=== PATIENT | female | born 1950 | race African-American/Black ===

== ENCOUNTER 2019-12-31 15:36 | Inpatient (IN) | payer MEDICARE, OTHER ==
[~2019-12-31] VITALS: Ht 162.6 cm; Wt 82.6 kg
[2019-12-31] VITALS (9 sets, daily range): BP systolic 144–200; BP diastolic 58–89
[2019-12-31] MEDS ORDERED: IBUPROFEN600 MG ORAL (15:41)
[2019-12-31] MEDS ORDERED: AMLODIPINE BESY10 MG ORAL (15:41)
[2019-12-31] MEDS ORDERED: ISOSORBIDE MONO60 M1 PO (15:41)
[2019-12-31] MEDS ORDERED: HYDROCHLOROTHIA25 MG ORAL (15:41)
[2019-12-31] MEDS ORDERED: LEVOTHYROXINE125 MCG ORAL (15:41)
--- NOTE | 2019-12-31 15:41 | Emergency Room Report ---
History of Present Illness General Chief Complaint: Generalized Weakness Source: Patient, Medical Record, EMS Present Illness HPI 69-year-old female, past medical history of hypothyroidism, on thyroid medication history of partial hysterectomy history of breast cancer in remission presents with 1 week of feeling tired, no known aggravating relieving factors severity was moderate, constant, patient denies any chest pain but she does endorse feeling fatigued, patient had outpatient labs drawn showing a hemoglobin of 6.6 patient was sent in from clinic to receive a blood transfusion and admission and determine cause of anemia. Patient denies any black tarry stools, no vaginal bleeding no rectal bleeding Allergies: Coded Allergies: No Known Allergies (Unverified , 12/31/19) Patient History Past Medical History: see triage record Reviewed Nursing Documentation: PMH: Agreed; PSxH: Agreed Nursing Documentation-PMH Past Medical History: No History, Except For Hx Hypertension: Yes - Anemia Review of Systems All Other Systems: negative except mentioned in HPI Physical Exam Sp02 EP Interpretation: reviewed, normal General Appearance: alert, thin Head: normocephalic, atraumatic Eyes: bilateral eye PERRL, bilateral eye EOMI, bilateral eye conjunctivae pale ENT: uvula midline, moist mucus membranes Neck: supple, thyroid normal, supple/symm/no masses Respiratory: lungs clear, no respiratory distress, no retraction, no accessory muscle use Cardiovascular #1: normal peripheral pulses, regular rate, rhythm, no edema, no gallop, no murmur Gastrointestinal: non tender, soft, no guarding, no rebound Musculoskeletal: normal inspection Neurologic: alert, oriented x3 Psychiatric: mood/affect normal Skin: no rash, warm/dry Procedures Critical Care Time Critical Care Time Given the critical condition in which the patient arrived, the patient was immediately assessed by myself and the nurse, and cardiac monitoring initiated due to the potential for rapid decompensation of the patient's clinical condition. During the course of the patient's stay, I spent a considerable amount of time at the bedside performing serial re-evaluations of the patient's hemodynamic and clinical status because of the recognized potential threat to life or limb in this condition. I then had a chance to review not only all of the available current laboratory and radiographic studies obtained today, but I also reviewed old records available to me at the time. Additionally, any ancillary information available including airplane pilot photogrammetry records were reviewed. Sequential vital signs were obtained. Critical Care time of 33 minutes was performed exclusive of billable procedures. Medical Decision Making Diagnostic Impression: Primary Impression: Symptomatic anemia ER Course 69-year-old female presents with anemia of 6.6, unknown cause, differential diagnosis includes iron deficiency, occult bleed, anemia of chronic disease, plan is to transfuse patient, admit patient for work-up, patient will receive a blood transfusion Reevaluation 6:17 PM patient remained stable Patient accepted blood transfusion plan to transfuse blood Patient admitted to Dr. Gaspar Laboratory Tests Test 12/31/19 15:45 White Blood Count 8.3 K/UL (4.8-10.8) Red Blood Count 3.31 M/UL (4.20-5.40) L Hemoglobin 7.3 G/DL (12.0-16.0) L Hematocrit 24.6 % (37.0-47.0) L Mean Corpuscular Volume 74 FL (80-99) L Mean Corpuscular Hemoglobin 22.0 PG (27.0-31.0) L Mean Corpuscular Hemoglobin Concent 29.7 G/DL (32.0-36.0) L Red Cell Distribution Width 14.8 % (11.6-14.8) Platelet Count 334 K/UL (150-450) Mean Platelet Volume 5.9 FL (6.5-10.1) L Neutrophils (%) (Auto) % (45.0-75.0) Lymphocytes (%) (Auto) % (20.0-45.0) Monocytes (%) (Auto) % (1.0-10.0) Eosinophils (%) (Auto) % (0.0-3.0) Basophils (%) (Auto) % (0.0-2.0) Differential Total Cells Counted 100 Neutrophils % (Manual) 59 % (45-75) Lymphocytes % (Manual) 24 % (20-45) Monocytes % (Manual) 3 % (1-10) Eosinophils % (Manual) 11 % (0-3) H Basophils % (Manual) 3 % (0-2) H Band Neutrophils 0 % (0-8) Platelet Estimate Adequate Platelet Morphology Normal Polychromasia 1+ Hypochromasia 2+ Anisocytosis 1+ Microcytosis 2+ Prothrombin Time 11.0 SEC (9.30-11.50) Prothrombin Time INR 1.0 (0.9-1.1) Activated Partial Thromboplast Time 28 SEC (23-33) Sodium Level 145 MMOL/L (136-145) Potassium Level 4.5 MMOL/L (3.5-5.1) Chloride Level 109 MMOL/L (98-107) H Carbon Dioxide Level 19 MMOL/L (21-32) L Anion Gap 17 mmol/L (5-15) H Blood Urea Nitrogen 97 mg/dL (7-18) H Creatinine 4.4 MG/DL (0.55-1.30) H Estimate Glomerular Filtration Rate 9.9 mL/min (>60) Glucose Level 119 MG/DL (74-106) H Calcium Level 9.7 MG/DL (8.5-10.1) Total Bilirubin 0.2 MG/DL (0.2-1.0) Aspartate Amino Transferase (AST) 18 U/L (15-37) Alanine Aminotransferase (ALT) 15 U/L (12-78) Alkaline Phosphatase 109 U/L (46-116) Total Protein 9.2 G/DL (6.4-8.2) H Albumin 3.6 G/DL (3.4-5.0) Globulin 5.6 g/dL Albumin/Globulin Ratio 0.6 (1.0-2.7) L Disposition: ADMITTED INPATIENT Condition: Serious Daniel Peña MD Dec 31, 2019 15:41
[2019-12-31 16:38] LABS: ANION GAP 17 mmol/L (5-15); BLOOD UREA NITROGEN 97 mg/dL (7-18); CALCIUM 9.7 MG/DL (8.5-10.1); CARBON DIOXIDE 19 MMOL/L (21-32); CHLORIDE 109 MMOL/L (98-107); CREATININE 4.4 MG/DL (0.55-1.30); POTASSIUM 4.5 MMOL/L (3.5-5.1); SODIUM 145 MMOL/L (136-145)
[2019-12-31 16:41] LABS: HEMATOCRIT 24.6 % (37.0-47.0); HEMOGLOBIN 7.3 G/DL (12.0-16.0); MEAN CORPUSCULAR VOLUME 74 FL (80-99); PLATELET COUNT 334 K/UL (150-450); RED BLOOD COUNT 3.31 M/UL (4.20-5.40); RED CELL DISTRIBUTION WIDTH 14.8 % (11.6-14.8); WHITE BLOOD COUNT 8.3 K/UL (4.8-10.8)
[2019-12-31 16:42] LABS: ALANINE AMINOTRANSFERASE 15 U/L (12-78); ALBUMIN 3.6 G/DL (3.4-5.0); ALBUMIN/GLOBULIN RATIO 0.6 (1.0-2.7); ALKALINE PHOSPHATASE 109 U/L (46-116); ASPARTATE AMINO TRANSFERASE 18 U/L (15-37); BILIRUBIN,TOTAL 0.2 MG/DL (0.2-1.0)
[2019-12-31] MEDS ORDERED: Zolpidem 5mg tab ORAL PRN (18:45)
[2019-12-31] MEDS ORDERED: Miralax 17gm pkt ORAL PRN (18:45)
[2019-12-31 19:22] LABS: CREATINE KINASE 236 U/L (26-308)
[2019-12-31 21:26] LABS: INR 1.1 (0.9-1.1)
[2019-12-31 21:35] LABS: LACTATE DEHYDROGENASE 168 U/L (81-234)
[2019-12-31 22:03] LABS: % IRON SATURATION 12 % (15-50); IRON 23 ug/dL (50-175); TOTAL IRON BINDING CAPACITY 200 ug/dL (250-450)
[2019-12-31] MEDS ORDERED: Labetalol 5mg/ml 20ml vial IV ONE (22:15)
[2020-01-01] VITALS: BP 151/67
[2020-01-01 02:59] LABS: APPEARANCE,URINE CLEAR; BILIRUBIN, URINE NEGATIVE (NEGATIVE); COLOR,URINE PALE YELLOW; GLUCOSE, URINE (UA) NEGATIVE (NEGATIVE); KETONES,URINE NEGATIVE (NEGATIVE); LEUKOCYTE ESTERASE ,URINE NEGATIVE (NEGATIVE); NITRITE,URINE NEGATIVE (NEGATIVE); PH,URINE 5 (4.5-8.0); PROTEIN,URINE 3+ (NEGATIVE); UROBILINOGEN,URINE NORMAL MG/DL (0.0-1.0)
[2020-01-01 04:00] VITALS: BP 155/74
[2020-01-01 07:23] LABS: INR 1.1 (0.9-1.1)
[2020-01-01 07:38] LABS: BASOPHILS % (AUTO) 0.9 % (0.0-2.0); EOSINOPHILS % (AUTO) 6.9 % (0.0-3.0); HEMATOCRIT 25.4 % (37.0-47.0); LYMPHOCYTES % (AUTO) 25.5 % (20.0-45.0); MEAN CORPUSCULAR VOLUME 74 FL (80-99); MONOCYTES % (AUTO) 9.2 % (1.0-10.0); NEUTROPHILS % (AUTO) 57.5 % (45.0-75.0); PLATELET COUNT 295 K/UL (150-450); RED BLOOD COUNT 3.44 M/UL (4.20-5.40); RED CELL DISTRIBUTION WIDTH 15.6 % (11.6-14.8); WHITE BLOOD COUNT 7.3 K/UL (4.8-10.8)
[2020-01-01 08:00] VITALS: BP 149/66
[2020-01-01 08:20] LABS: ALANINE AMINOTRANSFERASE 15 U/L (12-78); ALBUMIN/GLOBULIN RATIO 0.6 (1.0-2.7); ALKALINE PHOSPHATASE 93 U/L (46-116); ANION GAP 13 mmol/L (5-15); ASPARTATE AMINO TRANSFERASE 17 U/L (15-37); BILIRUBIN,TOTAL 0.2 MG/DL (0.2-1.0); BLOOD UREA NITROGEN 91 mg/dL (7-18); CALCIUM 9.4 MG/DL (8.5-10.1); CARBON DIOXIDE 20 MMOL/L (21-32); CHLORIDE 110 MMOL/L (98-107); CREATININE 4.1 MG/DL (0.55-1.30); POTASSIUM 4.7 MMOL/L (3.5-5.1); SODIUM 143 MMOL/L (136-145)
[2020-01-01 08:45] LABS: PHOSPHORUS 4.6 MG/DL (2.5-4.9)
--- NOTE | 2020-01-01 10:00 | Consultation ---
Consult Note Consult Note I was asked to evaluate the patient at the request of Dr. islas for renal failure. Patient was seen in the room with her son present. Patient states that she knows that in the past she had kidney problems. At times she has been followed by a kidney specialist. Patient states that the reason she is in the hospital is that she is anemic. She also states that she received a blood transfusion and feels better at this time. ER 69-year-old female, past medical history of hypothyroidism, on thyroid medication history of partial hysterectomy history of breast cancer in remission presents with 1 week of feeling tired, no known aggravating relieving factors severity was moderate, constant, patient denies any chest pain but she does endorse feeling fatigued, patient had outpatient labs drawn showing a hemoglobin of 6.6 patient was sent in from clinic to receive a blood transfusion and admission and determine cause of anemia. Patient denies any black tarry stools, no vaginal bleeding no rectal bleeding : No Known Allergies (Unverified , 12/31/19) Past Medical History: No History, Except For Hx Hypertension: Yes - Anemia examined data reviewed discussed with son Assessment/Plan Acute renal failure- ? CKD underlying- Severe Anemia- Low MCV HypoThyroid h/o Breast Ca 2010 - surgery- chemo- radiation Iron panel Keep BP in check Avoid Nephrotoxics Kidney TALYA 2D echo folic acid Iggy Springer MD Jan 01, 2020 10:00
[2020-01-01 10:16] LABS: CHOLESTEROL 173 MG/DL (< 200); HDL CHOLESTEROL 45 MG/DL (40-60); TRIGLYCERIDES 58 MG/DL (30-150)
--- NOTE | 2020-01-01 11:41 | Diagnostic Imaging Report ---
Indication:Elevated Bun and Creatinine. Technique: Grayscale and duplex Doppler imaging of the kidneys performed. Comparison: None Findings: Both kidneys are echogenic consistent with medical renal disease. There is no hydronephrosis.. There is a nonshadowing large echogenic lesion within the right kidney measuring about 3 cm. This is a suspected angiomyolipoma. The right kidney measures 8.5 cm. in length. The left kidney measures 9.1 cm. in length. The IVC is patent. Urinary bladder is distended. IMPRESSION: Medical renal disease. Left kidney somewhat limited in evaluation. 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 CT may be confirmatory.
[2020-01-01 12:00] VITALS: BP 179/77
--- NOTE | 2020-01-01 12:35 | Consultation ---
History of Present Illness General Date patient seen: Jan 01, 2020 Chief Complaint: Generalized Weakness Present Illness HPI 69-year-old female, past medical history of hypothyroidism, CAD, HTN, breast cancer presented in ER with 1 week of feeling tired, no known aggravating factors. patient had outpatient labs drawn showing a hemoglobin of 6.6 patient was sent in from clinic to receive a blood transfusion and admission. Pt was also found to be in renal failure. She is admitted for further management. Allergies: Coded Allergies: No Known Allergies (Unverified , 12/31/19) Medication History Scheduled Amlodipine Besylate* (Amlodipine Besylate*), 10 MG ORAL DAILY, (Reported) Hydrochlorothiazide* (Hydrochlorothiazide*), 25 MG ORAL DAILY, (Reported) Isosorbide Mononitrate (Isosorbide Mononitrate Er), 60 MG PO DAILY, (Reported) Levothyroxine Sodium* (Levothyroxine Sodium*), 200 MCG ORAL DAILY, (Reported) Scheduled PRN Ibuprofen* (Motrin*), 800 MG ORAL Q8H PRN for For Pain, (Reported) Patient History Healthcare decision maker Resuscitation status Full Code Advanced Directive on File No Past Medical/Surgical History Past Medical/Surgical History: (1) Hypothyroidism (2) History of hypertension (3) CAD (coronary artery disease) (4) Acute on chronic renal insufficiency Review of Systems All Other Systems: negative except mentioned in HPI Physical Exam General Appearance: WD/WN, no apparent distress Lines, tubes and drains: peripheral HEENT: normocephalic, atraumatic Neck: non-tender, normal alignment Respiratory/Chest: lungs clear Breasts: no masses Cardiovascular/Chest: normal peripheral pulses, normal rate Abdomen: normal bowel sounds Genitourinary/Rectal: normal genital exam Extremities: normal range of motion Skin Exam: normal pigmentation Last 24 Hour Vital Signs Date Time Temp Pulse Resp B/P (MAP) Pulse Ox O2 Delivery O2 Flow Rate FiO2 01/01/20 12:00 98.2 67 18 179/77 (111) 100 01/01/20 09:59 67 149/66 01/01/20 08:00 98.9 67 20 149/66 (93) 100 01/01/20 04:00 98.5 76 18 155/74 (101) 99 78 01/01/20 00:00 98.5 78 20 151/67 (95) 99 78 2/13/20 23:32 Room Air 12/31/19 23:00 97.8 81 18 144/58 99 Room Air 12/31/19 22:37 97.4 77 18 144/58 99 Room Air 74 12/31/19 22:24 88 200/78 12/31/19 22:24 200/78 12/31/19 22:15 97.4 74 18 200/78 99 Room Air 12/31/19 22:00 97.2 75 18 177/70 99 Room Air 12/31/19 21:45 97.7 83 17 169/72 100 Room Air 12/31/19 21:05 81 186/74 12/31/19 20:41 192/87 12/31/19 20:15 97.8 77 17 197/72 100 Room Air 12/31/19 19:18 97.8 81 17 155/89 100 Room Air 12/31/19 18:54 97.5 77 16 164/75 100 Room Air 12/31/19 17:31 97.5 70 16 171/71 97 Room Air 12/31/19 15:49 84 16 Room Air 12/31/19 15:49 97.3 84 16 145/86 100 Room Air 12/31/19 15:37 97.3 84 16 145/86 (105) 100 Room Air Intake and Output 12/31/19 01/01/20 19:00 07:00 Output Total 0 ml Balance 0 ml Output Urine Total 0 ml Laboratory Tests Test 12/31/19 15:45 12/31/19 20:48 01/01/20 02:00 01/01/20 06:30 White Blood Count 8.3 K/UL (4.8-10.8) 7.3 K/UL (4.8-10.8) Red Blood Count 3.31 M/UL (4.20-5.40) L 3.44 M/UL (4.20-5.40) L Hemoglobin 7.3 G/DL (12.0-16.0) L 8.0 G/DL (12.0-16.0) L Hematocrit 24.6 % (37.0-47.0) L 25.4 % (37.0-47.0) L Mean Corpuscular Volume 74 FL (80-99) L 74 FL (80-99) L Mean Corpuscular Hemoglobin 22.0 PG (27.0-31.0) L 23.1 PG (27.0-31.0) L Mean Corpuscular Hemoglobin Concent 29.7 G/DL (32.0-36.0) L 31.3 G/DL (32.0-36.0) L Red Cell Distribution Width 14.8 % (11.6-14.8) 15.6 % (11.6-14.8) H Platelet Count 334 K/UL (150-450) 295 K/UL (150-450) Mean Platelet Volume 5.9 FL (6.5-10.1) L 5.2 FL (6.5-10.1) L Neutrophils (%) (Auto) % (45.0-75.0) 57.5 % (45.0-75.0) Lymphocytes (%) (Auto) % (20.0-45.0) 25.5 % (20.0-45.0) Monocytes (%) (Auto) % (1.0-10.0) 9.2 % (1.0-10.0) Eosinophils (%) (Auto) % (0.0-3.0) 6.9 % (0.0-3.0) H Basophils (%) (Auto) % (0.0-2.0) 0.9 % (0.0-2.0) Differential Total Cells Counted 100 Neutrophils % (Manual) 59 % (45-75) Lymphocytes % (Manual) 24 % (20-45) Monocytes % (Manual) 3 % (1-10) Eosinophils % (Manual) 11 % (0-3) H Basophils % (Manual) 3 % (0-2) H Band Neutrophils 0 % (0-8) Other Cell Type Pathologist review Platelet Estimate Adequate Platelet Morphology Normal Polychromasia 1+ Hypochromasia 2+ Anisocytosis 1+ Microcytosis 2+ Erythrocyte Sedimentation Rate 130 MM/HR (0-30) H 112 MM/HR (0-30) H Reticulocyte Count 1.9 % (0.5-2.0) Prothrombin Time 11.0 SEC (9.30-11.50) 11.2 SEC (9.30-11.50) 11.4 SEC (9.30-11.50) Prothromb Time International Ratio 1.0 (0.9-1.1) 1.1 (0.9-1.1) 1.1 (0.9-1.1) Activated Partial Thromboplast Time 28 SEC (23-33) 26 SEC (23-33) 28 SEC (23-33) Sodium Level 145 MMOL/L (136-145) 143 MMOL/L (136-145) Potassium Level 4.5 MMOL/L (3.5-5.1) 4.7 MMOL/L (3.5-5.1) Chloride Level 109 MMOL/L (98-107) H 110 MMOL/L (98-107) H Carbon Dioxide Level 19 MMOL/L (21-32) L 20 MMOL/L (21-32) L Anion Gap 17 mmol/L (5-15) H 13 mmol/L (5-15) Blood Urea Nitrogen 97 mg/dL (7-18) H 91 mg/dL (7-18) H Creatinine 4.4 MG/DL (0.55-1.30) H 4.1 MG/DL (0.55-1.30) H Estimat Glomerular Filtration Rate 9.9 mL/min (>60) 13.1 mL/min (>60) Glucose Level 119 MG/DL (74-106) H 89 MG/DL (74-106) Uric Acid 8.2 MG/DL (2.6-7.2) H Calcium Level 9.7 MG/DL (8.5-10.1) 9.4 MG/DL (8.5-10.1) Total Bilirubin 0.2 MG/DL (0.2-1.0) 0.2 MG/DL (0.2-1.0) Aspartate Amino Transf (AST/SGOT) 18 U/L (15-37) 17 U/L (15-37) Alanine Aminotransferase (ALT/SGPT) 15 U/L (12-78) 15 U/L (12-78) Alkaline Phosphatase 109 U/L (46-116) 93 U/L (46-116) Total Creatine Kinase 236 U/L (26-308) Total Protein 9.2 G/DL (6.4-8.2) H 8.0 G/DL (6.4-8.2) Albumin 3.6 G/DL (3.4-5.0) 3.0 G/DL (3.4-5.0) L Globulin 5.6 g/dL 5.0 g/dL Albumin/Globulin Ratio 0.6 (1.0-2.7) L 0.6 (1.0-2.7) L Iron Level 23 ug/dL (50-175) L Total Iron Binding Capacity 200 ug/dL (250-450) L Percent Iron Saturation 12 % (15-50) L Unsaturated Iron Binding 177 ug/dL (112-346) Lactate Dehydrogenase 168 U/L (81-234) Carcinoembryonic Antigen Pending Vitamin B12 Level 463 PG/ML (193-986) Folate 7.4 NG/ML (8.6-58.9) L Urine Color Pale yellow Urine Appearance Clear Urine pH 5 (4.5-8.0) Urine Specific [place] 1.010 (1.005-1.035) Urine Protein 3+ (NEGATIVE) H Urine Glucose (UA) Negative (NEGATIVE) Urine Ketones Negative (NEGATIVE) Urine Blood 2+ (NEGATIVE) H Urine Nitrite Negative (NEGATIVE) Urine Bilirubin Negative (NEGATIVE) Urine Urobilinogen Normal MG/DL (0.0-1.0) Urine Leukocyte Esterase Negative (NEGATIVE) Urine RBC 2-4 /HPF (0 - 2) H Urine WBC 0 /HPF (0 - 2) Urine Squamous Epithelial Cells Few /LPF (NONE/OCC) Urine Bacteria None /HPF (NONE) Urine Eosinophils None seen (NONE SEEN) Urine Random Sodium 82 mmol/L (20-110) Urine Potassium Timed 22 mmol/L (12-62) Hemoglobin A1c 5.8 % (4.3-6.0) Phosphorus Level 4.6 MG/DL (2.5-4.9) Magnesium Level 2.0 MG/DL (1.8-2.4) Ferritin 89 NG/ML (8-388) C-Reactive Protein, Quantitative 5.2 mg/dL (0.00-0.90) H Triglycerides Level 58 MG/DL (30-150) Cholesterol Level 173 MG/DL (< 200) LDL Cholesterol 107 mg/dL (<100) H HDL Cholesterol 45 MG/DL (40-60) Cholesterol/HDL Ratio 3.8 (3.3-4.4) Thyroid Stimulating Hormone (TSH) 16.889 uiU/mL (0.358-3.740) Test 2/14/20 11:29 Stool Occult Blood Pending Height (Feet): 5 Height (Inches): 4.00 Weight (Pounds): 150 Medications Current Medications Medications (Trade) Dose Ordered Sig/Liam Route PRN Reason Start Time Stop Time Status Last Admin Dose Admin Acetaminophen (Tylenol) 650 mg Q4H PRN ORAL fever 12/31/19 18:45 01/30/20 18:44 Amlodipine Besylate (Norvasc) 10 mg DAILY ORAL 01/01/20 09:00 01/31/20 08:59 01/01/20 09:59 Barium Sulfate (Readi-Cat 2) 450 ml NOW PRN ORAL Radiology Procedure 01/01/20 12:30 01/03/20 12:26 UNV Dextrose (Dextrose 50%) 25 ml Q30M PRN IV Hypoglycemia 12/31/19 18:45 01/30/20 18:44 Dextrose (Dextrose 50%) 50 ml Q30M PRN IV Hypoglycemia 12/31/19 18:45 01/30/20 18:44 Docusate Sodium (Colace) 100 mg THREE TIMES A DAY ORAL 01/01/20 13:00 01/31/20 12:59 Folic Acid (Folate) 2 mg DAILY ORAL 01/01/20 10:15 01/31/20 10:14 01/01/20 11:13 Hydralazine HCl (Apresoline) 25 mg Q4H PRN ORAL bp over 160 syst 01/01/20 10:15 01/31/20 10:14 Iron Sucrose 100 mg/Sodium Chloride 55 ml @ 200 mls/hr BEDTIME IV 01/01/20 21:00 01/10/20 21:17 Levothyroxine Sodium (Synthroid) 200 mcg Q24H ORAL 01/01/20 06:30 01/31/20 06:29 01/01/20 05:52 Ondansetron HCl (Zofran) 4 mg Q6H PRN IVP Nausea & Vomiting 12/31/19 18:45 01/30/20 18:44 Pantoprazole (Protonix) 40 mg EVERY 12 HOURS ORAL 01/01/20 21:00 01/31/20 20:59 Polyethylene Glycol (Miralax) 17 gm HSPRN PRN ORAL Constipation 12/31/19 18:45 01/30/20 18:44 Zolpidem Tartrate (Ambien) 5 mg HSPRN PRN ORAL Insomnia 12/31/19 18:45 01/07/20 18:44 Assessment/Plan Problem List: (1) Symptomatic anemia ICD Codes: D64.9 - Anemia, unspecified SNOMED: 177860975 (2) Acute on chronic renal insufficiency ICD Codes: N28.9 - Disorder of kidney and ureter, unspecified; N18.9 - Chronic kidney disease, unspecified SNOMED: 252728166, 058517543 (3) History of hypertension ICD Codes: Z86.79 - Personal history of other diseases of the circulatory system SNOMED: 527876343 (4) Hypothyroidism ICD Codes: E03.9 - Hypothyroidism, unspecified SNOMED: 67771128 (5) CAD (coronary artery disease) ICD Codes: I25.10 - Atherosclerotic heart disease of [place] coronary artery without angina pectoris SNOMED: 89897162 Assessment/Plan: prbc times one anemia w/u check stool for OB check T3 and T4, resume home meds avoid nephrotoxic meds renal evaluation dvt prophylaxis. Bean Gil MD Jan 01, 2020 12:35
[2020-01-01] MEDS: HydrALAZINE 25mg tab ORAL PRN (12:39)
[2020-01-01] MEDS: Docusate 100mg cap ORAL SCH ×2 (12:41→18:00)
--- NOTE | 2020-01-01 14:14 | Diagnostic Imaging Report ---
Indication: Dyspnea Comparison: None A single view chest radiograph was obtained. Findings: Pulmonary vascularity is slightly prominent. The heart is enlarged. Aorta is enlarged. Bones are osteopenic. Infiltrate in the left perihilar region not excludable. Surgical clips in the right axilla noted. IMPRESSION: Mild pulmonary vascular congestion may be present. Correlate clinically Question of a left perihilar infiltrate. Follow-up recommended
[2020-01-01 16:00] VITALS: BP 141/69
--- NOTE | 2020-01-01 18:09 | History & Physical ---
History and Physical History & Physicial Amlodipine Besylate* (Amlodipine Besylate*), 10 MG ORAL DAILY, (Reported) Hydrochlorothiazide* (Hydrochlorothiazide*), 25 MG ORAL DAILY, (Reported) Isosorbide Mononitrate (Isosorbide Mononitrate Er), 60 MG PO DAILY, (Reported) Levothyroxine Sodium* (Levothyroxine Sodium*), 200 MCG ORAL DAILY, (Reported) Avila Gaspar MD Jan 01, 2020 18:09
[2020-01-01 20:00] VITALS: BP 147/74
--- NOTE | 2020-01-01 21:45 | History and Physical Report ---
DATE OF ADMISSION: 12/31/2019 CHIEF COMPLAINT: Severe weakness. HISTORY OF PRESENT ILLNESS: This is a 69-year-old female with past medical history significant for hypothyroidism, chronic kidney disease, hypertension, coronary artery disease, breast cancer, who has presented to emergency room complaining about feeling tired. The patient states her symptoms have become progressively worse over the past one week. She had outside laboratory drawn and noted to have hemoglobin of 6.6 and subsequently was advised to come to the hospital for possible transfusion. The patient upon arrival to the hospital was noted to have worsening of renal function and hemoglobin was noted to be 7.3, and subsequently the patient was admitted to the hospital with symptomatic anemia with worsening of renal function. PAST MEDICAL HISTORY/PAST SURGICAL HISTORY: As above. History of chronic kidney disease, hypothyroidism, coronary artery disease, hypertension, and breast cancer. MEDICATIONS AT HOME: Please refer to medication reconciliation. ALLERGIES: No known drug allergies. SOCIAL HISTORY: Denies any smoking, alcohol, or drugs. FAMILY HISTORY: Noncontributory. REVIEW OF SYSTEMS: Mostly as above. Denies any dysuria, frequency, or hematuria. Denies any loss of consciousness. The patient states that she has been having extensive workup for anemia including EGD and colonoscopy recently. Denies any bright red blood per rectum. Denies any fall or head trauma. Denies any gum bleeding. PHYSICAL EXAMINATION: VITAL SIGNS: On admission, temperature 97.3, pulse of 84, respirations 16, and blood pressure 145/86. GENERAL: The patient is awake, responsive, and in no acute distress. HEAD AND NECK: Pupils are equal and reactive to light. Extraocular movements intact. NECK: Supple. No JVD. LUNGS: Good air entry. No wheeze or rales. HEART: S1, S2. Regular rhythm. No murmur or gallops. ABDOMEN: Soft, nondistended, and nontender. Positive bowel sounds. EXTREMITIES: No cyanosis, clubbing, or edema. NEUROLOGIC: Cranial nerves II through XII grossly intact. RECTAL: Refused and deferred. GENITOURINARY: Refused and deferred. PSYCHIATRIC: Mood and affect is intact. LABORATORY AND DIAGNOSTIC DATA: Laboratory on admission from the emergency room is significant for WBC of 8.3, hemoglobin 7.3, hematocrit 24, platelet is 334,000. ESR is 130. Reticulocyte count is 1.9. Sodium 145, potassium 4.5, chloride 109, bicarb 19, BUN 97, creatinine 4.4, glucose is 119, uric acid is 8.2, AST of 18, ALT of 15, alkaline phosphatase was 109. Lactate dehydrogenase is 168. Vitamin B12 is 463. Folic acid is 7.4. Urinalysis is +3 protein, +2 blood, 2-4 rbc's, negative leukocytes. PT of 11, INR 1.1, and PTT of 28. Stool for still pending. Renal ultrasound, medical renal disease, left kidney somewhat limited to evaluation, 3 cm echogenic lesion on the right kidney, probably angiolipoma. Chest x-ray, mild pulmonary vascular congestion with correlated clinically, left perihilar infiltrate. ASSESSMENT: 1. Severe symptomatic anemia, possible due to anemia of chronic disease; however, cannot rule out GI etiology. 2. Hypothyroidism. 3. Folic acid deficiency. 4. Hypertension. 5. Coronary artery disease. 6. Acute kidney injury on chronic renal insufficiency. 7. History of breast cancer. PLAN: Admit the patient to medical floor. We will follow up with the laboratory. Code status is Full Code. We will consider transfusion if needed. Follow up with Nephrology and Pulmonary consultation. DVT prophylaxis, SCD. Avila Gaspar M.D. DR: Patsy JOB#: [id number] CC:
[2020-01-02] VITALS (7 sets, daily range): BP systolic 140–174; BP diastolic 55–82
[2020-01-02] MEDS: Levothyroxine 125mcg tab ORAL SCH (05:48)
--- NOTE | 2020-01-02 07:47 | Pulmonology Progress Note ---
Assessment/Plan Assessment/Plan ASSESSMENT symptomatic anemia Anemia of iron deficiency Acute kidney injury on chronic kidney disease Hypertension Hypothyroidism with elevated TSH Coronary artery disease PLAN OF CARE MS floor S/P IV fluids S/P 1 unit PRBC stool OB+, CEA pending anemia work-up c/w YOSEF , started on Venofer folate replacement initiated CT abdomen /pelvis Bowel regimen GI prophylaxis Venous duplex bilateral lower extremity, SCDs IF negative BP management is a CCB and hydralazine as needed for BP start spikes Elevated TSH level free T3, levothyroxine dose increased repeat TFT in 1 month Renal ultrasound with medical renal disease Monitor renal parameters lites, correct lites as needed avoid nephrotoxic Nephro on board Supportive care case discussed and evaluated by supervising physician Subjective Allergies: Coded Allergies: No Known Allergies (Unverified , 12/31/19) Subjective s/p 1 u PRBC pulse ox stable , no signs of resp distress Objective Last 24 Hour Vital Signs Date Time Temp Pulse Resp B/P (MAP) Pulse Ox O2 Delivery O2 Flow Rate FiO2 01/02/20 04:00 98.4 69 21 153/81 (105) 99 01/02/20 00:00 98.0 75 20 158/79 (105) 99 01/01/20 21:00 Room Air 01/01/20 20:00 98.2 80 20 147/74 (98) 100 01/01/20 16:00 98.9 70 19 141/69 (93) 99 01/01/20 12:39 179/77 01/01/20 12:00 98.2 67 18 179/77 (111) 100 01/01/20 09:59 67 149/66 01/01/20 09:00 Room Air 01/01/20 08:00 98.9 67 20 149/66 (93) 100 General Appearance: no acute distress HEENT: normocephalic, atraumatic, anicteric Respiratory/Chest: lungs clear, normal breath sounds, no respiratory distress Cardiovascular: normal rate Abdomen: soft, non tender Extremities: no edema, pedal pulses normal Neurologic/Psychiatric: alert, responsive Musculoskeletal: normal muscle bulk Laboratory Tests 01/01/20 11:29: Stool Occult Blood Positive 01/02/20 05:30: White Blood Count [Pending], Red Blood Count [Pending], Hemoglobin [Pending], Hematocrit [Pending], Mean Corpuscular Volume [Pending], Mean Corpuscular Hemoglobin [Pending], Mean Corpuscular Hemoglobin Concent [Pending], Red Cell Distribution Width [Pending], Platelet Count [Pending], Mean Platelet Volume [ Pending], Neutrophils (%) (Auto) [Pending], Lymphocytes (%) (Auto) [Pending], Monocytes (%) (Auto) [Pending], Eosinophils (%) (Auto) [Pending], Basophils (%) (Auto) [Pending], Erythrocyte Sedimentation Rate [Pending], Sodium Level [ Pending], Potassium Level [Pending], Chloride Level [Pending], Carbon Dioxide Level [Pending], Blood Urea Nitrogen [Pending], Creatinine [Pending], Estimat Glomerular Filtration Rate [Pending], Glucose Level [Pending], Calcium Level [ Pending], Phosphorus Level [Pending], Magnesium Level [Pending], Total Bilirubin [Pending], Aspartate Amino Transf (AST/SGOT) [Pending], Alanine Aminotransferase (ALT/SGPT) [Pending], Alkaline Phosphatase [Pending], C- Reactive Protein, Quantitative [Pending], Total Protein [Pending], Albumin [ Pending], Globulin [Pending] Current Medications Medications (Trade) Dose Ordered Sig/Liam Route PRN Reason Start Time Stop Time Status Last Admin Dose Admin Acetaminophen (Tylenol) 650 mg Q4H PRN ORAL fever 12/31/19 18:45 01/30/20 18:44 Amlodipine Besylate (Norvasc) 10 mg DAILY ORAL 01/01/20 09:00 01/31/20 08:59 01/01/20 09:59 Barium Sulfate (Readi-Cat 2) 450 ml NOW PRN ORAL Radiology Procedure 01/01/20 12:30 01/03/20 12:26 Dextrose (Dextrose 50%) 25 ml Q30M PRN IV Hypoglycemia 12/31/19 18:45 01/30/20 18:44 Dextrose (Dextrose 50%) 50 ml Q30M PRN IV Hypoglycemia 12/31/19 18:45 01/30/20 18:44 Docusate Sodium (Colace) 100 mg THREE TIMES A DAY ORAL 01/01/20 13:00 01/31/20 12:59 Folic Acid (Folate) 2 mg DAILY ORAL 01/01/20 10:15 01/31/20 10:14 01/01/20 11:13 Hydralazine HCl (Apresoline) 25 mg Q4H PRN ORAL bp over 160 syst 01/01/20 10:15 01/31/20 10:14 01/01/20 12:39 Iron Sucrose 100 mg/Sodium Chloride 55 ml @ 200 mls/hr BEDTIME IV 01/01/20 21:00 01/10/20 21:17 01/01/20 20:58 Levothyroxine Sodium (Synthroid) 100 mcg Q24H ORAL 01/02/20 06:30 02/01/20 06:29 01/02/20 05:48 Levothyroxine Sodium (Synthroid) 125 mcg DAILY@0630 ORAL 01/02/20 06:30 02/01/20 06:29 01/02/20 05:48 Ondansetron HCl (Zofran) 4 mg Q6H PRN IVP Nausea & Vomiting 12/31/19 18:45 01/30/20 18:44 Pantoprazole (Protonix) 40 mg EVERY 12 HOURS ORAL 01/01/20 21:00 01/31/20 20:59 01/01/20 20:57 Polyethylene Glycol (Miralax) 17 gm HSPRN PRN ORAL Constipation 12/31/19 18:45 01/30/20 18:44 Zolpidem Tartrate (Ambien) 5 mg HSPRN PRN ORAL Insomnia 12/31/19 18:45 01/07/20 18:44 April Díaz NP Jan 02, 2020 07:47
[2020-01-02 08:20] LABS: ALANINE AMINOTRANSFERASE 19 U/L (12-78); ALBUMIN/GLOBULIN RATIO 0.6 (1.0-2.7); ALKALINE PHOSPHATASE 105 U/L (46-116); ANION GAP 16 mmol/L (5-15); ASPARTATE AMINO TRANSFERASE 16 U/L (15-37); BILIRUBIN,TOTAL 0.2 MG/DL (0.2-1.0); BLOOD UREA NITROGEN 86 mg/dL (7-18); CALCIUM 8.9 MG/DL (8.5-10.1); CARBON DIOXIDE 18 MMOL/L (21-32); CHLORIDE 108 MMOL/L (98-107); PHOSPHORUS 4.6 MG/DL (2.5-4.9); POTASSIUM 5.2 MMOL/L (3.5-5.1); SODIUM 142 MMOL/L (136-145)
[2020-01-02] MEDS: Docusate 100mg cap ORAL SCH ×4 (08:48→17:28)
[2020-01-02] MEDS ORDERED: Sodium Polystyrene Sulfonate 15gm Powder ORAL SCH (09:00)
[2020-01-02 09:50] LABS: BASOPHILS % (AUTO) 0.9 % (0.0-2.0); EOSINOPHILS % (AUTO) 6.2 % (0.0-3.0); HEMATOCRIT 29.2 % (37.0-47.0); HEMOGLOBIN 9.2 G/DL (12.0-16.0); LYMPHOCYTES % (AUTO) 22.5 % (20.0-45.0); MEAN CORPUSCULAR VOLUME 74 FL (80-99); MONOCYTES % (AUTO) 8.1 % (1.0-10.0); NEUTROPHILS % (AUTO) 62.3 % (45.0-75.0); PLATELET COUNT 265 K/UL (150-450); RED BLOOD COUNT 3.95 M/UL (4.20-5.40); RED CELL DISTRIBUTION WIDTH 15.8 % (11.6-14.8); WHITE BLOOD COUNT 7.5 K/UL (4.8-10.8)
[2020-01-02] MEDS: HydrALAZINE 25mg tab ORAL PRN (13:01)
--- NOTE | 2020-01-02 14:08 | Nephrology Progress Note ---
Assessment/Plan Problem List: (1) Acute on chronic renal insufficiency (2) History of hypertension (3) Anemia in chronic kidney disease (CKD) (4) Hypertensive kidney disease (5) Breast cancer Assessment Acute renal failure- ? CKD underlying- Severe Anemia- Low MCV HypoThyroid h/o Breast Ca . Plan Iron panel Keep BP in check Avoid Nephrotoxics 2D echo 60% folic acid Kidney TALYA Medical renal disease. Left kidney somewhat limited in evaluation. 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 CT may be confirmatory. Subjective ROS Limited/Unobtainable: No Constitutional: Reports: malaise Objective Objective Last 24 Hour Vital Signs Date Time Temp Pulse Resp B/P (MAP) Pulse Ox O2 Delivery O2 Flow Rate FiO2 01/02/20 13:01 174/82 01/02/20 12:00 98.2 64 18 174/82 (112) 100 01/02/20 11:42 Room Air 01/02/20 08:46 75 140/75 01/02/20 08:00 98.6 75 19 140/75 (96) 100 01/02/20 04:00 98.4 69 21 153/81 (105) 99 01/02/20 00:00 98.0 75 20 158/79 (105) 99 01/01/20 21:00 Room Air 01/01/20 20:00 98.2 80 20 147/74 (98) 100 01/01/20 16:00 98.9 70 19 141/69 (93) 99 Laboratory Tests 01/02/20 05:30: White Blood Count 7.5, Red Blood Count 3.95L, Hemoglobin 9.2L, Hematocrit 29.2L , Mean Corpuscular Volume 74L, Mean Corpuscular Hemoglobin 23.3L, Mean Corpuscular Hemoglobin Concent 31.5L, Red Cell Distribution Width 15.8H, Platelet Count 265, Mean Platelet Volume 5.5L, Neutrophils (%) (Auto) 62.3, Lymphocytes (%) (Auto) 22.5, Monocytes (%) (Auto) 8.1, Eosinophils (%) (Auto) 6.2H, Basophils (%) (Auto) 0.9, Erythrocyte Sedimentation Rate 112H, Sodium Level 142, Potassium Level 5.2H, Chloride Level 108H, Carbon Dioxide Level 18L, Anion Gap 16H, Blood Urea Nitrogen 86H, Creatinine 4.0H, Estimat Glomerular Filtration Rate 13.5, Glucose Level 85, Calcium Level 8.9, Phosphorus Level 4.6 , Magnesium Level 1.8, Total Bilirubin 0.2, Aspartate Amino Transf (AST/SGOT) 16 , Alanine Aminotransferase (ALT/SGPT) 19, Alkaline Phosphatase 105, C-Reactive Protein, Quantitative 4.6H, Total Protein 7.7, Albumin 3.0L, Globulin 4.7, Albumin/Globulin Ratio 0.6L Height (Feet): 5 Height (Inches): 4.00 Weight (Pounds): 150 General Appearance: no apparent distress, lethargic Cardiovascular: normal rate Respiratory/Chest: decreased breath sounds Abdomen: soft Iggy Springer MD Jan 02, 2020 14:08
--- NOTE | 2020-01-02 19:40 | Internal Med Progress Note ---
Subjective Date of Service: Jan 02, 2020 Physician Name Josué Jenkins Attending Physician Avila Gaspar MD Current Medications Medications (Trade) Dose Ordered Sig/Liam Route PRN Reason Start Time Stop Time Status Last Admin Dose Admin Acetaminophen (Tylenol) 650 mg Q4H PRN ORAL fever 12/31/19 18:45 01/30/20 18:44 Barium Sulfate (Readi-Cat 2) 450 ml NOW PRN ORAL Radiology Procedure 01/01/20 12:30 01/03/20 12:26 Dextrose (Dextrose 50%) 25 ml Q30M PRN IV Hypoglycemia 12/31/19 18:45 01/30/20 18:44 Dextrose (Dextrose 50%) 50 ml Q30M PRN IV Hypoglycemia 12/31/19 18:45 01/30/20 18:44 Docusate Sodium (Colace) 100 mg THREE TIMES A DAY ORAL 01/01/20 13:00 01/31/20 12:59 Docusate Sodium (Colace) 100 mg TID ORAL 01/02/20 18:00 02/01/20 17:59 Folic Acid (Folate) 2 mg DAILY ORAL 01/01/20 10:15 01/31/20 10:14 01/02/20 08:45 Hydralazine HCl (Apresoline) 25 mg Q4H PRN ORAL bp over 160 syst 01/01/20 10:15 01/31/20 10:14 01/02/20 13:01 Iron Sucrose 100 mg/Sodium Chloride 55 ml @ 200 mls/hr BEDTIME IV 01/01/20 21:00 01/10/20 21:17 01/01/20 20:58 Levothyroxine Sodium (Synthroid) 100 mcg Q24H ORAL 01/02/20 06:30 02/01/20 06:29 01/02/20 05:48 Levothyroxine Sodium (Synthroid) 125 mcg DAILY@0630 ORAL 01/02/20 06:30 02/01/20 06:29 01/02/20 05:48 Nifedipine (Procardia XL) 60 mg DAILY ORAL 01/03/20 09:00 02/02/20 08:59 Ondansetron HCl (Zofran) 4 mg Q6H PRN IVP Nausea & Vomiting 12/31/19 18:45 01/30/20 18:44 Pantoprazole (Protonix) 40 mg EVERY 12 HOURS ORAL 01/01/20 21:00 01/31/20 20:59 01/02/20 08:46 Polyethylene Glycol (Miralax) 17 gm HSPRN PRN ORAL Constipation 12/31/19 18:45 01/30/20 18:44 Zolpidem Tartrate (Ambien) 5 mg HSPRN PRN ORAL Insomnia 12/31/19 18:45 01/07/20 18:44 Allergies: Coded Allergies: No Known Allergies (Unverified , 12/31/19) ROS Limited/Unobtainable: No Constitutional: Reports: no symptoms HEENT: Reports: no symptoms Cardiovascular: Reports: no symptoms Respiratory: Reports: no symptoms Gastrointestinal/Abdominal: Reports: no symptoms Genitourinary: Reports: no symptoms Neurologic/Psychiatric: Reports: no symptoms Subjective 69 YO F admitted with fatigue, now severe anemia. Cover for Int Jose-Dr Gaspar Objective Last Vital Signs Date Time Temp Pulse Resp B/P (MAP) Pulse Ox O2 Delivery O2 Flow Rate FiO2 01/02/20 16:30 97.5 65 17 153/70 (97) 99 01/02/20 11:42 Room Air Laboratory Tests Test 01/02/20 05:30 White Blood Count 7.5 K/UL (4.8-10.8) Red Blood Count 3.95 M/UL (4.20-5.40) L Hemoglobin 9.2 G/DL (12.0-16.0) L Hematocrit 29.2 % (37.0-47.0) L Mean Corpuscular Volume 74 FL (80-99) L Mean Corpuscular Hemoglobin 23.3 PG (27.0-31.0) L Mean Corpuscular Hemoglobin Concent 31.5 G/DL (32.0-36.0) L Red Cell Distribution Width 15.8 % (11.6-14.8) H Platelet Count 265 K/UL (150-450) Mean Platelet Volume 5.5 FL (6.5-10.1) L Neutrophils (%) (Auto) 62.3 % (45.0-75.0) Lymphocytes (%) (Auto) 22.5 % (20.0-45.0) Monocytes (%) (Auto) 8.1 % (1.0-10.0) Eosinophils (%) (Auto) 6.2 % (0.0-3.0) H Basophils (%) (Auto) 0.9 % (0.0-2.0) Erythrocyte Sedimentation Rate 112 MM/HR (0-30) H Sodium Level 142 MMOL/L (136-145) Potassium Level 5.2 MMOL/L (3.5-5.1) H Chloride Level 108 MMOL/L (98-107) H Carbon Dioxide Level 18 MMOL/L (21-32) L Anion Gap 16 mmol/L (5-15) H Blood Urea Nitrogen 86 mg/dL (7-18) H Creatinine 4.0 MG/DL (0.55-1.30) H Estimat Glomerular Filtration Rate 13.5 mL/min (>60) Glucose Level 85 MG/DL (74-106) Calcium Level 8.9 MG/DL (8.5-10.1) Phosphorus Level 4.6 MG/DL (2.5-4.9) Magnesium Level 1.8 MG/DL (1.8-2.4) Total Bilirubin 0.2 MG/DL (0.2-1.0) Aspartate Amino Transf (AST/SGOT) 16 U/L (15-37) Alanine Aminotransferase (ALT/SGPT) 19 U/L (12-78) Alkaline Phosphatase 105 U/L (46-116) C-Reactive Protein, Quantitative 4.6 mg/dL (0.00-0.90) H Total Protein 7.7 G/DL (6.4-8.2) Albumin 3.0 G/DL (3.4-5.0) L Globulin 4.7 g/dL Albumin/Globulin Ratio 0.6 (1.0-2.7) L Objective PHYSICAL EXAMINATION: GENERAL: The patient is awake, responsive, and in no acute distress. HEAD AND NECK: Pupils are equal and reactive to light. Extraocular movements intact. NECK: Supple. No JVD. LUNGS: Good air entry. No wheeze or rales. HEART: S1, S2. Regular rhythm. No murmur or gallops. ABDOMEN: Soft, nondistended, and nontender. Positive bowel sounds. EXTREMITIES: No cyanosis, clubbing, or edema. NEUROLOGIC: Cranial nerves II through XII grossly intact. RECTAL: Refused and deferred. GENITOURINARY: Refused and deferred. PSYCHIATRIC: Mood and affect is intact. Assessment/Plan Assessment/Plan ASSESSMENT: 1. Severe symptomatic anemia, possible due to anemia of chronic disease; however, cannot rule out GI etiology. 2. Hypothyroidism. 3. Folic acid deficiency. 4. Hypertension. 5. Coronary artery disease. 6. Acute kidney injury on chronic renal insufficiency. 7. History of breast cancer. PLAN: 1. Admit the patient to medical floor. We will follow up with the 2. Code status is Full Code. 3. S/P transfusion 1 unit PRBC on 12/31/19 4. Nephrology =Dr Springer 5. Pulmonary consultation=Dr Gil. 6. DVT prophylaxis, SCD. Josué Jenkins MD Jan 02, 2020 19:40
[2020-01-03] VITALS: BP 135/76
[2020-01-03 04:00] VITALS: BP 130/61
[2020-01-03] MEDS: Levothyroxine 125mcg tab ORAL SCH (05:51)
[2020-01-03 06:22] LABS: HEMATOCRIT 24.2 % (37.0-47.0); HEMOGLOBIN 7.7 G/DL (12.0-16.0); MEAN CORPUSCULAR VOLUME 73 FL (80-99); PLATELET COUNT 290 K/UL (150-450); RED BLOOD COUNT 3.31 M/UL (4.20-5.40); RED CELL DISTRIBUTION WIDTH 14.9 % (11.6-14.8)
[2020-01-03 07:01] LABS: ALANINE AMINOTRANSFERASE 13 U/L (12-78); ALBUMIN 2.8 G/DL (3.4-5.0); ALBUMIN/GLOBULIN RATIO 0.6 (1.0-2.7); ALKALINE PHOSPHATASE 94 U/L (46-116); ANION GAP 13 mmol/L (5-15); ASPARTATE AMINO TRANSFERASE 14 U/L (15-37); BILIRUBIN,TOTAL 0.2 MG/DL (0.2-1.0); BLOOD UREA NITROGEN 91 mg/dL (7-18); CALCIUM 9.2 MG/DL (8.5-10.1); CARBON DIOXIDE 21 MMOL/L (21-32); CHLORIDE 109 MMOL/L (98-107); CREATININE 4.1 MG/DL (0.55-1.30); PHOSPHORUS 4.9 MG/DL (2.5-4.9); POTASSIUM 4.1 MMOL/L (3.5-5.1); SODIUM 143 MMOL/L (136-145)
[2020-01-03 08:00] VITALS: BP 132/82
[2020-01-03] MEDS: Docusate 100mg cap ORAL SCH ×3 (08:49→13:00)
--- NOTE | 2020-01-03 08:55 | Pulmonology Progress Note ---
Assessment/Plan Assessment/Plan ASSESSMENT symptomatic anemia Anemia of iron deficiency ? GI bleeding Acute kidney injury on chronic kidney disease Hypertension Hypothyroidism with elevated TSH Coronary artery disease PLAN OF CARE MS floor S/P IV fluids S/P 1 unit PRBC stool OB+, CEA pending anemia work-up c/w YOSEF , started on Venofer folate replacement initiated CT abdomen /pelvis GI eval Bowel regimen GI prophylaxis Venous duplex bilateral lower extremity, SCDs IF negative BP management is a CCB and hydralazine as needed for BP start spikes Elevated TSH level free T3, levothyroxine dose increased repeat TFT in 1 month Renal ultrasound with medical renal disease Monitor renal parameters lites, correct lites as needed avoid nephrotoxic Nephro on board Supportive care case discussed and evaluated by supervising physician Subjective Allergies: Coded Allergies: No Known Allergies (Unverified , 12/31/19) Subjective s/p 1 u PRBC Hgb down again to 7.7 stool OB + pulse ox stable , no signs of resp distress Objective Last 24 Hour Vital Signs Date Time Temp Pulse Resp B/P (MAP) Pulse Ox O2 Delivery O2 Flow Rate FiO2 01/03/20 08:52 69 132/82 01/03/20 08:00 98.5 69 18 132/82 (99) 96 01/03/20 04:00 96.7 81 18 130/61 (84) 99 01/03/20 00:00 99.0 77 20 135/76 (95) 98 01/02/20 21:00 Room Air 01/02/20 20:00 97.7 73 18 142/55 (84) 99 01/02/20 16:30 97.5 65 17 153/70 (97) 99 01/02/20 15:31 68 153/69 01/02/20 15:25 68 153/69 (97) 01/02/20 13:01 174/82 01/02/20 12:00 98.2 64 18 174/82 (112) 100 01/02/20 11:42 Room Air Intake and Output 01/02/20 01/03/20 19:00 07:00 Intake Total 55 ml Balance 55 ml Intake IV Total 55 ml Objective General Appearance: no acute distress HEENT: normocephalic, atraumatic, anicteric Respiratory/Chest: lungs clear, normal breath sounds, no respiratory distress Cardiovascular: normal rate Abdomen: soft, non tender Extremities: no edema, pedal pulses normal Neurologic/Psychiatric: alert, responsive Musculoskeletal: normal muscle bulk Laboratory Tests 01/03/20 05:30: White Blood Count 7.0, Red Blood Count 3.31L, Hemoglobin 7.7L, Hematocrit 24.2L , Mean Corpuscular Volume 73L, Mean Corpuscular Hemoglobin 23.4L, Mean Corpuscular Hemoglobin Concent 32.0, Red Cell Distribution Width 14.9H, Platelet Count 290, Mean Platelet Volume 5.0L, Neutrophils (%) (Auto) , Lymphocytes (%) (Auto) , Monocytes (%) (Auto) , Eosinophils (%) (Auto) , Basophils (%) (Auto) , Neutrophils % (Manual) [Pending], Lymphocytes % (Manual) [Pending], Platelet Estimate [Pending], Platelet Morphology [Pending], Sodium Level 143, Potassium Level 4.1, Chloride Level 109H, Carbon Dioxide Level 21, Anion Gap 13, Blood Urea Nitrogen 91H, Creatinine 4.1H, Estimat Glomerular Filtration Rate 13.1, Glucose Level 95, Uric Acid 8.6H, Calcium Level 9.2, Phosphorus Level 4.9, Magnesium Level 1.9, Total Bilirubin 0.2, Aspartate Amino Transf (AST/SGOT) 14L, Alanine Aminotransferase (ALT/SGPT) 13, Alkaline Phosphatase 94, C-Reactive Protein, Quantitative 4.9H, Pro-B-Type Natriuretic Peptide 704H, Total Protein 7.7, Albumin 2.8L, Globulin 4.9, Albumin/Globulin Ratio 0.6L Current Medications Medications (Trade) Dose Ordered Sig/Liam Route PRN Reason Start Time Stop Time Status Last Admin Dose Admin Acetaminophen (Tylenol) 650 mg Q4H PRN ORAL fever 12/31/19 18:45 01/30/20 18:44 Barium Sulfate (Readi-Cat 2) 450 ml NOW PRN ORAL Radiology Procedure 01/01/20 12:30 01/03/20 12:26 Dextrose (Dextrose 50%) 25 ml Q30M PRN IV Hypoglycemia 12/31/19 18:45 01/30/20 18:44 Dextrose (Dextrose 50%) 50 ml Q30M PRN IV Hypoglycemia 12/31/19 18:45 01/30/20 18:44 Docusate Sodium (Colace) 100 mg THREE TIMES A DAY ORAL 01/01/20 13:00 3/15/20 12:59 Docusate Sodium (Colace) 100 mg TID ORAL 01/02/20 18:00 02/01/20 17:59 Folic Acid (Folate) 2 mg DAILY ORAL 01/01/20 10:15 01/31/20 10:14 01/03/20 08:49 Hydralazine HCl (Apresoline) 25 mg Q4H PRN ORAL bp over 160 syst 01/01/20 10:15 01/31/20 10:14 01/02/20 13:01 Iron Sucrose 100 mg/Sodium Chloride 55 ml @ 200 mls/hr BEDTIME IV 01/01/20 21:00 01/10/20 21:17 01/02/20 20:43 Levothyroxine Sodium (Synthroid) 100 mcg Q24H ORAL 01/02/20 06:30 02/01/20 06:29 01/03/20 05:51 Levothyroxine Sodium (Synthroid) 125 mcg DAILY@0630 ORAL 01/02/20 06:30 02/01/20 06:29 01/03/20 05:51 Nifedipine (Procardia XL) 60 mg DAILY ORAL 01/03/20 09:00 02/02/20 08:59 01/03/20 08:52 Ondansetron HCl (Zofran) 4 mg Q6H PRN IVP Nausea & Vomiting 12/31/19 18:45 01/30/20 18:44 Pantoprazole (Protonix) 40 mg EVERY 12 HOURS ORAL 01/01/20 21:00 01/31/20 20:59 01/03/20 08:49 Polyethylene Glycol (Miralax) 17 gm HSPRN PRN ORAL Constipation 12/31/19 18:45 01/30/20 18:44 Zolpidem Tartrate (Ambien) 5 mg HSPRN PRN ORAL Insomnia 12/31/19 18:45 01/07/20 18:44 April Díaz [employer] Jan 03, 2020 08:55
[2020-01-03] MEDS ORDERED: Albuterol/Ipratropium 3ml neb HHN PRN ×2 (10:45→18:15)
--- NOTE | 2020-01-03 10:47 | Nephrology Progress Note ---
Assessment/Plan Problem List: (1) Acute on chronic renal insufficiency (2) History of hypertension (3) Anemia in chronic kidney disease (CKD) (4) Hypertensive kidney disease (5) Breast cancer Assessment Acute renal failure- ? CKD underlying- Severe Anemia- Low MCV HypoThyroid h/o Breast Ca . Plan Iron panel- Low Iron IV Iron Allopurinol EPO SQ Keep BP in check Avoid Nephrotoxics 2D echo 60% folic acid Kidney TALYA Medical renal disease. Left kidney somewhat limited in evaluation. 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 CT may be confirmatory. Subjective ROS Limited/Unobtainable: No Constitutional: Reports: malaise Objective Objective Last 24 Hour Vital Signs Date Time Temp Pulse Resp B/P (MAP) Pulse Ox O2 Delivery O2 Flow Rate FiO2 01/03/20 08:52 69 132/82 01/03/20 08:00 98.5 69 18 132/82 (99) 96 01/03/20 04:00 96.7 81 18 130/61 (84) 99 01/03/20 00:00 99.0 77 20 135/76 (95) 98 01/02/20 21:00 Room Air 01/02/20 20:00 97.7 73 18 142/55 (84) 99 01/02/20 16:30 97.5 65 17 153/70 (97) 99 01/02/20 15:31 68 153/69 01/02/20 15:25 68 153/69 (97) 01/02/20 13:01 174/82 01/02/20 12:00 98.2 64 18 174/82 (112) 100 01/02/20 11:42 Room Air Intake and Output 01/02/20 01/03/20 19:00 07:00 Intake Total 55 ml Balance 55 ml IV Total 55 ml Laboratory Tests 01/03/20 05:30: White Blood Count 7.0, Red Blood Count 3.31L, Hemoglobin 7.7L, Hematocrit 24.2L , Mean Corpuscular Volume 73L, Mean Corpuscular Hemoglobin 23.4L, Mean Corpuscular Hemoglobin Concent 32.0, Red Cell Distribution Width 14.9H, Platelet Count 290, Mean Platelet Volume 5.0L, Neutrophils (%) (Auto) , Lymphocytes (%) (Auto) , Monocytes (%) (Auto) , Eosinophils (%) (Auto) , Basophils (%) (Auto) , Differential Total Cells Counted 100, Neutrophils % ( Manual) 66, Lymphocytes % (Manual) 22, Monocytes % (Manual) 7, Eosinophils % ( Manual) 5H, Basophils % (Manual) 0, Band Neutrophils 0, Platelet Estimate Adequate, Platelet Morphology Normal, Hypochromasia 3+, Anisocytosis 1+, Microcytosis 2+, Sodium Level 143, Potassium Level 4.1, Chloride Level 109H, Carbon Dioxide Level 21, Anion Gap 13, Blood Urea Nitrogen 91H, Creatinine 4.1H , Estimat Glomerular Filtration Rate 13.1, Glucose Level 95, Uric Acid 8.6H, Calcium Level 9.2, Phosphorus Level 4.9, Magnesium Level 1.9, Total Bilirubin 0.2, Aspartate Amino Transf (AST/SGOT) 14L, Alanine Aminotransferase (ALT/SGPT) 13, Alkaline Phosphatase 94, C-Reactive Protein, Quantitative 4.9H, Pro-B-Type Natriuretic Peptide 704H, Total Protein 7.7, Albumin 2.8L, Globulin 4.9, Albumin /Globulin Ratio 0.6L Height (Feet): 5 Height (Inches): 4.00 Weight (Pounds): 150 General Appearance: no apparent distress Objective no change Iggy Springer MD Jan 03, 2020 10:47
[2020-01-03 12:00] VITALS: BP 151/76
[2020-01-03] MEDS ORDERED: NS 275ml ONE (13:43)
[2020-01-03] MEDS ORDERED: Tubing IV Secondary IV ONE (13:43)
[2020-01-03 15:15] VITALS: BP 145/64
--- NOTE | 2020-01-03 16:22 | Internal Med Progress Note ---
Subjective Date of Service: Jan 03, 2020 Physician Name Josué Jenkins Attending Physician Avila Gaspar MD Current Medications Medications (Trade) Dose Ordered Sig/Liam Route PRN Reason Start Time Stop Time Status Last Admin Dose Admin Acetaminophen (Tylenol) 650 mg Q4H PRN ORAL fever 12/31/19 18:45 01/30/20 18:44 Albuterol/ Ipratropium (Albuterol/ Ipratropium) 3 ml Q4H PRN HHN Shortness of Breath 01/03/20 10:45 01/08/20 10:44 Allopurinol (allopurinoL) 300 mg DAILY ORAL 01/04/20 09:00 02/03/20 08:59 Dextrose (Dextrose 50%) 25 ml Q30M PRN IV Hypoglycemia 12/31/19 18:45 01/30/20 18:44 Dextrose (Dextrose 50%) 50 ml Q30M PRN IV Hypoglycemia 12/31/19 18:45 01/30/20 18:44 Docusate Sodium (Colace) 100 mg THREE TIMES A DAY ORAL 01/01/20 13:00 01/31/20 12:59 Epoetin Jose Ramon (Epoetin Jose Ramon-EPBX(NON ESRD)) 10,000 unit SAT-SAT-SAT SUBQ 01/04/20 21:00 02/03/20 20:59 Folic Acid (Folate) 2 mg DAILY ORAL 01/01/20 10:15 01/31/20 10:14 01/03/20 08:49 Hydralazine HCl (Apresoline) 25 mg Q4H PRN ORAL bp over 160 syst 01/01/20 10:15 01/31/20 10:14 01/02/20 13:01 Iron Sucrose 100 mg/Sodium Chloride 55 ml @ 200 mls/hr BEDTIME IV 01/01/20 21:00 01/10/20 21:17 01/02/20 20:43 Levothyroxine Sodium (Synthroid) 100 mcg Q24H ORAL 01/02/20 06:30 02/01/20 06:29 01/03/20 05:51 Levothyroxine Sodium (Synthroid) 125 mcg DAILY@0630 ORAL 01/02/20 06:30 02/01/20 06:29 01/03/20 05:51 Nifedipine (Procardia XL) 60 mg DAILY ORAL 01/03/20 09:00 02/02/20 08:59 01/03/20 08:52 Ondansetron HCl (Zofran) 4 mg Q6H PRN IVP Nausea & Vomiting 12/31/19 18:45 01/30/20 18:44 Pantoprazole (Protonix) 40 mg EVERY 12 HOURS ORAL 01/01/20 21:00 01/31/20 20:59 01/03/20 08:49 Polyethylene Glycol (Miralax) 17 gm HSPRN PRN ORAL Constipation 12/31/19 18:45 01/30/20 18:44 Zolpidem Tartrate (Ambien) 5 mg HSPRN PRN ORAL Insomnia 12/31/19 18:45 01/07/20 18:44 Allergies: Coded Allergies: No Known Allergies (Unverified , 12/31/19) ROS Limited/Unobtainable: No Constitutional: Reports: weakness HEENT: Reports: no symptoms Cardiovascular: Reports: no symptoms Respiratory: Reports: no symptoms Gastrointestinal/Abdominal: Reports: no symptoms Genitourinary: Reports: no symptoms Neurologic/Psychiatric: Reports: no symptoms Subjective 69 YO F admitted with fatigue, now severe anemia. Cover for Int Med-Dr Gaspar Objective Last Vital Signs Date Time Temp Pulse Resp B/P (MAP) Pulse Ox O2 Delivery O2 Flow Rate FiO2 01/03/20 15:15 99.3 80 18 145/64 (91) 95 01/03/20 09:00 Room Air Laboratory Tests Test 01/03/20 05:30 01/03/20 10:55 White Blood Count 7.0 K/UL (4.8-10.8) Red Blood Count 3.31 M/UL (4.20-5.40) L Hemoglobin 7.7 G/DL (12.0-16.0) L Hematocrit 24.2 % (37.0-47.0) L Mean Corpuscular Volume 73 FL (80-99) L Mean Corpuscular Hemoglobin 23.4 PG (27.0-31.0) L Mean Corpuscular Hemoglobin Concent 32.0 G/DL (32.0-36.0) Red Cell Distribution Width 14.9 % (11.6-14.8) H Platelet Count 290 K/UL (150-450) Mean Platelet Volume 5.0 FL (6.5-10.1) L Neutrophils (%) (Auto) % (45.0-75.0) Lymphocytes (%) (Auto) % (20.0-45.0) Monocytes (%) (Auto) % (1.0-10.0) Eosinophils (%) (Auto) % (0.0-3.0) Basophils (%) (Auto) % (0.0-2.0) Differential Total Cells Counted 100 Neutrophils % (Manual) 66 % (45-75) Lymphocytes % (Manual) 22 % (20-45) Monocytes % (Manual) 7 % (1-10) Eosinophils % (Manual) 5 % (0-3) H Basophils % (Manual) 0 % (0-2) Band Neutrophils 0 % (0-8) Platelet Estimate Adequate Platelet Morphology Normal Hypochromasia 3+ Anisocytosis 1+ Microcytosis 2+ Sodium Level 143 MMOL/L (136-145) Potassium Level 4.1 MMOL/L (3.5-5.1) Chloride Level 109 MMOL/L (98-107) H Carbon Dioxide Level 21 MMOL/L (21-32) Anion Gap 13 mmol/L (5-15) Blood Urea Nitrogen 91 mg/dL (7-18) H Creatinine 4.1 MG/DL (0.55-1.30) H Estimat Glomerular Filtration Rate 13.1 mL/min (>60) Glucose Level 95 MG/DL (74-106) Uric Acid 8.6 MG/DL (2.6-7.2) H Calcium Level 9.2 MG/DL (8.5-10.1) Phosphorus Level 4.9 MG/DL (2.5-4.9) Magnesium Level 1.9 MG/DL (1.8-2.4) Total Bilirubin 0.2 MG/DL (0.2-1.0) Aspartate Amino Transf (AST/SGOT) 14 U/L (15-37) L Alanine Aminotransferase (ALT/SGPT) 13 U/L (12-78) Alkaline Phosphatase 94 U/L (46-116) C-Reactive Protein, Quantitative 4.9 mg/dL (0.00-0.90) H Pro-B-Type Natriuretic Peptide 704 pg/mL (0-125) H Total Protein 7.7 G/DL (6.4-8.2) Albumin 2.8 G/DL (3.4-5.0) L Globulin 4.9 g/dL Albumin/Globulin Ratio 0.6 (1.0-2.7) L Troponin I 0.010 ng/mL (0.000-0.056) Intake and Output 01/02/20 01/03/20 19:00 07:00 Intake Total 55 ml Balance 55 ml IV Total 55 ml Objective PHYSICAL EXAMINATION: GENERAL: The patient is awake, responsive, and in no acute distress. HEAD AND NECK: Pupils are equal and reactive to light. Extraocular movements intact. NECK: Supple. No JVD. LUNGS: Good air entry. No wheeze or rales. HEART: S1, S2. Regular rhythm. No murmur or gallops. ABDOMEN: Soft, nondistended, and nontender. Positive bowel sounds. EXTREMITIES: No cyanosis, clubbing, or edema. NEUROLOGIC: Cranial nerves II through XII grossly intact. RECTAL: Refused and deferred. GENITOURINARY: Refused and deferred. PSYCHIATRIC: Mood and affect is intact. Assessment/Plan Assessment/Plan ASSESSMENT: 1. Severe symptomatic anemia, possible due to anemia of chronic disease; however, cannot rule out GI etiology. 2. Hypothyroidism. 3. Folic acid deficiency. 4. Hypertension. 5. Coronary artery disease. 6. Acute kidney injury on chronic renal insufficiency. 7. History of breast cancer. PLAN: 1. Admit the patient to medical floor. We will follow up with the 2. Code status is Full Code. 3. S/P transfusion 1 unit PRBC on 12/31/19 4. Nephrology =Dr Springer 5. Pulmonary consultation=Dr Gil. 6. DVT prophylaxis, SCD. 7. S/P transfusion 1 unit PRBC 12/31/19; transfuse 1 unit PRBC today 01/03/20 8. Anemia workup-GI=Dr Garcia. Stool for occult blood Josué Jenkins MD Jan 03, 2020 16:21
[2020-01-03] MEDS ORDERED: Miralax 17gm pkt ORAL PRN (18:15)
[2020-01-03] MEDS ORDERED: HydrALAZINE 25mg tab ORAL PRN (18:15)
[2020-01-03] MEDS ORDERED: Zolpidem 5mg tab ORAL PRN (18:45)
[2020-01-03 20:00] VITALS: BP 158/77
[2020-01-04] VITALS (7 sets, daily range): BP systolic 149–172; BP diastolic 70–86
[2020-01-04] MEDS: Levothyroxine 125mcg tab ORAL SCH (06:03)
[2020-01-04 07:53] LABS: EOSINOPHILS % (AUTO) 4.4 % (0.0-3.0); HEMATOCRIT 27.6 % (37.0-47.0); HEMOGLOBIN 9.1 G/DL (12.0-16.0); LYMPHOCYTES % (AUTO) 23.1 % (20.0-45.0); MEAN CORPUSCULAR VOLUME 75 FL (80-99); MONOCYTES % (AUTO) 8.5 % (1.0-10.0); NEUTROPHILS % (AUTO) 63.1 % (45.0-75.0); PLATELET COUNT 279 K/UL (150-450); RED BLOOD COUNT 3.67 M/UL (4.20-5.40); WHITE BLOOD COUNT 8.2 K/UL (4.8-10.8)
[2020-01-04 08:21] LABS: ALANINE AMINOTRANSFERASE 14 U/L (12-78); ALBUMIN 2.8 G/DL (3.4-5.0); ALBUMIN/GLOBULIN RATIO 0.5 (1.0-2.7); ALKALINE PHOSPHATASE 94 U/L (46-116); ANION GAP 13 mmol/L (5-15); ASPARTATE AMINO TRANSFERASE 17 U/L (15-37); BILIRUBIN,TOTAL 0.4 MG/DL (0.2-1.0); BLOOD UREA NITROGEN 88 mg/dL (7-18); CALCIUM 9.4 MG/DL (8.5-10.1); CARBON DIOXIDE 22 MMOL/L (21-32); CHLORIDE 109 MMOL/L (98-107); CREATININE 4.1 MG/DL (0.55-1.30); POTASSIUM 4.1 MMOL/L (3.5-5.1); SODIUM 143 MMOL/L (136-145)
[2020-01-04] MEDS: Docusate 100mg cap ORAL SCH ×3 (08:37→18:00)
[2020-01-04 08:44] LABS: PHOSPHORUS 4.5 MG/DL (2.5-4.9)
--- NOTE | 2020-01-04 08:47 | Diagnostic Imaging Report ---
Indication: Chest pain Technique: One view of the chest Comparison: 01/01/2020 Findings: Patient's chin obscures the upper mediastinum. The heart is enlarged. The aorta is tortuous ectatic and calcified. The lungs and pleural spaces are clear. There are surgical clips in the right axilla. There is no significant change Impression: Somewhat limited exam. No acute process
--- NOTE | 2020-01-04 10:02 | Pulmonology Progress Note ---
Assessment/Plan Assessment/Plan ASSESSMENT symptomatic anemia Anemia of iron deficiency ? GI bleeding /stool OB positive Acute kidney injury on chronic kidney disease Hypertension Hypothyroidism with elevated TSH Coronary artery disease CP, likely of MS oriigin PLAN OF CARE tele s/p IV fluids s/p 2 unit PRBC stool OB+, another stool OB pending CEA pending anemia work-up c/w YOSEF , started on Venofer folate replacement initiated CT abdomen /pelvis this am GI eval pending for this am bowel regimen GI prophylaxis venous duplex bilateral lower extremity, SCDs if negative BP management i with CCB and hydralazine prn for BP start spikes elevated TSH level free T3, levothyroxine dose increased repeat TFT in 1 month renal ultrasound with medical renal disease monitor renal parameters lites, correct lites as needed avoid nephrotoxic nephro on board supportive care c/o CP 01/03 afternoon troponin negative, ECG with SR CP resolved, no changes on tele, CP likely of MS origin ECHO with pEF will get cardio eval likely will need GI procedure and cardio clearance case discussed and evaluated by supervising physician Subjective Allergies: Coded Allergies: No Known Allergies (Unverified , 12/31/19) Subjective s/p 1 u PRBC Hgb down again to 7.7 stool OB + another blood transfusion 01/03, HH up pulse ox stable , no signs of resp distress 01/03 afternoon c/o CP, troponin negatuve ECG SR, pt reported having this pain prior intermittently Objective Last 24 Hour Vital Signs Date Time Temp Pulse Resp B/P (MAP) Pulse Ox O2 Delivery O2 Flow Rate FiO2 01/04/20 09:00 Room Air 01/04/20 08:37 71 172/79 01/04/20 08:00 85 01/04/20 08:00 97.3 71 18 172/79 (110) 98 01/04/20 04:00 98.9 76 18 156/74 (101) 96 01/04/20 04:00 71 01/04/20 00:00 79 01/04/20 00:00 97.9 80 18 156/86 (109) 98 01/03/20 21:00 Room Air 01/03/20 20:00 78 01/03/20 20:00 99.6 78 17 158/77 (104) 100 01/03/20 16:23 76 01/03/20 15:15 99.3 80 18 145/64 (91) 95 01/03/20 12:00 98.2 69 21 151/76 (101) 99 Intake and Output 01/03/20 01/04/20 19:00 07:00 Intake Total 120 ml 250 ml Balance 120 ml 250 ml Intake Oral 120 ml Blood Product 250 ml # Voids 2 # Bowel Movements 1 Objective General Appearance: no acute distress HEENT: normocephalic, atraumatic, anicteric Respiratory/Chest: lungs clear, normal breath sounds, no respiratory distress Cardiovascular: normal rate Abdomen: soft, non tender Extremities: no edema, pedal pulses normal Neurologic/Psychiatric: alert, responsive Musculoskeletal: normal muscle bulk Laboratory Tests 01/03/20 10:55: Troponin I 0.010 01/03/20 22:18: Stool Occult Blood [Pending] 01/04/20 06:49: White Blood Count 8.2, Red Blood Count 3.67L, Hemoglobin 9.1L, Hematocrit 27.6L , Mean Corpuscular Volume 75L, Mean Corpuscular Hemoglobin 24.7L, Mean Corpuscular Hemoglobin Concent 32.8, Red Cell Distribution Width 17.0H, Platelet Count 279, Mean Platelet Volume 5.5L, Neutrophils (%) (Auto) 63.1, Lymphocytes (%) (Auto) 23.1, Monocytes (%) (Auto) 8.5, Eosinophils (%) (Auto) 4.4H, Basophils (%) (Auto) 1.0, Sodium Level 143, Potassium Level 4.1, Chloride Level 109H, Carbon Dioxide Level 22, Anion Gap 13, Blood Urea Nitrogen 88H, Creatinine 4.1H, Estimat Glomerular Filtration Rate 13.1, Glucose Level 89, Uric Acid 8.4H, Calcium Level 9.4, Phosphorus Level 4.5, Magnesium Level 1.9, Total Bilirubin 0.4, Aspartate Amino Transf (AST/SGOT) 17, Alanine Aminotransferase (ALT/SGPT) 14, Alkaline Phosphatase 94, Total Protein 8.0, Albumin 2.8L, Globulin 5.2, Albumin/Globulin Ratio 0.5L Current Medications Medications (Trade) Dose Ordered Sig/Liam Route PRN Reason Start Time Stop Time Status Last Admin Dose Admin Acetaminophen (Tylenol) 650 mg Q4H PRN ORAL fever 01/03/20 18:15 01/30/20 18:14 Albuterol/ Ipratropium (Albuterol/ Ipratropium) 3 ml Q4H PRN HHN Shortness of Breath 01/03/20 18:15 01/08/20 18:14 Allopurinol (allopurinoL) 300 mg DAILY ORAL 01/04/20 09:00 02/03/20 08:59 01/04/20 08:37 Dextrose (Dextrose 50%) 25 ml Q30M PRN IV Hypoglycemia 01/03/20 18:15 01/30/20 18:44 Dextrose (Dextrose 50%) 50 ml Q30M PRN IV Hypoglycemia 01/03/20 18:15 01/30/20 18:44 Docusate Sodium (Colace) 100 mg THREE TIMES A DAY ORAL 01/04/20 09:00 01/31/20 12:59 01/04/20 08:37 Epoetin Jose Ramon (Epoetin Jose Ramon-EPBX(NON ESRD)) 10,000 unit SAT-SAT-SAT SUBQ 01/04/20 21:00 02/03/20 20:59 Folic Acid (Folate) 2 mg DAILY ORAL 01/04/20 09:00 01/31/20 10:14 01/04/20 08:37 Hydralazine HCl (Apresoline) 25 mg Q4H PRN ORAL bp over 160 syst 01/03/20 18:15 01/31/20 10:14 Iron Sucrose 100 mg/Sodium Chloride 55 ml @ 200 mls/hr BEDTIME IV 01/03/20 21:00 01/10/20 21:17 01/03/20 21:12 Levothyroxine Sodium (Synthroid) 100 mcg Q24H ORAL 01/04/20 06:30 02/01/20 06:29 01/04/20 06:04 Levothyroxine Sodium (Synthroid) 125 mcg DAILY@0630 ORAL 01/04/20 06:30 02/01/20 06:29 01/04/20 06:03 Nifedipine (Procardia XL) 60 mg DAILY ORAL 01/04/20 09:00 02/02/20 08:59 01/04/20 08:37 Ondansetron HCl (Zofran) 4 mg Q6H PRN IVP Nausea & Vomiting 01/03/20 18:15 01/30/20 18:14 Pantoprazole (Protonix) 40 mg EVERY 12 HOURS ORAL 01/03/20 21:00 01/31/20 20:59 01/04/20 08:37 Polyethylene Glycol (Miralax) 17 gm HSPRN PRN ORAL Constipation 01/03/20 18:15 01/30/20 18:14 Zolpidem Tartrate (Ambien) 5 mg HSPRN PRN ORAL Insomnia 01/03/20 18:45 01/07/20 18:44 April Díaz [employer] Jan 04, 2020 10:02
--- NOTE | 2020-01-04 11:53 | Diagnostic Imaging Report ---
Indication: Abdominal pain Technique: Spiral acquisitions obtained through the abdomen and pelvis. Patient given oral contrast. No IV contrast utilized, per referring physician request.. Multiplanar reconstructions were generated. Total dose length product for 91 mGycm. CTDIvol(s) 10 mGy. Dose reduction achieved using automated exposure control Comparison: No comparison CT scans. Reference made to renal sonogram 01/01/2019 Findings: Ingested contrast has traversed the entirety of the small bowel, reaches the cecum and proximal ascending colon. Gas bubbles are seen circumferentially around the periphery of the colonic lumen, could indicate colonic pneumatosis but more likely represent pseudopneumatosis secondary to gas trapped between the thecal colon and in the colon wall. There is no evidence of portal mesenteric venous gas. The appendix is not definitely identified, but no findings to suggest acute appendicitis are evident. No evidence of colonic diverticulosis or diverticulitis. There is a small sliding-type hiatal hernia. The remainder of the stomach is unremarkable. The duodenum is unremarkable. No free or loculated intraperitoneal gas or fluid is evident. Lack of IV contrast limits assessment of the solid organs. The liver is grossly unremarkable. The gallbladder is distended, filled with stones. No biliary ductal dilatation. The pancreas is unremarkable. The spleen is unremarkable, although there is a small splenic hilar arterial aneurysm which measures 9 mm in diameter. The adrenals are unremarkable. 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 Left kidney is unremarkable; a few calcifications in the renal sinus are probably arterial. No definite renal or ureteral calculi, hydronephrosis, or hydroureter. No retroperitoneal or mesenteric mass or adenopathy. The uterus is absent. The bladder is unremarkable. No pelvic mass or adenopathy. Included lung bases demonstrate some posterior dependent atelectatic changes. The heart is mildly enlarged. The bones are unremarkable except for degenerative changes of the lumbosacral junction. Impression: Circumferential gas within the cecum, appearance of which is somewhat suggestive of pneumatosis. Suspect, however, that this is more likely so-called pseudopneumatosis due to the presence of gas between the fecal column and the colon wall. There is no evidence of portal venous or mesenteric venous gas. Correlate with clinical findings. This finding was discussed by phone with Dr. 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
--- NOTE | 2020-01-04 12:06 | Nephrology Progress Note ---
Assessment/Plan Problem List: (1) Acute on chronic renal insufficiency (2) History of hypertension (3) Anemia in chronic kidney disease (CKD) (4) Hypertensive kidney disease (5) Breast cancer Assessment Acute renal failure- ? CKD underlying- Severe Anemia- Low MCV HypoThyroid h/o Breast Ca . Plan Cr stable Iron panel- Low Iron IV Iron Allopurinol EPO SQ Keep BP in check Avoid Nephrotoxics 2D echo 60% folic acid Kidney [facility]AL[facility] Medical renal disease. Left kidney somewhat limited in evaluation. 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 CT may be confirmatory. Subjective ROS Limited/Unobtainable: No Constitutional: Reports: malaise, weakness Objective Objective Last 24 Hour Vital Signs Date Time Temp Pulse Resp B/P (MAP) Pulse Ox O2 Delivery O2 Flow Rate FiO2 01/04/20 09:00 Room Air 01/04/20 08:37 71 172/79 01/04/20 08:00 85 01/04/20 08:00 97.3 71 18 172/79 (110) 98 01/04/20 04:00 98.9 76 18 156/74 (101) 96 01/04/20 04:00 71 01/04/20 00:00 79 01/04/20 00:00 97.9 80 18 156/86 (109) 98 01/03/20 21:00 Room Air 01/03/20 20:00 78 01/03/20 20:00 99.6 78 17 158/77 (104) 100 01/03/20 16:23 76 01/03/20 15:15 99.3 80 18 145/64 (91) 95 01/03/20 12:00 98.2 69 21 151/76 (101) 99 Intake and Output 01/03/20 01/04/20 19:00 07:00 Intake Total 120 ml 250 ml Balance 120 ml 250 ml Intake Oral 120 ml Blood Product 250 ml # Voids 2 # Bowel Movements 1 Laboratory Tests 01/03/20 22:18: Stool Occult Blood [Pending] 01/04/20 06:49: White Blood Count 8.2, Red Blood Count 3.67L, Hemoglobin 9.1L, Hematocrit 27.6L , Mean Corpuscular Volume 75L, Mean Corpuscular Hemoglobin 24.7L, Mean Corpuscular Hemoglobin Concent 32.8, Red Cell Distribution Width 17.0H, Platelet Count 279, Mean Platelet Volume 5.5L, Neutrophils (%) (Auto) 63.1, Lymphocytes (%) (Auto) 23.1, Monocytes (%) (Auto) 8.5, Eosinophils (%) (Auto) 4.4H, Basophils (%) (Auto) 1.0, Sodium Level 143, Potassium Level 4.1, Chloride Level 109H, Carbon Dioxide Level 22, Anion Gap 13, Blood Urea Nitrogen 88H, Creatinine 4.1H, Estimat Glomerular Filtration Rate 13.1, Glucose Level 89, Uric Acid 8.4H, Calcium Level 9.4, Phosphorus Level 4.5, Magnesium Level 1.9, Total Bilirubin 0.4, Aspartate Amino Transf (AST/SGOT) 17, Alanine Aminotransferase (ALT/SGPT) 14, Alkaline Phosphatase 94, Total Protein 8.0, Albumin 2.8L, Globulin 5.2, Albumin/Globulin Ratio 0.5L, Carcinoembryonic Antigen [Pending] Height (Feet): 5 Height (Inches): 4.00 Weight (Pounds): 150 General Appearance: no apparent distress, lethargic Cardiovascular: normal rate Respiratory/Chest: decreased breath sounds Abdomen: soft Objective no change Iggy Springer MD Jan 04, 2020 12:06
--- NOTE | 2020-01-04 17:37 | Internal Med Progress Note ---
Subjective Date of Service: Jan 04, 2020 Physician Name Josué Jenkins Attending Physician Avila Gaspar MD Current Medications Medications (Trade) Dose Ordered Sig/Liam Route PRN Reason Start Time Stop Time Status Last Admin Dose Admin Acetaminophen (Tylenol) 650 mg Q4H PRN ORAL fever 01/03/20 18:15 01/30/20 18:14 Albuterol/ Ipratropium (Albuterol/ Ipratropium) 3 ml Q4H PRN HHN Shortness of Breath 01/03/20 18:15 01/08/20 18:14 Allopurinol (allopurinoL) 300 mg DAILY ORAL 01/04/20 09:00 02/03/20 08:59 01/04/20 08:37 Dextrose (Dextrose 50%) 25 ml Q30M PRN IV Hypoglycemia 01/03/20 18:15 01/30/20 18:44 Dextrose (Dextrose 50%) 50 ml Q30M PRN IV Hypoglycemia 01/03/20 18:15 01/30/20 18:44 Docusate Sodium (Colace) 100 mg THREE TIMES A DAY ORAL 01/04/20 09:00 01/31/20 12:59 01/04/20 08:37 Epoetin Jose Ramon (Epoetin Jose Ramon-EPBX(NON ESRD)) 10,000 unit SAT-SAT-SAT SUBQ 01/04/20 21:00 02/03/20 20:59 Folic Acid (Folate) 2 mg DAILY ORAL 01/04/20 09:00 01/31/20 10:14 01/04/20 08:37 Hydralazine HCl (Apresoline) 25 mg Q4H PRN ORAL bp over 160 syst 01/03/20 18:15 01/31/20 10:14 Iron Sucrose 100 mg/Sodium Chloride 55 ml @ 200 mls/hr BEDTIME IV 01/03/20 21:00 01/10/20 21:17 01/03/20 21:12 Levothyroxine Sodium (Synthroid) 100 mcg Q24H ORAL 01/04/20 06:30 02/01/20 06:29 01/04/20 06:04 Levothyroxine Sodium (Synthroid) 125 mcg DAILY@0630 ORAL 01/04/20 06:30 02/01/20 06:29 01/04/20 06:03 Nifedipine (Procardia XL) 60 mg BID ORAL 01/04/20 18:00 02/02/20 08:59 Ondansetron HCl (Zofran) 4 mg Q6H PRN IVP Nausea & Vomiting 01/03/20 18:15 01/30/20 18:14 Pantoprazole (Protonix) 40 mg EVERY 12 HOURS ORAL 01/03/20 21:00 01/31/20 20:59 01/04/20 08:37 Polyethylene Glycol (Miralax) 17 gm HSPRN PRN ORAL Constipation 01/03/20 18:15 01/30/20 18:14 Zolpidem Tartrate (Ambien) 5 mg HSPRN PRN ORAL Insomnia 01/03/20 18:45 01/07/20 18:44 Allergies: Coded Allergies: No Known Allergies (Unverified , 12/31/19) ROS Limited/Unobtainable: No Constitutional: Reports: no symptoms HEENT: Reports: no symptoms Cardiovascular: Reports: no symptoms Respiratory: Reports: no symptoms Gastrointestinal/Abdominal: Reports: no symptoms Genitourinary: Reports: no symptoms Neurologic/Psychiatric: Reports: no symptoms Subjective 69 YO F admitted with fatigue, now severe anemia. Cover for Int Med-Dr Gaspar Objective Last Vital Signs Date Time Temp Pulse Resp B/P (MAP) Pulse Ox O2 Delivery O2 Flow Rate FiO2 01/04/20 12:00 98.2 71 18 149/72 (97) 97 01/04/20 09:00 Room Air Laboratory Tests Test 01/03/20 22:18 01/04/20 06:49 Stool Occult Blood Positive (NEGATIVE) White Blood Count 8.2 K/UL (4.8-10.8) Red Blood Count 3.67 M/UL (4.20-5.40) L Hemoglobin 9.1 G/DL (12.0-16.0) L Hematocrit 27.6 % (37.0-47.0) L Mean Corpuscular Volume 75 FL (80-99) L Mean Corpuscular Hemoglobin 24.7 PG (27.0-31.0) L Mean Corpuscular Hemoglobin Concent 32.8 G/DL (32.0-36.0) Red Cell Distribution Width 17.0 % (11.6-14.8) H Platelet Count 279 K/UL (150-450) Mean Platelet Volume 5.5 FL (6.5-10.1) L Neutrophils (%) (Auto) 63.1 % (45.0-75.0) Lymphocytes (%) (Auto) 23.1 % (20.0-45.0) Monocytes (%) (Auto) 8.5 % (1.0-10.0) Eosinophils (%) (Auto) 4.4 % (0.0-3.0) H Basophils (%) (Auto) 1.0 % (0.0-2.0) Sodium Level 143 MMOL/L (136-145) Potassium Level 4.1 MMOL/L (3.5-5.1) Chloride Level 109 MMOL/L (98-107) H Carbon Dioxide Level 22 MMOL/L (21-32) Anion Gap 13 mmol/L (5-15) Blood Urea Nitrogen 88 mg/dL (7-18) H Creatinine 4.1 MG/DL (0.55-1.30) H Estimat Glomerular Filtration Rate 13.1 mL/min (>60) Glucose Level 89 MG/DL (74-106) Uric Acid 8.4 MG/DL (2.6-7.2) H Calcium Level 9.4 MG/DL (8.5-10.1) Phosphorus Level 4.5 MG/DL (2.5-4.9) Magnesium Level 1.9 MG/DL (1.8-2.4) Total Bilirubin 0.4 MG/DL (0.2-1.0) Aspartate Amino Transf (AST/SGOT) 17 U/L (15-37) Alanine Aminotransferase (ALT/SGPT) 14 U/L (12-78) Alkaline Phosphatase 94 U/L (46-116) Total Protein 8.0 G/DL (6.4-8.2) Albumin 2.8 G/DL (3.4-5.0) L Globulin 5.2 g/dL Albumin/Globulin Ratio 0.5 (1.0-2.7) L Carcinoembryonic Antigen Pending Intake and Output 01/03/20 01/04/20 19:00 07:00 Intake Total 120 ml 250 ml Balance 120 ml 250 ml Intake Oral 120 ml Blood Product 250 ml # Voids 2 # Bowel Movements 1 Objective PHYSICAL EXAMINATION: GENERAL: The patient is awake, responsive, and in no acute distress. HEAD AND NECK: Pupils are equal and reactive to light. Extraocular movements intact. NECK: Supple. No JVD. LUNGS: Good air entry. No wheeze or rales. HEART: S1, S2. Regular rhythm. No murmur or gallops. ABDOMEN: Soft, nondistended, and nontender. Positive bowel sounds. EXTREMITIES: No cyanosis, clubbing, or edema. NEUROLOGIC: Cranial nerves II through XII grossly intact. RECTAL: Refused and deferred. GENITOURINARY: Refused and deferred. PSYCHIATRIC: Mood and affect is intact. Assessment/Plan Assessment/Plan ASSESSMENT: 1. Severe symptomatic anemia, possible due to anemia of chronic disease; however, cannot rule out GI etiology. 2. Hypothyroidism. 3. Folic acid deficiency. 4. Hypertension. 5. Coronary artery disease. 6. Acute kidney injury on chronic renal insufficiency. 7. History of breast cancer. 8. occult blood positive PLAN: 1. Admit the patient to medical floor. We will follow up with the 2. Code status is Full Code. 3. S/P transfusion 1 unit PRBC on 12/31/19 4. Nephrology =Dr Springer 5. Pulmonary consultation=Dr Gil. 6. DVT prophylaxis, SCD. 7. S/P transfusion 2 unit PRBC 12/31/19 and 01/03/20 8. Anemia workup-GI=Dr Garcia. Stool for occult blood=positive Josué Jenkins MD Jan 04, 2020 17:37
--- NOTE | 2020-01-04 19:15 | Consultation ---
DATE OF CONSULTATION: 01/04/2020 CONSULTING PHYSICIAN: Todd Garcia MD CHIEF COMPLAINT: Anemia. HISTORY OF PRESENT ILLNESS: This 69-year-old -[place] female admitted to the hospital mainly for complaining of weakness, was found to be profoundly anemic, hemoglobin about 7 ranges and stool OB came back positive. So, GI consult requested for evaluation. PAST MEDICAL HISTORY: 1. History of hypothyroidism. 2. Chronic kidney disease. 3. Hypertension. 4. Coronary artery disease. 5. History of breast cancer. ALLERGIES: No known allergies. MEDICATIONS: Please see medication reconciliation list. SOCIAL HISTORY: The patient denies any tobacco, alcohol, or drug abuse. FAMILY HISTORY: Noncontributory. REVIEW OF SYSTEMS: A 10-point review of systems was performed and pertinent positives as in HPI. PHYSICAL EXAMINATION: GENERAL: This is a well-developed female in no acute distress. VITAL SIGNS: Temperature 97.3, pulse is 71, respirations 18, blood pressure is 172/79. HEENT: Normocephalic, atraumatic. Pale conjunctivae. NECK: Supple. No evidence of obvious lymphadenopathy. CARDIOVASCULAR: Regular rate and rhythm. Plus S1-S2. LUNGS: Decreased breath sounds bilaterally based on the supine exam. ABDOMEN: Soft, nontender. No rebound. No guarding. No peritoneal sign. EXTREMITIES: No cyanosis, no clubbing, no edema. LABORATORY DATA: White count is 8.2, hemoglobin 9.1, hematocrit 27, platelet count is 279. BUN is 88, creatinine is 4.1. ASSESSMENT AND PLAN: This is a 69-year-old female with iron deficiency anemia, stool OB positive, drop in H and H, requiring blood transfusion, last colonoscopy 16 years ago. The patient needs an endoscopy and colonoscopy for evaluation of anemia, stool OB positive and GI bleeding. The procedure was explained to her in presence of her family and she agreed to it. Plan to prep her tomorrow for endoscopy and colonoscopy on Saturday. I want to thank Dr. Avila Gaspar for this kind referral. Todd Garcia M.D. DR: JESUS JOB#: [id number] CC: Avila Gaspar M.D.; Fax#: [phone]
[2020-01-04] MEDS ORDERED: Epoetin Alfa-EPBX (NON ESRD)10,000 unit/ml vial SUBQ SCH ×2 (21:00)
[2020-01-05] VITALS: BP 151/73
[2020-01-05 04:00] VITALS: BP 127/56
[2020-01-05] MEDS: Levothyroxine 125mcg tab ORAL SCH (06:16)
[2020-01-05 07:35] LABS: BASOPHILS % (AUTO) 0.9 % (0.0-2.0); EOSINOPHILS % (AUTO) 4.1 % (0.0-3.0); HEMOGLOBIN 9.8 G/DL (12.0-16.0); LYMPHOCYTES % (AUTO) 20.5 % (20.0-45.0); MEAN CORPUSCULAR VOLUME 76 FL (80-99); MONOCYTES % (AUTO) 8.1 % (1.0-10.0); NEUTROPHILS % (AUTO) 66.4 % (45.0-75.0); PLATELET COUNT 316 K/UL (150-450); RED BLOOD COUNT 4.09 M/UL (4.20-5.40); RED CELL DISTRIBUTION WIDTH 16.2 % (11.6-14.8); WHITE BLOOD COUNT 9.4 K/UL (4.8-10.8)
[2020-01-05 08:00] VITALS: BP 149/69
[2020-01-05 08:07] LABS: ANION GAP 16 mmol/L (5-15); BLOOD UREA NITROGEN 92 mg/dL (7-18); CALCIUM 9.5 MG/DL (8.5-10.1); CARBON DIOXIDE 19 MMOL/L (21-32); CHLORIDE 107 MMOL/L (98-107); CREATININE 4.4 MG/DL (0.55-1.30); POTASSIUM 4.4 MMOL/L (3.5-5.1); SODIUM 142 MMOL/L (136-145)
[2020-01-05] MEDS: Docusate 100mg cap ORAL SCH ×4 (09:00→17:22)
--- NOTE | 2020-01-05 10:22 | General Progress Note ---
Assessment/Plan Assessment/Plan: 1. History of hypothyroidism. 2. Chronic kidney disease. 3. Hypertension. 4. Coronary artery disease. 5. History of breast cancer. 6. anemia plan EGD and colonoscopy for tomorrow Subjective ROS Limited/Unobtainable: Yes Allergies: Coded Allergies: No Known Allergies (Unverified , 12/31/19) Objective Last 24 Hour Vital Signs Date Time Temp Pulse Resp B/P (MAP) Pulse Ox O2 Delivery O2 Flow Rate FiO2 01/05/20 09:31 63 149/69 01/05/20 08:00 98.2 63 19 149/69 (95) 97 01/05/20 04:00 98.1 76 20 127/56 (79) 95 01/05/20 00:00 99.1 75 20 151/73 (99) 95 01/04/20 21:00 Room Air 01/04/20 20:00 98.6 80 19 149/77 (101) 97 01/04/20 18:42 72 151/75 01/04/20 18:38 98.1 72 18 151/75 (100) 94 01/04/20 16:00 98.2 70 18 159/70 (99) 96 01/04/20 16:00 70 01/04/20 12:00 98.2 71 18 149/72 (97) 97 01/04/20 12:00 69 Intake and Output 01/04/20 01/05/20 19:00 07:00 # Bowel Movements 1 Laboratory Tests 01/05/20 07:02: White Blood Count 9.4, Red Blood Count 4.09L, Hemoglobin 9.8L, Hematocrit 31.0L , Mean Corpuscular Volume 76L, Mean Corpuscular Hemoglobin 24.0L, Mean Corpuscular Hemoglobin Concent 31.6L, Red Cell Distribution Width 16.2H, Platelet Count 316, Mean Platelet Volume 5.1L, Neutrophils (%) (Auto) 66.4, Lymphocytes (%) (Auto) 20.5, Monocytes (%) (Auto) 8.1, Eosinophils (%) (Auto) 4.1H, Basophils (%) (Auto) 0.9, Sodium Level 142, Potassium Level 4.4, Chloride Level 107, Carbon Dioxide Level 19L, Anion Gap 16H, Blood Urea Nitrogen 92H, Creatinine 4.4H, Estimat Glomerular Filtration Rate 12.0, Glucose Level 93, Calcium Level 9.5 Height (Feet): 5 Height (Inches): 4.00 Weight (Pounds): 150 General Appearance: alert EENT: normal ENT inspection Neck: supple Cardiovascular: normal rate Respiratory/Chest: decreased breath sounds Abdomen: normal bowel sounds, non tender, soft Extremities: non-tender Todd Garcia MD Jan 05, 2020 10:22
[2020-01-05 12:00] VITALS: BP 133/89
--- NOTE | 2020-01-05 12:14 | Nephrology Progress Note ---
Assessment/Plan Problem List: (1) Acute on chronic renal insufficiency (2) History of hypertension (3) Anemia in chronic kidney disease (CKD) (4) Hypertensive kidney disease (5) Breast cancer Assessment Acute renal failure- ? CKD underlying- Severe Anemia- Low MCV HypoThyroid h/o Breast Ca . Plan Cr slowly rising Iron panel- Low Iron IV Iron Allopurinol EPO SQ Keep BP in check Avoid Nephrotoxics 2D echo 60% folic acid Kidney TALYA Medical renal disease. Left kidney somewhat limited in evaluation. 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 CT may be confirmatory. Subjective ROS Limited/Unobtainable: No Constitutional: Reports: malaise, weakness Objective Objective Last 24 Hour Vital Signs Date Time Temp Pulse Resp B/P (MAP) Pulse Ox O2 Delivery O2 Flow Rate FiO2 01/05/20 09:31 63 149/69 01/05/20 08:00 98.2 63 19 149/69 (95) 97 01/05/20 04:00 98.1 76 20 127/56 (79) 95 01/05/20 00:00 99.1 75 20 151/73 (99) 95 01/04/20 21:00 Room Air 01/04/20 20:00 98.6 80 19 149/77 (101) 97 01/04/20 18:42 72 151/75 01/04/20 18:38 98.1 72 18 151/75 (100) 94 01/04/20 16:00 98.2 70 18 159/70 (99) 96 01/04/20 16:00 70 Intake and Output 01/04/20 01/05/20 19:00 07:00 # Bowel Movements 1 Laboratory Tests 01/05/20 07:02: White Blood Count 9.4, Red Blood Count 4.09L, Hemoglobin 9.8L, Hematocrit 31.0L , Mean Corpuscular Volume 76L, Mean Corpuscular Hemoglobin 24.0L, Mean Corpuscular Hemoglobin Concent 31.6L, Red Cell Distribution Width 16.2H, Platelet Count 316, Mean Platelet Volume 5.1L, Neutrophils (%) (Auto) 66.4, Lymphocytes (%) (Auto) 20.5, Monocytes (%) (Auto) 8.1, Eosinophils (%) (Auto) 4.1H, Basophils (%) (Auto) 0.9, Sodium Level 142, Potassium Level 4.4, Chloride Level 107, Carbon Dioxide Level 19L, Anion Gap 16H, Blood Urea Nitrogen 92H, Creatinine 4.4H, Estimat Glomerular Filtration Rate 12.0, Glucose Level 93, Calcium Level 9.5 Height (Feet): 5 Height (Inches): 4.00 Weight (Pounds): 150 General Appearance: no apparent distress Cardiovascular: normal rate Respiratory/Chest: decreased breath sounds Abdomen: soft Objective no change Iggy Springer MD Jan 05, 2020 12:14
[2020-01-05] MEDS ORDERED: Cyclobenzaprine 10mg Tab ORAL PRN ×2 (12:30→12:57)
[2020-01-05 12:35] LABS: ALANINE AMINOTRANSFERASE 19 U/L (12-78); ALBUMIN 3.1 G/DL (3.4-5.0); ALKALINE PHOSPHATASE 109 U/L (46-116); ASPARTATE AMINO TRANSFERASE 22 U/L (15-37); BILIRUBIN,DIRECT < 0.1 MG/DL (0.0-0.3); BILIRUBIN,TOTAL 0.3 MG/DL (0.2-1.0); PHOSPHORUS 4.4 MG/DL (2.5-4.9)
--- NOTE | 2020-01-05 12:36 | Pulmonology Progress Note ---
Assessment/Plan Problems: (1) Musculoskeletal chest pain (2) Symptomatic anemia (3) Acute on chronic renal insufficiency (4) History of hypertension (5) Hypothyroidism (6) CAD (coronary artery disease) (7) Hypertensive kidney disease Assessment/Plan symptomatic treatment with Lidocaine patch and Flexeri for colonoscopy in am to rule out GI bleeding as source of anemia f/u renal recommendation echo reviewed, EF is 60-65% monitor BP titrate cardiac meds if needed. Subjective ROS Limited/Unobtainable: No Interval Events: Right upper chest pain Constitutional: Reports: no symptoms HEENT: Repors: no symptoms Respiratory: Reports: no symptoms Allergies: Coded Allergies: No Known Allergies (Unverified , 12/31/19) Objective Last 24 Hour Vital Signs Date Time Temp Pulse Resp B/P (MAP) Pulse Ox O2 Delivery O2 Flow Rate FiO2 01/05/20 09:31 63 149/69 01/05/20 08:00 98.2 63 19 149/69 (95) 97 01/05/20 04:00 98.1 76 20 127/56 (79) 95 01/05/20 00:00 99.1 75 20 151/73 (99) 95 01/04/20 21:00 Room Air 01/04/20 20:00 98.6 80 19 149/77 (101) 97 01/04/20 18:42 72 151/75 01/04/20 18:38 98.1 72 18 151/75 (100) 94 01/04/20 16:00 98.2 70 18 159/70 (99) 96 01/04/20 16:00 70 Intake and Output 01/04/20 01/05/20 19:00 07:00 # Bowel Movements 1 General Appearance: WD/WN HEENT: normocephalic, atraumatic Respiratory/Chest: chest wall non-tender, lungs clear Cardiovascular: normal peripheral pulses, normal rate Abdomen: normal bowel sounds, soft, non tender Neurologic/Psychiatric: 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 Laboratory Tests 01/05/20 07:02: White Blood Count 9.4, Red Blood Count 4.09L, Hemoglobin 9.8L, Hematocrit 31.0L , Mean Corpuscular Volume 76L, Mean Corpuscular Hemoglobin 24.0L, Mean Corpuscular Hemoglobin Concent 31.6L, Red Cell Distribution Width 16.2H, Platelet Count 316, Mean Platelet Volume 5.1L, Neutrophils (%) (Auto) 66.4, Lymphocytes (%) (Auto) 20.5, Monocytes (%) (Auto) 8.1, Eosinophils (%) (Auto) 4.1H, Basophils (%) (Auto) 0.9, Sodium Level 142, Potassium Level 4.4, Chloride Level 107, Carbon Dioxide Level 19L, Anion Gap 16H, Blood Urea Nitrogen 92H, Creatinine 4.4H, Estimat Glomerular Filtration Rate 12.0, Glucose Level 93, Calcium Level 9.5 01/05/20 07:07: Uric Acid [Pending], Phosphorus Level [Pending], Magnesium Level [Pending], Total Bilirubin [Pending], Direct Bilirubin [Pending], Aspartate Amino Transf ( AST/SGOT) [Pending], Alanine Aminotransferase (ALT/SGPT) [Pending], Alkaline Phosphatase [Pending], Total Protein [Pending], Albumin [Pending] Current Medications Medications (Trade) Dose Ordered Sig/Liam Route PRN Reason Start Time Stop Time Status Last Admin Dose Admin Acetaminophen (Tylenol) 650 mg Q4H PRN ORAL fever 01/03/20 18:15 01/30/20 18:14 Albuterol/ Ipratropium (Albuterol/ Ipratropium) 3 ml Q4H PRN HHN Shortness of Breath 01/03/20 18:15 01/08/20 18:14 Allopurinol (allopurinoL) 300 mg DAILY ORAL 01/04/20 09:00 02/03/20 08:59 01/05/20 09:30 Dextrose (Dextrose 50%) 25 ml Q30M PRN IV Hypoglycemia 01/03/20 18:15 01/30/20 18:44 Dextrose (Dextrose 50%) 50 ml Q30M PRN IV Hypoglycemia 01/03/20 18:15 01/30/20 18:44 Dextrose/ Electrolytes 1,000 ml @ 75 mls/hr [id number] IV 01/05/20 16:00 02/04/20 15:59 Docusate Sodium (Colace) 100 mg THREE TIMES A DAY ORAL 01/04/20 09:00 01/31/20 12:59 01/04/20 08:37 Epoetin Jose Ramon (Epoetin Jose Ramon-EPBX(NON ESRD)) 10,000 unit MON-SAT-SAT SUBQ 01/04/20 21:00 02/03/20 20:59 01/04/20 20:54 Folic Acid (Folate) 2 mg DAILY ORAL 01/04/20 09:00 01/31/20 10:14 01/05/20 09:31 Hydralazine HCl (Apresoline) 25 mg Q4H PRN ORAL bp over 160 syst 01/03/20 18:15 01/31/20 10:14 Iron Sucrose 100 mg/Sodium Chloride 55 ml @ 200 mls/hr BEDTIME IV 01/03/20 21:00 01/10/20 21:17 01/04/20 20:54 Levothyroxine Sodium (Synthroid) 100 mcg Q24H ORAL 01/04/20 06:30 02/01/20 06:29 01/05/20 06:16 Levothyroxine Sodium (Synthroid) 125 mcg DAILY@0630 ORAL 01/04/20 06:30 02/01/20 06:29 01/05/20 06:16 Nifedipine (Procardia XL) 60 mg BID ORAL 01/04/20 18:00 02/02/20 08:59 01/05/20 09:31 Ondansetron HCl (Zofran) 4 mg Q6H PRN IVP Nausea & Vomiting 01/03/20 18:15 01/30/20 18:14 Pantoprazole (Protonix) 40 mg EVERY 12 HOURS ORAL 01/03/20 21:00 01/31/20 20:59 01/05/20 09:31 Polyethylene Glycol (Miralax) 17 gm HSPRN PRN ORAL Constipation 01/03/20 18:15 01/30/20 18:14 Polyethylene Glycol/ Electrolytes (Nulytely) 4,000 ml ONCE ORAL 01/05/20 14:00 01/05/20 23:59 Zolpidem Tartrate (Ambien) 5 mg HSPRN PRN ORAL Insomnia 01/03/20 18:45 01/07/20 18:44 Bean Gil MD Jan 05, 2020 12:36
[2020-01-05] MEDS ORDERED: Albuterol/Ipratropium 3ml neb HHN PRN (12:57)
[2020-01-05] MEDS ORDERED: Miralax 17gm pkt ORAL PRN (13:00)
[2020-01-05] MEDS ORDERED: Nulytely 4L ORAL SCH ×2 (14:00→15:00)
--- NOTE | 2020-01-05 14:24 | Cardiology Progress Note ---
Assessment/Plan Assessment/Plan [id number] Objective Last 24 Hour Vital Signs Date Time Temp Pulse Resp B/P (MAP) Pulse Ox O2 Delivery O2 Flow Rate FiO2 01/05/20 12:00 97.7 71 18 133/89 (104) 98 01/05/20 09:31 63 149/69 01/05/20 09:00 Room Air 01/05/20 08:00 98.2 63 19 149/69 (95) 97 01/05/20 04:00 98.1 76 20 127/56 (79) 95 01/05/20 00:00 99.1 75 20 151/73 (99) 95 01/04/20 21:00 Room Air 01/04/20 20:00 98.6 80 19 149/77 (101) 97 01/04/20 18:42 72 151/75 01/04/20 18:38 98.1 72 18 151/75 (100) 94 01/04/20 16:00 98.2 70 18 159/70 (99) 96 01/04/20 16:00 70 Intake and Output 01/04/20 01/05/20 19:00 07:00 # Bowel Movements 1 Laboratory Tests Test 01/05/20 07:02 01/05/20 07:07 White Blood Count 9.4 K/UL (4.8-10.8) Red Blood Count 4.09 M/UL (4.20-5.40) L Hemoglobin 9.8 G/DL (12.0-16.0) L Hematocrit 31.0 % (37.0-47.0) L Mean Corpuscular Volume 76 FL (80-99) L Mean Corpuscular Hemoglobin 24.0 PG (27.0-31.0) L Mean Corpuscular Hemoglobin Concent 31.6 G/DL (32.0-36.0) L Red Cell Distribution Width 16.2 % (11.6-14.8) H Platelet Count 316 K/UL (150-450) Mean Platelet Volume 5.1 FL (6.5-10.1) L Neutrophils (%) (Auto) 66.4 % (45.0-75.0) Lymphocytes (%) (Auto) 20.5 % (20.0-45.0) Monocytes (%) (Auto) 8.1 % (1.0-10.0) Eosinophils (%) (Auto) 4.1 % (0.0-3.0) H Basophils (%) (Auto) 0.9 % (0.0-2.0) Sodium Level 142 MMOL/L (136-145) Potassium Level 4.4 MMOL/L (3.5-5.1) Chloride Level 107 MMOL/L (98-107) Carbon Dioxide Level 19 MMOL/L (21-32) L Anion Gap 16 mmol/L (5-15) H Blood Urea Nitrogen 92 mg/dL (7-18) H Creatinine 4.4 MG/DL (0.55-1.30) H Estimat Glomerular Filtration Rate 12.0 mL/min (>60) Glucose Level 93 MG/DL (74-106) Calcium Level 9.5 MG/DL (8.5-10.1) Uric Acid 8.0 MG/DL (2.6-7.2) H Phosphorus Level 4.4 MG/DL (2.5-4.9) Magnesium Level 1.9 MG/DL (1.8-2.4) Total Bilirubin 0.3 MG/DL (0.2-1.0) Direct Bilirubin < 0.1 MG/DL (0.0-0.3) Aspartate Amino Transf (AST/SGOT) 22 U/L (15-37) Alanine Aminotransferase (ALT/SGPT) 19 U/L (12-78) Alkaline Phosphatase 109 U/L (46-116) Total Protein 8.8 G/DL (6.4-8.2) H Albumin 3.1 G/DL (3.4-5.0) Greyson Gates MD Jan 05, 2020 14:24
--- NOTE | 2020-01-05 15:20 | Diagnostic Imaging Report ---
Indication: Right arm pain and edema Technique: Grayscale and duplex images of the right upper extremity veins Comparison: none Findings: There is nearly occlusive thrombus within the left cephalic vein above the elbow. This results in noncompressibility. The remaining veins demonstrate no intraluminal thrombus, normal phasic Doppler waveforms, and no evidence of valvular insufficiency. Normal compressibility. There is edema of the subcutaneous fat. Impression: Positive for right cephalic venous thrombosis above the elbow
[2020-01-05] MEDS ORDERED: D5 1/2NS w/KCl 20mEq 1,000 ML IV SCH (16:00)
[2020-01-05 16:11] VITALS: BP 156/71
[2020-01-05] MEDS: D5 1/2NS w/KCl 20mEq 1,000 ML IV SCH (16:37)
[2020-01-05] MEDS ORDERED: Zolpidem 5mg tab ORAL PRN (18:45)
--- NOTE | 2020-01-05 19:31 | Internal Med Progress Note ---
Subjective Date of Service: Jan 05, 2020 Physician Name Josué Jenkins Attending Physician Avila Gasapr MD Current Medications Medications (Trade) Dose Ordered Sig/Liam Route PRN Reason Start Time Stop Time Status Last Admin Dose Admin Acetaminophen (Tylenol) 650 mg Q4H PRN ORAL fever 01/05/20 12:56 02/04/20 12:55 Albuterol/ Ipratropium (Albuterol/ Ipratropium) 3 ml Q4H PRN HHN Shortness of Breath 01/05/20 12:57 01/10/20 12:56 Allopurinol (allopurinoL) 300 mg DAILY ORAL 01/06/20 09:00 02/03/20 08:59 Cyclobenzaprine HCl (Flexeril) 10 mg TIDPRN PRN ORAL Muscle Spasm 01/05/20 12:57 02/04/20 12:56 01/05/20 13:17 Dextrose (Dextrose 50%) 25 ml Q30M PRN IV Hypoglycemia 01/05/20 13:15 01/30/20 18:44 Dextrose (Dextrose 50%) 50 ml Q30M PRN IV Hypoglycemia 01/05/20 13:15 01/30/20 18:44 Dextrose/ Electrolytes 1,000 ml @ 75 mls/hr [id number] IV 01/05/20 16:00 02/04/20 15:59 01/05/20 16:37 Docusate Sodium (Colace) 100 mg THREE TIMES A DAY ORAL 01/05/20 13:00 01/31/20 12:59 Epoetin Jose Ramon (Epoetin Jose Ramon-EPBX(NON ESRD)) 10,000 unit SAT-SAT-SAT SUBQ 01/06/20 21:00 02/03/20 20:59 Folic Acid (Folate) 2 mg DAILY ORAL 01/06/20 09:00 01/31/20 10:14 Hydralazine HCl (Apresoline) 25 mg Q4H PRN ORAL bp over 160 syst 01/05/20 12:58 02/04/20 12:57 Iron Sucrose 100 mg/Sodium Chloride 55 ml @ 200 mls/hr BEDTIME IV 01/05/20 21:00 01/10/20 21:17 Levothyroxine Sodium (Synthroid) 100 mcg Q24H ORAL 01/06/20 06:30 02/01/20 06:29 Levothyroxine Sodium (Synthroid) 125 mcg DAILY@0630 ORAL 01/06/20 06:30 02/01/20 06:29 Lidocaine (Xylocaine 5% cream) 1 applic DAILY TOPIC 01/05/20 15:00 02/04/20 14:59 01/05/20 15:22 Nifedipine (Procardia XL) 60 mg BID ORAL 01/05/20 18:00 02/02/20 08:59 01/05/20 17:44 Ondansetron HCl (Zofran) 4 mg Q6H PRN IVP Nausea & Vomiting 01/05/20 12:58 02/04/20 12:57 Pantoprazole (Protonix) 40 mg EVERY 12 HOURS ORAL 01/05/20 21:00 01/31/20 20:59 Polyethylene Glycol (Miralax) 17 gm HSPRN PRN ORAL Constipation 01/05/20 13:00 02/04/20 12:59 Zolpidem Tartrate (Ambien) 5 mg HSPRN PRN ORAL Insomnia 01/05/20 18:45 01/07/20 18:44 Allergies: Coded Allergies: No Known Allergies (Unverified , 12/31/19) ROS Limited/Unobtainable: No Constitutional: Reports: no symptoms HEENT: Reports: no symptoms Cardiovascular: Reports: no symptoms Respiratory: Reports: no symptoms Gastrointestinal/Abdominal: Reports: no symptoms Genitourinary: Reports: no symptoms Neurologic/Psychiatric: Reports: no symptoms Subjective 69 YO F admitted with fatigue, now severe anemia. Cover for Int Jose-Dr Gaspar. Await Colonoscopy and endoscopy 01/06/20 Objective Last Vital Signs Date Time Temp Pulse Resp B/P (MAP) Pulse Ox O2 Delivery O2 Flow Rate FiO2 01/05/20 17:44 66 156/71 01/05/20 16:11 99.1 19 97 01/05/20 09:00 Room Air Laboratory Tests Test 01/05/20 07:02 01/05/20 07:07 White Blood Count 9.4 K/UL (4.8-10.8) Red Blood Count 4.09 M/UL (4.20-5.40) L Hemoglobin 9.8 G/DL (12.0-16.0) L Hematocrit 31.0 % (37.0-47.0) L Mean Corpuscular Volume 76 FL (80-99) L Mean Corpuscular Hemoglobin 24.0 PG (27.0-31.0) L Mean Corpuscular Hemoglobin Concent 31.6 G/DL (32.0-36.0) L Red Cell Distribution Width 16.2 % (11.6-14.8) H Platelet Count 316 K/UL (150-450) Mean Platelet Volume 5.1 FL (6.5-10.1) L Neutrophils (%) (Auto) 66.4 % (45.0-75.0) Lymphocytes (%) (Auto) 20.5 % (20.0-45.0) Monocytes (%) (Auto) 8.1 % (1.0-10.0) Eosinophils (%) (Auto) 4.1 % (0.0-3.0) H Basophils (%) (Auto) 0.9 % (0.0-2.0) Sodium Level 142 MMOL/L (136-145) Potassium Level 4.4 MMOL/L (3.5-5.1) Chloride Level 107 MMOL/L (98-107) Carbon Dioxide Level 19 MMOL/L (21-32) L Anion Gap 16 mmol/L (5-15) H Blood Urea Nitrogen 92 mg/dL (7-18) H Creatinine 4.4 MG/DL (0.55-1.30) H Estimat Glomerular Filtration Rate 12.0 mL/min (>60) Glucose Level 93 MG/DL (74-106) Calcium Level 9.5 MG/DL (8.5-10.1) Uric Acid 8.0 MG/DL (2.6-7.2) H Phosphorus Level 4.4 MG/DL (2.5-4.9) Magnesium Level 1.9 MG/DL (1.8-2.4) Total Bilirubin 0.3 MG/DL (0.2-1.0) Direct Bilirubin < 0.1 MG/DL (0.0-0.3) Aspartate Amino Transf (AST/SGOT) 22 U/L (15-37) Alanine Aminotransferase (ALT/SGPT) 19 U/L (12-78) Alkaline Phosphatase 109 U/L (46-116) Total Protein 8.8 G/DL (6.4-8.2) H Albumin 3.1 G/DL (3.4-5.0) L Intake and Output 01/04/20 01/05/20 19:00 07:00 # Bowel Movements 1 Objective PHYSICAL EXAMINATION: GENERAL: The patient is awake, responsive, and in no acute distress. HEAD AND NECK: Pupils are equal and reactive to light. Extraocular movements intact. NECK: Supple. No JVD. LUNGS: Good air entry. No wheeze or rales. HEART: S1, S2. Regular rhythm. No murmur or gallops. ABDOMEN: Soft, nondistended, and nontender. Positive bowel sounds. EXTREMITIES: No cyanosis, clubbing, or edema. NEUROLOGIC: Cranial nerves II through XII grossly intact. RECTAL: Refused and deferred. GENITOURINARY: Refused and deferred. PSYCHIATRIC: Mood and affect is intact. Assessment/Plan Assessment/Plan ASSESSMENT: 1. Severe symptomatic anemia, possible due to anemia of chronic disease; however, cannot rule out GI etiology. 2. Hypothyroidism. 3. Folic acid deficiency. 4. Hypertension. 5. Coronary artery disease. 6. Acute kidney injury on chronic renal insufficiency. 7. History of breast cancer. 8. occult blood positive PLAN: 1. Admit the patient to medical floor. We will follow up with the 2. Code status is Full Code. 3. S/P transfusion 1 unit PRBC on 12/31/19 4. Nephrology =Dr Springer 5. Pulmonary consultation=Dr Gil. 6. DVT prophylaxis, SCD. 7. S/P transfusion 2 unit PRBC 12/31/19 and 01/03/20 8. Anemia workup-GI=Dr Garcia. Stool for occult blood=positive; await colonoscopy and endoscopy 01/06/20 Josué Jenkins MD Jan 05, 2020 19:31
[2020-01-05 20:00] VITALS: BP 147/57
--- NOTE | 2020-01-05 21:30 | Consultation ---
DATE OF CONSULTATION: 01/05/2020 CARDIOLOGY CONSULTATION CONSULTING PHYSICIAN: Greyson Zafar M.D. REFERRING PHYSICIAN: Avila Gaspar M.D. and Bean Gil M.D. REASON FOR REFERRAL: Exertional fatigue. HISTORY OF PRESENT ILLNESS: This is an elderly female who presented to the hospital because of symptomatic fatigue. Walking minimal distances, she would have very much feeling tired. Does not really have any chest pain and does not have any shortness of breath. There is no PND. Likes to use 2 pillows for comfort. No palpitation and no dizziness on standing. The patient has no prior cardiac issues according to herself except she does have a history of hypertension. PAST MEDICAL HISTORY: Positive for history of hypertension. No history of heart attack. She does have history of breast cancer, status post lumpectomy and radiation therapy. No stroke. No hepatitis or tuberculosis. No asthma or emphysema. No ulcers. She does have the kidney stones. No liver disease. She has had thyroidectomy. No anemia. She has had a history of arthritis. No HIV, AIDS, or blood clots. ALLERGIES: She is not allergic to any medications. SOCIAL HISTORY: She used to smoke and drink. She quit those approximately 30 days ago. No drug use. REVIEW OF SYSTEMS: GASTROINTESTINAL: Negative. GENITOURINARY: Negative. PULMONARY: Negative. CONSTITUTIONAL: Fatigue as noted. PHYSICAL EXAMINATION: GENERAL: Shows to be elderly female, in no respiratory distress. NECK: Supple. No jugular venous distention is noted. LUNGS: There are few crackles noted at the bases bilaterally. CARDIAC: Regular rate and rhythm. No heaves, thrills, or gallops noted. ABDOMEN: Soft, nontender. Positive bowel sounds. EXTREMITIES: There is no clubbing, cyanosis, nor is there any edema. NEUROLOGICAL: She is awake, alert, and responsive. LABORATORY VALUES: The patient's hemoglobin at the time of admission on 12/31/2019 was 7.3. She has had levels now up to about 9.8, white count 9.4, hemoglobin 9.8, and platelet count 316. Sedimentation rate of 112. Sodium 142, potassium 4.4, chloride 107, bicarb of 19, BUN of 92, creatinine of 4.4, and glucose of 93. A1c of 8 to 8.4. Calcium is 9.5, magnesium 1.9. AST and ALT within normal limits. Total protein of 8 with albumin of 3.1 and CEA of 5.8. INR 1.1 and PTT of 28. Urinalysis is 2 to 4 rbc's, 0 wbc's. Stool for occult blood has been positive on 2 separate occasions. B12 level of 463. Folic acid is 7.4. TSH of 16.89, free T4 0.91, free T3 of 1.4. X-rays of her chest shows somewhat limited examination. Heart is enlarged. Aorta is tortuous, ectatic, calcified. Pleural spaces appear to be clear. 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 The patient's telemetry . EKG shows sinus with left axis deviation and no other significant abnormalities. ASSESSMENT AND PLAN: 1. Anemia. 2. OB positive stools. 3. Fatigue secondary to severe anemia. 4. Hypothyroidism. 5. History of breast cancer, status post radiation therapy and lumpectomy. 6. Renal failure. This patient was seen in cardiac consultation. The patient appears at the present time to be hemodynamically stable. From a cardiac point of view, I do not see any major issues. She does have some renal insufficiency that is likely related to different factors, but she may have had an echocardiogram already and I will try to review those echocardiographic findings. No major indication cardiac-stanley for any medications at this time, but further recommendations will be provided. The patient herself denies any history of heart attack. The chart indicates some history of coronary artery disease; however, there is nothing to substantiate based on present records. Greyson Zafar M.D. DR: KRISTIN JOB#: [id number] CC:
[2020-01-06] VITALS (10 sets, daily range): BP systolic 107–162; BP diastolic 51–82
[2020-01-06] MEDS: Levothyroxine 125mcg tab ORAL SCH (05:33)
[2020-01-06] MEDS: HydrALAZINE 25mg tab ORAL PRN ×2 (05:33→12:34)
[2020-01-06] MEDS: D5 1/2NS w/KCl 20mEq 1,000 ML IV SCH ×3 (05:33→19:01)
[2020-01-06 07:11] LABS: BASOPHILS % (AUTO) 0.8 % (0.0-2.0); EOSINOPHILS % (AUTO) 3.9 % (0.0-3.0); HEMOGLOBIN 9.6 G/DL (12.0-16.0); LYMPHOCYTES % (AUTO) 22.3 % (20.0-45.0); MEAN CORPUSCULAR VOLUME 76 FL (80-99); PLATELET COUNT 299 K/UL (150-450); RED BLOOD COUNT 3.95 M/UL (4.20-5.40); RED CELL DISTRIBUTION WIDTH 16.6 % (11.6-14.8); WHITE BLOOD COUNT 9.2 K/UL (4.8-10.8)
[2020-01-06 07:20] LABS: ALANINE AMINOTRANSFERASE 22 U/L (12-78); ALBUMIN/GLOBULIN RATIO 0.5 (1.0-2.7); ALKALINE PHOSPHATASE 104 U/L (46-116); ANION GAP 14 mmol/L (5-15); ASPARTATE AMINO TRANSFERASE 26 U/L (15-37); BILIRUBIN,TOTAL 0.3 MG/DL (0.2-1.0); BLOOD UREA NITROGEN 84 mg/dL (7-18); CALCIUM 9.5 MG/DL (8.5-10.1); CARBON DIOXIDE 20 MMOL/L (21-32); CHLORIDE 109 MMOL/L (98-107); CREATININE 4.1 MG/DL (0.55-1.30); POTASSIUM 4.5 MMOL/L (3.5-5.1); SODIUM 143 MMOL/L (136-145)
[2020-01-06 07:56] LABS: PHOSPHORUS 4.1 MG/DL (2.5-4.9)
[2020-01-06] MEDS: Docusate 100mg cap ORAL SCH ×3 (09:00→18:00)
--- NOTE | 2020-01-06 10:37 | Pre-Procedure Note/Attestation ---
Pre-Procedure Note/Attestation Complete Prior to Procedure Planned Procedure: not applicable Procedure Narrative: esophagogastroduodenoscopy and colonoscopy Indications for Procedure Pre-Operative Diagnosis: anemia Attestation I attest that I discussed the nature of the procedure; its benefits; risks and complications; and alternatives (and the risks and benefits of such alternatives ), prior to the procedure, with the patient (or the patient's legal patient portal representative). I attest that, if there was a reasonable possibility of needing a blood transfusion, the patient (or the patient's legal patient portal representative) was given the [facility] standardized written summary, pursuant to the Yonny Syd Blood Safety Act ([place] Health and Safety Code # 1645, as amended). I attest that I re-evaluated the patient just prior to the surgery and that there has been no change in the patient's H&P, except as documented below: Todd Garcia MD Jan 06, 2020 10:37
--- NOTE | 2020-01-06 10:48 | CDS Physician Query ---
Clarification is required for compliance, coding accuracy, and to reflect severity of illness for this patient Dear Dr. Elizabeth, Date:01.06.20 CDS: [facility] Medical renal disease. Left kidney somewhat limited in evaluation. 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 CT may be confirmatory. Anemia in chronic kidney disease documented on progress note GFR 02.13-9.9 02.14-13.1 02.15-13.5 02.18-12.0 Please Clarify if you mean: Stages Description GFR [ ] CKD Stage 1 Caused by DM, HTN, etc. with kidney abnormality 90 mL/min or more [ ] CKD Stage 2 Mild decrease in Kidney function 60 to 89 mL/min [ ] CKD Stage 3 Moderate decrease in kidney function 30- 59 [ +] CKD Stage 4 Severe decrease in kidney function 15- 29 [ ] CKD Stage 5 Kidney failure; requiring dialysis or transplantation < 15 [ ] ESRD Patient requiring dialysis for > 3 months or kidney transplant irrespective of level of GFR; Applicable for 1 year after kidney transplant [ ] Other: [ ] Comment/Explanation: Present on Admission: [ +] Yes [ ] No [ ] Clinically Undetermined Physician signature Date Please also document in your Progress Notes and/or Discharge Summary and indicate if the condition was present on admission. MTDD
[2020-01-06] MEDS ORDERED: NS 500ML IVPB ONE (10:55)
[2020-01-06] MEDS ORDERED: Propofol 200mg/20ml IV ONE (11:00)
--- NOTE | 2020-01-06 11:17 | Anethesia Preoperative Eval ---
Anesthesia Pre-op PMH/ROS General Date of Evaluation: Jan 06, 2020 Time of Evaluation: 10:46 Anesthesiologist: Pratima ASA Score: ASA 3 Mallampati Score Class I : Soft palate, uvula, fauces, pillars visible Class II: Soft palate, uvula, fauces visible Class III: Soft palate, base of uvula visible Class IV: Only hard plate visible Mallampati Classification: Class II Surgeon: Radha Diagnosis: Anemia Surgical Procedure: EGD Colonoscopy Anesthesia History: none Family History: no anesthesia problems Allergies: Coded Allergies: No Known Allergies (Unverified , 12/31/19) Medications: see eMAR Patient NPO?: Yes Past Medical History Cardiovascular: Reports: HTN; Denies: CAD, [place], valve dz, arrhythmia, other Pulmonary: Denies: asthma, COPD, [place]AG[place], other Gastrointestinal/Genitourinary: Reports: GERD, CRI; Denies: ESRD, other Neurologic/Psychiatric: Reports: depression/anxiety; Denies: dementia, CVA, TIA, other Endocrine: Reports: hypothyroidism; Denies: DM, steroids, other HEENT: Denies: cataract (L), cataract (R), glaucoma, [place] (L), [place] (R), other Hematology/Immune: Reports: anemia; Denies: DVT, bleeding disorder, other Musculoskeletal/Integumentary: Reports: OA; Denies: RA, DJD, DDD, edema, other Other: other - significant weight loss PMH Narrative: as above PSxH Narrative: see H&P Anesthesia Pre-op Phys. Exam Physician Exam Last Vital Signs Date Time Temp Pulse Resp B/P (MAP) Pulse Ox O2 Delivery O2 Flow Rate FiO2 01/06/20 09:00 Room Air 01/06/20 09:00 67 158/71 01/06/20 08:00 98.0 18 93 Constitutional: NAD Neurologic: CN 2-12 intact Cardiovascular: RRR, no M/R/G Respiratory: CTA Gastrointestinal: S/NT/ND Airway Exam Mallampati Score: Class II MO: limited Neck: stiff ROM: limited Teeth: missing Dentures: no upper, no lower Anesthesia Pre-op A/P Labs Hematology Test 01/06/20 05:20 White Blood Count 9.2 K/UL (4.8-10.8) Red Blood Count 3.95 M/UL (4.20-5.40) L Hemoglobin 9.6 G/DL (12.0-16.0) L Hematocrit 30.0 % (37.0-47.0) L Mean Corpuscular Volume 76 FL (80-99) L Mean Corpuscular Hemoglobin 24.2 PG (27.0-31.0) L Mean Corpuscular Hemoglobin Concent 31.8 G/DL (32.0-36.0) L Red Cell Distribution Width 16.6 % (11.6-14.8) H Platelet Count 299 K/UL (150-450) Mean Platelet Volume 5.2 FL (6.5-10.1) L Neutrophils (%) (Auto) 65.0 % (45.0-75.0) Lymphocytes (%) (Auto) 22.3 % (20.0-45.0) Monocytes (%) (Auto) 8.0 % (1.0-10.0) Eosinophils (%) (Auto) 3.9 % (0.0-3.0) H Basophils (%) (Auto) 0.8 % (0.0-2.0) Chemistry Test 01/06/20 05:20 Sodium Level 143 MMOL/L (136-145) Potassium Level 4.5 MMOL/L (3.5-5.1) Chloride Level 109 MMOL/L (98-107) H Carbon Dioxide Level 20 MMOL/L (21-32) L Anion Gap 14 mmol/L (5-15) Blood Urea Nitrogen 84 mg/dL (7-18) H Creatinine 4.1 MG/DL (0.55-1.30) H Estimat Glomerular Filtration Rate 13.1 mL/min (>60) Glucose Level 88 MG/DL (74-106) Uric Acid 7.3 MG/DL (2.6-7.2) H Calcium Level 9.5 MG/DL (8.5-10.1) Phosphorus Level 4.1 MG/DL (2.5-4.9) Total Bilirubin 0.3 MG/DL (0.2-1.0) Aspartate Amino Transf (AST/SGOT) 26 U/L (15-37) Alanine Aminotransferase (ALT/SGPT) 22 U/L (12-78) Alkaline Phosphatase 104 U/L (46-116) C-Reactive Protein, Quantitative 11.4 mg/dL (0.00-0.90) H Pro-B-Type Natriuretic Peptide 608 pg/mL (0-125) H Total Protein 8.5 G/DL (6.4-8.2) H Albumin 3.0 G/DL (3.4-5.0) L Globulin 5.5 g/dL Albumin/Globulin Ratio 0.5 (1.0-2.7) L Risk Assessment & Plan Assessment: ASA 3 Plan: MAC Status Change Before Surgery: Srinath Harper MD Jan 06, 2020 11:17
--- NOTE | 2020-01-06 11:21 | Endoscopy Procedure Note ---
Endoscopy Procedure Note General Indication for Procedure: anemia Procedures Performed: EGD, colonoscopy Operative Findings/Diagnosis: gastritis, 3 polyps Specimen: yes Pt Tolerated Procedure Well: Yes Estimated Blood Loss: none Anesthesia Anesthesiologist: harsh Anesthesia: MAC Inserted Devices Implant(s) used?: No GI Core Measures 50 yrs or older w/o bx or poly: Not Applicable 10yrs. F/U recommended: Not Applicable Todd Garcia MD Jan 06, 2020 11:21
--- NOTE | 2020-01-06 11:30 | Immediate Post-Op Evaluation ---
Immediate Post-Op Evalulation Immediate Post-Op Evalulation Procedure: EGD Colonoscopy Date of Evaluation: Jan 06, 2020 Time of Evaluation: 11:29 IV Fluids: 300 Blood Products: none Estimated Blood Loss: none Urinary Output: none Blood Pressure Systolic: 129 Blood Pressure Diastolic: 76 Pulse Rate: 68 Respiratory Rate: 20 O2 Sat by Pulse Oximetry: 99 Temperature (Fahrenheit): 97.6 Pain Score (1-10): 1 Nausea: No Vomiting: No Complications none Patient Status: awake, patent, none Srinath Andujar MD Jan 06, 2020 11:30
--- NOTE | 2020-01-06 12:20 | Pulmonology Progress Note ---
Assessment/Plan Problems: (1) Symptomatic anemia (2) Musculoskeletal chest pain (3) Acute on chronic renal insufficiency (4) History of hypertension (5) Hypothyroidism (6) CAD (coronary artery disease) (7) Hypertensive kidney disease Assessment/Plan symptomatic treatment with Lidocaine patch and Flexeri for colonoscopy and GED today f/u renal recommendation echo reviewed, EF is 60-65% monitor BP titrate cardiac meds if needed. Subjective ROS Limited/Unobtainable: No Constitutional: Reports: no symptoms HEENT: Repors: no symptoms Respiratory: Reports: no symptoms Allergies: Coded Allergies: No Known Allergies (Unverified , 12/31/19) Objective Last 24 Hour Vital Signs Date Time Temp Pulse Resp B/P (MAP) Pulse Ox O2 Delivery O2 Flow Rate FiO2 01/06/20 11:55 97.2 63 15 132/57 99 Room Air 01/06/20 11:45 60 18 140/56 99 Room Air 01/06/20 11:35 66 20 128/51 100 Nasal Cannula 3 01/06/20 11:30 68 17 142/51 100 Nasal Cannula 3 01/06/20 11:30 68 20 99 01/06/20 11:28 98.2 65 17 140/71 100 Nasal Cannula 3 01/06/20 09:00 Room Air 01/06/20 09:00 67 158/71 01/06/20 08:00 98.0 67 18 158/71 (100) 93 01/06/20 05:33 162/79 01/06/20 04:00 98.0 63 18 162/79 (106) 94 01/06/20 00:00 98.1 81 20 157/82 (107) 94 01/05/20 21:00 Room Air 01/05/20 20:00 98.0 72 17 147/57 (87) 93 01/05/20 17:44 66 156/71 01/05/20 16:11 99.1 66 19 156/71 (99) 97 Intake and Output 01/05/20 01/06/20 19:00 07:00 Intake Total 480 ml Balance 480 ml Intake Oral 480 ml General Appearance: WD/WN HEENT: normocephalic Respiratory/Chest: chest wall non-tender, lungs clear, no respiratory distress Cardiovascular: normal peripheral pulses, normal rate Abdomen: soft, non tender, no mass Extremities: no cyanosis Skin: no lesions Laboratory Tests 2/19/20 05:20: White Blood Count 9.2, Red Blood Count 3.95L, Hemoglobin 9.6L, Hematocrit 30.0L , Mean Corpuscular Volume 76L, Mean Corpuscular Hemoglobin 24.2L, Mean Corpuscular Hemoglobin Concent 31.8L, Red Cell Distribution Width 16.6H, Platelet Count 299, Mean Platelet Volume 5.2L, Neutrophils (%) (Auto) 65.0, Lymphocytes (%) (Auto) 22.3, Monocytes (%) (Auto) 8.0, Eosinophils (%) (Auto) 3.9H, Basophils (%) (Auto) 0.8, Sodium Level 143, Potassium Level 4.5, Chloride Level 109H, Carbon Dioxide Level 20L, Anion Gap 14, Blood Urea Nitrogen 84H, Creatinine 4.1H, Estimat Glomerular Filtration Rate 13.1, Glucose Level 88, Uric Acid 7.3H, Calcium Level 9.5, Phosphorus Level 4.1, Total Bilirubin 0.3, Aspartate Amino Transf (AST/SGOT) 26, Alanine Aminotransferase (ALT/SGPT) 22, Alkaline Phosphatase 104, C-Reactive Protein, Quantitative 11.4H, Pro-B-Type Natriuretic Peptide 608H, Total Protein 8.5H, Albumin 3.0L, Globulin 5.5, Albumin/Globulin Ratio 0.5L Current Medications Medications (Trade) Dose Ordered Sig/Liam Route PRN Reason Start Time Stop Time Status Last Admin Dose Admin Acetaminophen (Tylenol) 650 mg Q4H PRN ORAL fever 01/05/20 12:56 02/04/20 12:55 Albuterol/ Ipratropium (Albuterol/ Ipratropium) 3 ml Q4H PRN HHN Shortness of Breath 01/05/20 12:57 01/10/20 12:56 Allopurinol (allopurinoL) 300 mg DAILY ORAL 01/06/20 09:00 02/03/20 08:59 01/06/20 09:00 Cyclobenzaprine HCl (Flexeril) 10 mg TIDPRN PRN ORAL Muscle Spasm 01/05/20 12:57 02/04/20 12:56 01/05/20 13:17 Dextrose (Dextrose 50%) 25 ml Q30M PRN IV Hypoglycemia 01/05/20 13:15 01/30/20 18:44 Dextrose (Dextrose 50%) 50 ml Q30M PRN IV Hypoglycemia 01/05/20 13:15 01/30/20 18:44 Dextrose/ Electrolytes 1,000 ml @ 75 mls/hr [id number] IV 01/05/20 16:00 02/04/20 15:59 01/06/20 05:33 Docusate Sodium (Colace) 100 mg THREE TIMES A DAY ORAL 01/05/20 13:00 01/31/20 12:59 Epoetin Jose Ramon (Epoetin Jose Ramon-EPBX(NON ESRD)) 10,000 unit SAT-SAT-SAT SUBQ 01/06/20 21:00 02/03/20 20:59 Folic Acid (Folate) 2 mg DAILY ORAL 01/06/20 09:00 01/31/20 10:14 Hydralazine HCl (Apresoline) 25 mg Q4H PRN ORAL bp over 160 syst 01/05/20 12:58 02/04/20 12:57 01/06/20 05:33 Iron Sucrose 100 mg/Sodium Chloride 55 ml @ 200 mls/hr BEDTIME IV 01/05/20 21:00 01/10/20 21:17 01/05/20 21:50 Levothyroxine Sodium (Synthroid) 100 mcg Q24H ORAL 01/06/20 06:30 02/01/20 06:29 01/06/20 05:33 Levothyroxine Sodium (Synthroid) 125 mcg DAILY@0630 ORAL 01/06/20 06:30 02/01/20 06:29 01/06/20 05:33 Lidocaine (Xylocaine 5% cream) 1 applic DAILY TOPIC 01/05/20 15:00 02/04/20 14:59 01/06/20 10:33 Nifedipine (Procardia XL) 60 mg BID ORAL 01/05/20 18:00 02/02/20 08:59 01/06/20 09:00 Ondansetron HCl (Zofran) 4 mg Q6H PRN IVP Nausea & Vomiting 01/05/20 12:58 02/04/20 12:57 Pantoprazole (Protonix) 40 mg EVERY 12 HOURS ORAL 01/05/20 21:00 01/31/20 20:59 01/05/20 21:49 Polyethylene Glycol (Miralax) 17 gm HSPRN PRN ORAL Constipation 01/05/20 13:00 02/04/20 12:59 Zolpidem Tartrate (Ambien) 5 mg HSPRN PRN ORAL Insomnia 01/05/20 18:45 01/07/20 18:44 Bean Gil MD Jan 06, 2020 12:20
--- NOTE | 2020-01-06 12:34 | 48 Hour Post Anesthesia Eval ---
Post Anesthesia Evaluation Procedure: EGD Colonoscopy Date of Evaluation: Jan 06, 2020 Time of Evaluation: 12:33 Blood Pressure Systolic: 116 0: 72 Pulse Rate: 68 Respiratory Rate: 20 Temperature (Fahrenheit): 97.6 O2 Sat by Pulse Oximetry: 98 Airway: patent Nausea: No Vomiting: No Pain Intensity: 1 Hydration Status: adequate Cardiopulmonary Status: stable Mental Status/LOC: patient returned to baseline Follow-up Care/Observations: n/a Post-Anesthesia Complications: none Follow-up care needed: N/A Srinath Andujar MD Jan 06, 2020 12:34
[2020-01-06] MEDS ORDERED: fentaNYL 100 mcg/2 mL IV ONE (13:52)
--- NOTE | 2020-01-06 14:23 | Nephrology Progress Note ---
Assessment/Plan Problem List: (1) Acute on chronic renal insufficiency (2) History of hypertension (3) Anemia in chronic kidney disease (CKD) (4) Hypertensive kidney disease (5) Breast cancer Assessment Acute renal failure- ? CKD underlying- Severe Anemia- Low MCV HypoThyroid h/o Breast Ca . Plan Cr 4.1 not changed Iron panel- Low Iron IV Iron Allopurinol EPO SQ Keep BP in check Avoid Nephrotoxics 2D echo 60% folic acid Kidney [facility] Medical renal disease. Left kidney somewhat limited in evaluation. 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 CT may be confirmatory. Subjective ROS Limited/Unobtainable: No Constitutional: Reports: malaise Objective Objective Last 24 Hour Vital Signs Date Time Temp Pulse Resp B/P (MAP) Pulse Ox O2 Delivery O2 Flow Rate FiO2 01/06/20 12:34 172/73 01/06/20 12:34 68 20 98 01/06/20 11:55 97.2 63 15 132/57 99 Room Air 01/06/20 11:45 60 18 140/56 99 Room Air 01/06/20 11:35 66 20 128/51 100 Nasal Cannula 3 01/06/20 11:30 68 17 142/51 100 Nasal Cannula 3 01/06/20 11:30 68 20 99 01/06/20 11:28 98.2 65 17 140/71 100 Nasal Cannula 3 01/06/20 09:00 Room Air 01/06/20 09:00 67 158/71 01/06/20 08:00 98.0 67 18 158/71 (100) 93 01/06/20 05:33 162/79 01/06/20 04:00 98.0 63 18 162/79 (106) 94 01/06/20 00:00 98.1 81 20 157/82 (107) 94 01/05/20 21:00 Room Air 01/05/20 20:00 98.0 72 17 147/57 (87) 93 01/05/20 17:44 66 156/71 01/05/20 16:11 99.1 66 19 156/71 (99) 97 Intake and Output 01/05/20 01/06/20 19:00 07:00 Intake Total 480 ml Balance 480 ml Intake Oral 480 ml Current Medications Medications (Trade) Dose Ordered Sig/Liam Route PRN Reason Start Time Stop Time Status Last Admin Dose Admin Acetaminophen (Tylenol) 650 mg Q4H PRN ORAL fever 01/05/20 12:56 02/04/20 12:55 Albuterol/ Ipratropium (Albuterol/ Ipratropium) 3 ml Q4H PRN HHN Shortness of Breath 01/05/20 12:57 01/10/20 12:56 Allopurinol (allopurinoL) 300 mg DAILY ORAL 01/06/20 09:00 02/03/20 08:59 01/06/20 09:00 Cyclobenzaprine HCl (Flexeril) 10 mg TIDPRN PRN ORAL Muscle Spasm 01/05/20 12:57 02/04/20 12:56 01/05/20 13:17 Dextrose (Dextrose 50%) 25 ml Q30M PRN IV Hypoglycemia 01/05/20 13:15 01/30/20 18:44 Dextrose (Dextrose 50%) 50 ml Q30M PRN IV Hypoglycemia 01/05/20 13:15 01/30/20 18:44 Dextrose/ Electrolytes 1,000 ml @ 75 mls/hr [id number] IV 01/05/20 16:00 02/04/20 15:59 01/06/20 05:33 Docusate Sodium (Colace) 100 mg THREE TIMES A DAY ORAL 01/05/20 13:00 01/31/20 12:59 Epoetin Jose Ramon (Epoetin Jose Ramon-EPBX(NON ESRD)) 10,000 unit SAT-SAT-SAT SUBQ 01/06/20 21:00 02/03/20 20:59 Folic Acid (Folate) 2 mg DAILY ORAL 01/06/20 09:00 01/31/20 10:14 Hydralazine HCl (Apresoline) 25 mg Q4H PRN ORAL bp over 160 syst 01/05/20 12:58 02/04/20 12:57 01/06/20 12:34 Iron Sucrose 100 mg/Sodium Chloride 55 ml @ 200 mls/hr BEDTIME IV 01/05/20 21:00 01/10/20 21:17 01/05/20 21:50 Levothyroxine Sodium (Synthroid) 100 mcg Q24H ORAL 01/06/20 06:30 02/01/20 06:29 01/06/20 05:33 Levothyroxine Sodium (Synthroid) 125 mcg DAILY@0630 ORAL 01/06/20 06:30 02/01/20 06:29 01/06/20 05:33 Lidocaine (Xylocaine 5% cream) 1 applic DAILY TOPIC 01/05/20 15:00 02/04/20 14:59 01/06/20 10:33 Nifedipine (Procardia XL) 60 mg BID ORAL 01/05/20 18:00 02/02/20 08:59 01/06/20 09:00 Ondansetron HCl (Zofran) 4 mg Q6H PRN IVP Nausea & Vomiting 01/05/20 12:58 02/04/20 12:57 Pantoprazole (Protonix) 40 mg EVERY 12 HOURS ORAL 01/05/20 21:00 01/31/20 20:59 01/05/20 21:49 Polyethylene Glycol (Miralax) 17 gm HSPRN PRN ORAL Constipation 01/05/20 13:00 02/04/20 12:59 Zolpidem Tartrate (Ambien) 5 mg HSPRN PRN ORAL Insomnia 01/05/20 18:45 01/07/20 18:44 Laboratory Tests 01/06/20 05:20: White Blood Count 9.2, Red Blood Count 3.95L, Hemoglobin 9.6L, Hematocrit 30.0L , Mean Corpuscular Volume 76L, Mean Corpuscular Hemoglobin 24.2L, Mean Corpuscular Hemoglobin Concent 31.8L, Red Cell Distribution Width 16.6H, Platelet Count 299, Mean Platelet Volume 5.2L, Neutrophils (%) (Auto) 65.0, Lymphocytes (%) (Auto) 22.3, Monocytes (%) (Auto) 8.0, Eosinophils (%) (Auto) 3.9H, Basophils (%) (Auto) 0.8, Sodium Level 143, Potassium Level 4.5, Chloride Level 109H, Carbon Dioxide Level 20L, Anion Gap 14, Blood Urea Nitrogen 84H, Creatinine 4.1H, Estimat Glomerular Filtration Rate 13.1, Glucose Level 88, Uric Acid 7.3H, Calcium Level 9.5, Phosphorus Level 4.1, Total Bilirubin 0.3, Aspartate Amino Transf (AST/SGOT) 26, Alanine Aminotransferase (ALT/SGPT) 22, Alkaline Phosphatase 104, C-Reactive Protein, Quantitative 11.4H, Pro-B-Type Natriuretic Peptide 608H, Total Protein 8.5H, Albumin 3.0L, Globulin 5.5, Albumin/Globulin Ratio 0.5L Height (Feet): 5 Height (Inches): 4.00 Weight (Pounds): 182 General Appearance: no apparent distress Cardiovascular: normal rate Respiratory/Chest: decreased breath sounds Abdomen: soft Objective no change Iggy Springer MD Jan 06, 2020 14:23
--- NOTE | 2020-01-06 17:30 | Procedure Note ---
DATE OF PROCEDURE: 01/06/2020 SURGEON: Todd Garcia M.D. REFERRING PHYSICIAN: Avila Gaspar M.D. PROCEDURE: Upper endoscopy with biopsy and colonoscopy with biopsy. ANESTHESIA: Per Dr. Andujar. INSTRUMENT: Olympus adult flexible upper endoscope and colonoscope. INDICATIONS: 1. Stool OB positive. 2. Anemia. REASON FOR PROCEDURE: The procedure, risks, benefits, and possible consequences, including hemorrhage, aspiration, perforation and infection, and alternative treatments, were explained to the patient/legal guardian by Dr. Todd Garcia and the patient/legal guardian understood and accepted these risks. PROCEDURE IN DETAIL: After informed consent was obtained and the patient was adequately sedated, Olympus upper endoscope was advanced from mouth into the second portion of the duodenum and retroflexion was performed in the stomach. The patient has some atrophic gastritis. Random biopsy from antrum was obtained to rule out H. pylori infection. At this time, the upper endoscope was retrieved and the patient was turned over for colonoscopy. First, rectal exam was performed, which was positive for internal hemorrhoids. Then, the scope was advanced from rectum to the cecum documented by appendix orifice, ileocecal valve, and right upper quadrant palpation. Quality though was good except for the cecum. Examination of cecum was limited given the prep. The patient had total of three diminutive polyps in the rectosigmoid area, all three removed with the cold biopsy forceps technique. No obvious any evidence of the lower gastrointestinal bleeding. No diverticulosis. No mass was seen. Retroflexion of rectum showed evidence of internal hemorrhoids. SUMMARY OF FINDINGS: 1. Atrophic gastritis, status post biopsy. 2. Three colonic polyps removed. See above for details. 3. Internal hemorrhoids. RECOMMENDATIONS: Follow up pathology given three polyps. We recommend repeat colonoscopy in three years. I want to thank Dr. Avila Gaspar for this kind referral. Todd Garcia M.D. DR: NIGHAT JOB#: [id number] CC:
--- NOTE | 2020-01-06 19:21 | Internal Med Progress Note ---
Subjective Date of Service: Jan 06, 2020 Physician Name Josué Jenkins Attending Physician Avila Gaspar MD Current Medications Medications (Trade) Dose Ordered Sig/Liam Route PRN Reason Start Time Stop Time Status Last Admin Dose Admin Acetaminophen (Tylenol) 650 mg Q4H PRN ORAL fever 01/05/20 12:56 02/04/20 12:55 Albuterol/ Ipratropium (Albuterol/ Ipratropium) 3 ml Q4H PRN HHN Shortness of Breath 01/05/20 12:57 01/10/20 12:56 Allopurinol (allopurinoL) 300 mg DAILY ORAL 01/06/20 09:00 02/03/20 08:59 01/06/20 09:00 Cyclobenzaprine HCl (Flexeril) 10 mg TIDPRN PRN ORAL Muscle Spasm 01/05/20 12:57 02/04/20 12:56 01/05/20 13:17 Dextrose (Dextrose 50%) 25 ml Q30M PRN IV Hypoglycemia 01/05/20 13:15 01/30/20 18:44 Dextrose (Dextrose 50%) 50 ml Q30M PRN IV Hypoglycemia 01/05/20 13:15 01/30/20 18:44 Dextrose/ Electrolytes 1,000 ml @ 75 mls/hr [id number] IV 01/05/20 16:00 02/04/20 15:59 01/06/20 19:01 Docusate Sodium (Colace) 100 mg THREE TIMES A DAY ORAL 01/05/20 13:00 01/31/20 12:59 Epoetin Jose Ramon (Epoetin Jose Ramon-EPBX(NON ESRD)) 10,000 unit SAT-SAT-SAT SUBQ 01/06/20 21:00 02/03/20 20:59 Folic Acid (Folate) 2 mg DAILY ORAL 01/06/20 09:00 01/31/20 10:14 Hydralazine HCl (Apresoline) 25 mg Q4H PRN ORAL bp over 160 syst 01/05/20 12:58 02/04/20 12:57 01/06/20 12:34 Iron Sucrose 100 mg/Sodium Chloride 55 ml @ 200 mls/hr BEDTIME IV 01/05/20 21:00 01/10/20 21:17 01/05/20 21:50 Levothyroxine Sodium (Synthroid) 100 mcg Q24H ORAL 01/06/20 06:30 02/01/20 06:29 01/06/20 05:33 Levothyroxine Sodium (Synthroid) 125 mcg DAILY@0630 ORAL 01/06/20 06:30 02/01/20 06:29 01/06/20 05:33 Lidocaine (Xylocaine 5% cream) 1 applic DAILY TOPIC 01/05/20 15:00 02/04/20 14:59 01/06/20 10:33 Nifedipine (Procardia XL) 60 mg BID ORAL 01/05/20 18:00 02/02/20 08:59 01/06/20 09:00 Ondansetron HCl (Zofran) 4 mg Q6H PRN IVP Nausea & Vomiting 01/05/20 12:58 02/04/20 12:57 Pantoprazole (Protonix) 40 mg EVERY 12 HOURS ORAL 01/05/20 21:00 01/31/20 20:59 01/05/20 21:49 Polyethylene Glycol (Miralax) 17 gm HSPRN PRN ORAL Constipation 01/05/20 13:00 02/04/20 12:59 Zolpidem Tartrate (Ambien) 5 mg HSPRN PRN ORAL Insomnia 01/05/20 18:45 01/07/20 18:44 Allergies: Coded Allergies: No Known Allergies (Unverified , 12/31/19) ROS Limited/Unobtainable: No Constitutional: Reports: no symptoms HEENT: Reports: no symptoms Cardiovascular: Reports: no symptoms Respiratory: Reports: no symptoms Gastrointestinal/Abdominal: Reports: no symptoms Genitourinary: Reports: no symptoms Neurologic/Psychiatric: Reports: no symptoms Subjective 69 YO F admitted with fatigue, now severe anemia. Cover for Int Jose-Dr Gaspar. S /P Colonoscopy and endoscopy 01/06/20 Objective Last Vital Signs Date Time Temp Pulse Resp B/P (MAP) Pulse Ox O2 Delivery O2 Flow Rate FiO2 01/06/20 16:00 98.6 60 19 107/77 (87) 97 01/06/20 11:55 Room Air 01/06/20 11:35 3 Laboratory Tests Test 01/06/20 05:20 White Blood Count 9.2 K/UL (4.8-10.8) Red Blood Count 3.95 M/UL (4.20-5.40) L Hemoglobin 9.6 G/DL (12.0-16.0) L Hematocrit 30.0 % (37.0-47.0) L Mean Corpuscular Volume 76 FL (80-99) L Mean Corpuscular Hemoglobin 24.2 PG (27.0-31.0) L Mean Corpuscular Hemoglobin Concent 31.8 G/DL (32.0-36.0) L Red Cell Distribution Width 16.6 % (11.6-14.8) H Platelet Count 299 K/UL (150-450) Mean Platelet Volume 5.2 FL (6.5-10.1) L Neutrophils (%) (Auto) 65.0 % (45.0-75.0) Lymphocytes (%) (Auto) 22.3 % (20.0-45.0) Monocytes (%) (Auto) 8.0 % (1.0-10.0) Eosinophils (%) (Auto) 3.9 % (0.0-3.0) H Basophils (%) (Auto) 0.8 % (0.0-2.0) Sodium Level 143 MMOL/L (136-145) Potassium Level 4.5 MMOL/L (3.5-5.1) Chloride Level 109 MMOL/L (98-107) H Carbon Dioxide Level 20 MMOL/L (21-32) L Anion Gap 14 mmol/L (5-15) Blood Urea Nitrogen 84 mg/dL (7-18) H Creatinine 4.1 MG/DL (0.55-1.30) H Estimat Glomerular Filtration Rate 13.1 mL/min (>60) Glucose Level 88 MG/DL (74-106) Uric Acid 7.3 MG/DL (2.6-7.2) H Calcium Level 9.5 MG/DL (8.5-10.1) Phosphorus Level 4.1 MG/DL (2.5-4.9) Total Bilirubin 0.3 MG/DL (0.2-1.0) Aspartate Amino Transf (AST/SGOT) 26 U/L (15-37) Alanine Aminotransferase (ALT/SGPT) 22 U/L (12-78) Alkaline Phosphatase 104 U/L (46-116) C-Reactive Protein, Quantitative 11.4 mg/dL (0.00-0.90) H Pro-B-Type Natriuretic Peptide 608 pg/mL (0-125) H Total Protein 8.5 G/DL (6.4-8.2) H Albumin 3.0 G/DL (3.4-5.0) L Globulin 5.5 g/dL Albumin/Globulin Ratio 0.5 (1.0-2.7) L Intake and Output 01/05/20 01/06/20 19:00 07:00 Intake Total 480 ml Balance 480 ml Intake Oral 480 ml Objective PHYSICAL EXAMINATION: GENERAL: The patient is awake, responsive, and in no acute distress. HEAD AND NECK: Pupils are equal and reactive to light. Extraocular movements intact. NECK: Supple. No JVD. LUNGS: Good air entry. No wheeze or rales. HEART: S1, S2. Regular rhythm. No murmur or gallops. ABDOMEN: Soft, nondistended, and nontender. Positive bowel sounds. EXTREMITIES: No cyanosis, clubbing, or edema. NEUROLOGIC: Cranial nerves II through XII grossly intact. RECTAL: Refused and deferred. GENITOURINARY: Refused and deferred. PSYCHIATRIC: Mood and affect is intact. Assessment/Plan Assessment/Plan ASSESSMENT: 1. Severe symptomatic anemia, possible due to anemia of chronic disease; however, cannot rule out GI etiology. 2. Hypothyroidism. 3. Folic acid deficiency. 4. Hypertension. 5. Coronary artery disease. 6. Acute kidney injury on chronic renal insufficiency. 7. History of breast cancer. 8. occult blood positive 9. Gastritis PLAN: 1. Admit the patient to medical floor. We will follow up with the 2. Code status is Full Code. 3. S/P transfusion 1 unit PRBC on 12/31/19 4. Nephrology =Dr Springer 5. Pulmonary consultation=Dr Gil. 6. DVT prophylaxis, SCD. 7. S/P transfusion 2 unit PRBC 12/31/19 and 01/03/20 8. Anemia workup-GI=Dr Garcia. Stool for occult blood=positive; S/P colonoscopy and endoscopy 01/06/20 9. Protonix BID and carafate Josué Jenkins MD Jan 06, 2020 19:21
[2020-01-06] MEDS ORDERED: Epoetin Alfa-EPBX (NON ESRD)10,000 unit/ml vial SUBQ SCH (21:00)
[2020-01-06] MEDS: Sucralfate 1gm tab ORAL SCH (21:32)
[2020-01-07] VITALS: BP 123/76
[2020-01-07 04:00] VITALS: BP 152/78
[2020-01-07 06:44] LABS: BASOPHILS % (AUTO) 0.7 % (0.0-2.0); EOSINOPHILS % (AUTO) 3.9 % (0.0-3.0); HEMATOCRIT 27.6 % (37.0-47.0); HEMOGLOBIN 8.7 G/DL (12.0-16.0); LYMPHOCYTES % (AUTO) 19.4 % (20.0-45.0); MEAN CORPUSCULAR VOLUME 76 FL (80-99); MONOCYTES % (AUTO) 7.1 % (1.0-10.0); NEUTROPHILS % (AUTO) 68.9 % (45.0-75.0); PLATELET COUNT 303 K/UL (150-450); RED BLOOD COUNT 3.61 M/UL (4.20-5.40); WHITE BLOOD COUNT 9.2 K/UL (4.8-10.8)
[2020-01-07] MEDS: Levothyroxine 125mcg tab ORAL SCH (06:58)
[2020-01-07 07:00] LABS: ANION GAP 13 mmol/L (5-15); BLOOD UREA NITROGEN 76 mg/dL (7-18); CALCIUM 9.1 MG/DL (8.5-10.1); CARBON DIOXIDE 19 MMOL/L (21-32); CHLORIDE 109 MMOL/L (98-107); POTASSIUM 4.8 MMOL/L (3.5-5.1); SODIUM 141 MMOL/L (136-145)
[2020-01-07 08:00] VITALS: BP 154/69
[2020-01-07] MEDS: D5 1/2NS w/KCl 20mEq 1,000 ML IV SCH (08:00)
[2020-01-07] MEDS: Docusate 100mg cap ORAL SCH ×3 (09:00→18:00)
--- NOTE | 2020-01-07 09:00 | Nephrology Progress Note ---
Assessment/Plan Problem List: (1) Acute on chronic renal insufficiency (2) History of hypertension (3) Anemia in chronic kidney disease (CKD) (4) Hypertensive kidney disease (5) Breast cancer Assessment Acute renal failure- ? CKD underlying- Severe Anemia- Low MCV HypoThyroid h/o Breast Ca . Plan Cr 4.1 not changed Iron panel- Low Iron IV Iron Allopurinol EPO SQ Keep BP in check Avoid Nephrotoxics 2D echo 60% folic acid Kidney [facility] Medical renal disease. Left kidney somewhat limited in evaluation. 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 CT may be confirmatory. Subjective ROS Limited/Unobtainable: No Constitutional: Reports: malaise Objective Objective Last 24 Hour Vital Signs Date Time Temp Pulse Resp B/P (MAP) Pulse Ox O2 Delivery O2 Flow Rate FiO2 01/07/20 04:00 98.9 84 20 152/78 (102) 95 01/07/20 00:00 97.5 74 19 123/76 (92) 97 01/06/20 21:00 Room Air 01/06/20 20:00 97.6 75 19 125/78 (94) 98 01/06/20 18:00 60 107/77 01/06/20 16:00 98.6 60 19 107/77 (87) 97 01/06/20 12:34 172/73 01/06/20 12:34 68 20 98 01/06/20 11:55 97.2 63 15 132/57 99 Room Air 01/06/20 11:45 60 18 140/56 99 Room Air 01/06/20 11:35 66 20 128/51 100 Nasal Cannula 3 01/06/20 11:30 68 17 142/51 100 Nasal Cannula 3 01/06/20 11:30 68 20 99 01/06/20 11:28 98.2 65 17 140/71 100 Nasal Cannula 3 Intake and Output 01/06/20 01/07/20 19:00 07:00 Intake Total 520 ml 1140 ml Balance 520 ml 1140 ml Intake Oral 240 ml 240 ml IV Total 280 ml 900 ml # Voids 1 3 # Bowel Movements 1 Current Medications Medications (Trade) Dose Ordered Sig/Liam Route PRN Reason Start Time Stop Time Status Last Admin Dose Admin Acetaminophen (Tylenol) 650 mg Q4H PRN ORAL fever 01/05/20 12:56 02/04/20 12:55 Albuterol/ Ipratropium (Albuterol/ Ipratropium) 3 ml Q4H PRN HHN Shortness of Breath 01/05/20 12:57 01/10/20 12:56 Allopurinol (allopurinoL) 300 mg DAILY ORAL 01/06/20 09:00 02/03/20 08:59 01/07/20 11:11 Cyclobenzaprine HCl (Flexeril) 10 mg TIDPRN PRN ORAL Muscle Spasm 01/05/20 12:57 02/04/20 12:56 01/05/20 13:17 Dextrose (Dextrose 50%) 25 ml Q30M PRN IV Hypoglycemia 01/05/20 13:15 01/30/20 18:44 Dextrose (Dextrose 50%) 50 ml Q30M PRN IV Hypoglycemia 01/05/20 13:15 01/30/20 18:44 Dextrose/ Electrolytes 1,000 ml @ 75 mls/hr [id number] IV 01/05/20 16:00 02/04/20 15:59 01/06/20 19:01 Docusate Sodium (Colace) 100 mg THREE TIMES A DAY ORAL 01/05/20 13:00 01/31/20 12:59 Epoetin Jose Ramon (Epoetin Jose Ramon-EPBX(NON ESRD)) 10,000 unit SAT-SAT-SAT SUBQ 01/06/20 21:00 02/03/20 20:59 01/06/20 21:32 Folic Acid (Folate) 2 mg DAILY ORAL 01/06/20 09:00 01/31/20 10:14 01/07/20 11:12 Hydralazine HCl (Apresoline) 25 mg Q4H PRN ORAL bp over 160 syst 01/05/20 12:58 02/04/20 12:57 01/06/20 12:34 Iron Sucrose 100 mg/Sodium Chloride 55 ml @ 200 mls/hr BEDTIME IV 01/05/20 21:00 01/10/20 21:17 01/06/20 21:32 Levothyroxine Sodium (Synthroid) 100 mcg Q24H ORAL 01/06/20 06:30 02/01/20 06:29 01/07/20 06:58 Levothyroxine Sodium (Synthroid) 125 mcg DAILY@0630 ORAL 01/06/20 06:30 02/01/20 06:29 01/07/20 06:58 Lidocaine (Xylocaine 5% cream) 1 applic DAILY TOPIC 01/05/20 15:00 02/04/20 14:59 01/07/20 11:15 Nifedipine (Procardia XL) 60 mg BID ORAL 01/05/20 18:00 02/02/20 08:59 01/07/20 11:14 Ondansetron HCl (Zofran) 4 mg Q6H PRN IVP Nausea & Vomiting 01/05/20 12:58 02/04/20 12:57 Pantoprazole (Protonix) 40 mg EVERY 12 HOURS ORAL 01/05/20 21:00 01/31/20 20:59 01/07/20 11:15 Polyethylene Glycol (Miralax) 17 gm HSPRN PRN ORAL Constipation 01/05/20 13:00 02/04/20 12:59 Sucralfate (Carafate) 1 gm FOUR TIMES A DAY ORAL 01/06/20 21:00 02/05/20 20:59 01/07/20 11:11 Zolpidem Tartrate (Ambien) 5 mg HSPRN PRN ORAL Insomnia 01/05/20 18:45 01/07/20 18:44 Laboratory Tests 01/07/20 05:05: White Blood Count 9.2, Red Blood Count 3.61L, Hemoglobin 8.7L, Hematocrit 27.6L , Mean Corpuscular Volume 76L, Mean Corpuscular Hemoglobin 24.1L, Mean Corpuscular Hemoglobin Concent 31.5L, Red Cell Distribution Width 17.0H, Platelet Count 303, Mean Platelet Volume 5.2L, Neutrophils (%) (Auto) 68.9, Lymphocytes (%) (Auto) 19.4L, Monocytes (%) (Auto) 7.1, Eosinophils (%) (Auto) 3.9H, Basophils (%) (Auto) 0.7, Sodium Level 141, Potassium Level 4.8, Chloride Level 109H, Carbon Dioxide Level 19L, Anion Gap 13, Blood Urea Nitrogen 76H, Creatinine 4.0H, Estimat Glomerular Filtration Rate 13.5, Glucose Level 117H, Calcium Level 9.1 Height (Feet): 5 Height (Inches): 4.00 Weight (Pounds): 182 General Appearance: no apparent distress, lethargic Cardiovascular: normal rate Respiratory/Chest: lungs clear Abdomen: soft Objective no change Iggy Springer MD Jan 07, 2020 09:00
--- NOTE | 2020-01-07 09:30 | Consultation ---
DATE OF CONSULTATION: 01/05/2020 ENDOCRINOLOGY CONSULTATION CONSULTING PHYSICIAN: Stephen Gardner M.D. REFERRING PHYSICIAN: Bean Gil M.D. REASON FOR CONSULTATION: Hypothyroidism. HISTORY OF PRESENT ILLNESS: The patient is a 69-year-old female with history of hypothyroidism, chronic kidney disease, hypertension, coronary artery disease, as well as breast cancer, presented to the hospital with severe anemia. Seen and evaluated by livestock judging coach, Dr. Garcia, and a TSH was obtained, which was 16 and she is on levothyroxine 200 mcg as an outpatient. Endocrinology was called for evaluation of hypothyroidism. PAST MEDICAL HISTORY: 1. Hypothyroidism. 2. Chronic kidney disease. 3. Hypertension. 4. Coronary artery disease. 5. Breast cancer. ALLERGY TO MEDICATIONS: None. MEDICATIONS: Reviewed and reconciled. SOCIAL HISTORY: No smoking, alcohol, or drug use. FAMILY HISTORY: Noncontributory. REVIEW OF SYSTEMS: A 12-point review of systems was performed and pertinent positives and negatives are mentioned in the history of present illness. PHYSICAL EXAMINATION: GENERAL: The patient is alert and confused. VITAL SIGNS: Blood pressure is 160/80, pulse 70, temperature 98.2, respiratory rate 18. HEENT: Pupils are equal and reactive to light. Sclerae anicteric. NECK: No JVD. HEART: Regular. LUNGS: Clear. ABDOMEN: Positive bowel sounds. EXTREMITIES: No clubbing, cyanosis. Positive for edema. LABORATORY DATA: Sodium 142, potassium 4.1, chloride 109, bicarb 22, BUN 88, creatinine 4.1, hemoglobin A1c of 5.8. Uric acid 8.4. TSH of 16.8. DIAGNOSES: 1. Renal failure. 2. Symptomatic anemia. 3. Hypothyroidism, elevated TSH. DISCUSSION: The dosage of levothyroxine is already adjusted by admitting team from 200 to 225 mcg, I think is an appropriate adjustment. I concur with that. Thyroid function test will be repeated in about 3 to 4 weeks. thyroid hormone should be taken on empty stomach. Therefore, I will sign off on this consult. There are no other endocrine issues. Thank you, Dr. Gil, for the courtesy of this consultation. Stephen Nazemi, M.D. DR: PAULA JOB#: [id number] CC: DEYANIRA
--- NOTE | 2020-01-07 10:40 | GI Progress Note ---
Assessment/Plan Problems: (1) Anemia in chronic kidney disease (CKD) ICD Codes: N18.9 - Chronic kidney disease, unspecified; D63.1 - Anemia in chronic kidney disease SNOMED: 458524211 (2) Symptomatic anemia ICD Codes: D64.9 - Anemia, unspecified SNOMED: 173808439 Status: stable Status Narrative Discussed with Dr. Garcia. Assessment/Plan SUMMARY OF FINDINGS: 1. Atrophic gastritis, status post biopsy. 2. Three colonic polyps removed. See above for details. 3. Internal hemorrhoids. RECOMMENDATIONS: advance diet prn transfusions ppi Follow up pathology given three polyps. We recommend repeat colonoscopy in three years. dc planning per primary The patient was seen and examined at bedside and all new and available data was reviewed in the patients chart. I agree with the above findings, impression and plan. (Patient seen earlier today. Signature stamp does not reflect patient encounter time.). - Todd Garcia MD Subjective Gastrointestinal/Abdominal: Reports: no symptoms Objective Last 24 Hour Vital Signs Date Time Temp Pulse Resp B/P (MAP) Pulse Ox O2 Delivery O2 Flow Rate FiO2 01/07/20 04:00 98.9 84 20 152/78 (102) 95 01/07/20 00:00 97.5 74 19 123/76 (92) 97 01/06/20 21:00 Room Air 01/06/20 20:00 97.6 75 19 125/78 (94) 98 01/06/20 18:00 60 107/77 01/06/20 16:00 98.6 60 19 107/77 (87) 97 01/06/20 12:34 172/73 01/06/20 12:34 68 20 98 01/06/20 11:55 97.2 63 15 132/57 99 Room Air 01/06/20 11:45 60 18 140/56 99 Room Air 01/06/20 11:35 66 20 128/51 100 Nasal Cannula 3 01/06/20 11:30 68 17 142/51 100 Nasal Cannula 3 01/06/20 11:30 68 20 99 01/06/20 11:28 98.2 65 17 140/71 100 Nasal Cannula 3 Intake and Output 01/06/20 01/07/20 19:00 07:00 Intake Total 520 ml 1140 ml Balance 520 ml 1140 ml Intake Oral 240 ml 240 ml IV Total 280 ml 900 ml # Voids 1 3 # Bowel Movements 1 Laboratory Tests Test 01/07/20 05:05 White Blood Count 9.2 K/UL (4.8-10.8) Red Blood Count 3.61 M/UL (4.20-5.40) L Hemoglobin 8.7 G/DL (12.0-16.0) L Hematocrit 27.6 % (37.0-47.0) L Mean Corpuscular Volume 76 FL (80-99) L Mean Corpuscular Hemoglobin 24.1 PG (27.0-31.0) L Mean Corpuscular Hemoglobin Concent 31.5 G/DL (32.0-36.0) L Red Cell Distribution Width 17.0 % (11.6-14.8) H Platelet Count 303 K/UL (150-450) Mean Platelet Volume 5.2 FL (6.5-10.1) L Neutrophils (%) (Auto) 68.9 % (45.0-75.0) Lymphocytes (%) (Auto) 19.4 % (20.0-45.0) L Monocytes (%) (Auto) 7.1 % (1.0-10.0) Eosinophils (%) (Auto) 3.9 % (0.0-3.0) H Basophils (%) (Auto) 0.7 % (0.0-2.0) Sodium Level 141 MMOL/L (136-145) Potassium Level 4.8 MMOL/L (3.5-5.1) Chloride Level 109 MMOL/L (98-107) H Carbon Dioxide Level 19 MMOL/L (21-32) L Anion Gap 13 mmol/L (5-15) Blood Urea Nitrogen 76 mg/dL (7-18) H Creatinine 4.0 MG/DL (0.55-1.30) H Estimat Glomerular Filtration Rate 13.5 mL/min (>60) Glucose Level 117 MG/DL (74-106) H Calcium Level 9.1 MG/DL (8.5-10.1) Height (Feet): 5 Height (Inches): 4.00 Weight (Pounds): 182 General Appearance: WD/WN, no apparent distress, alert Cardiovascular: normal rate Respiratory/Chest: normal breath sounds, no respiratory distress Abdominal Exam: normal bowel sounds, non tender, soft Extremities: normal range of motion, non-tender Eran Perea NP Jan 07, 2020 10:40
[2020-01-07] MEDS: Sucralfate 1gm tab ORAL SCH ×4 (11:11→21:40)
[2020-01-07 12:00] VITALS: BP 148/80
--- NOTE | 2020-01-07 12:21 | Pulmonology Progress Note ---
Assessment/Plan Problems: (1) GI bleeding (2) Symptomatic anemia (3) Musculoskeletal chest pain (4) Acute on chronic renal insufficiency (5) History of hypertension (6) Hypothyroidism (7) CAD (coronary artery disease) (8) Hypertensive kidney disease Assessment/Plan symptomatic treatment with Lidocaine patch and Flexeri GED showed gastritis and some colonic polyps were removed f/u renal recommendation echo reviewed, EF is 60-65% monitor BP PT/ot might need to go to a rehab facility Subjective ROS Limited/Unobtainable: No Interval Events: c/o depression, doesn't want to take any antidepressants Allergies: Coded Allergies: No Known Allergies (Unverified , 12/31/19) Objective Last 24 Hour Vital Signs Date Time Temp Pulse Resp B/P (MAP) Pulse Ox O2 Delivery O2 Flow Rate FiO2 01/07/20 11:14 71 154/69 01/07/20 04:00 98.9 84 20 152/78 (102) 95 01/07/20 00:00 97.5 74 19 123/76 (92) 97 01/06/20 21:00 Room Air 01/06/20 20:00 97.6 75 19 125/78 (94) 98 01/06/20 18:00 60 107/77 01/06/20 16:00 98.6 60 19 107/77 (87) 97 01/06/20 12:34 172/73 01/06/20 12:34 68 20 98 Intake and Output 01/06/20 01/07/20 18:59 06:59 Intake Total 520 ml 1065 ml Balance 520 ml 1065 ml Intake Oral 240 ml 240 ml IV Total 280 ml 825 ml # Voids 1 3 # Bowel Movements 1 General Appearance: WD/WN HEENT: normocephalic, atraumatic Respiratory/Chest: chest wall non-tender, lungs clear Cardiovascular: normal peripheral pulses, normal rate Abdomen: soft, non tender, non distended Genitourinary: normal external genitalia Skin: no rash Laboratory Tests 01/07/20 05:05: White Blood Count 9.2, Red Blood Count 3.61L, Hemoglobin 8.7L, Hematocrit 27.6L , Mean Corpuscular Volume 76L, Mean Corpuscular Hemoglobin 24.1L, Mean Corpuscular Hemoglobin Concent 31.5L, Red Cell Distribution Width 17.0H, Platelet Count 303, Mean Platelet Volume 5.2L, Neutrophils (%) (Auto) 68.9, Lymphocytes (%) (Auto) 19.4L, Monocytes (%) (Auto) 7.1, Eosinophils (%) (Auto) 3.9H, Basophils (%) (Auto) 0.7, Sodium Level 141, Potassium Level 4.8, Chloride Level 109H, Carbon Dioxide Level 19L, Anion Gap 13, Blood Urea Nitrogen 76H, Creatinine 4.0H, Estimat Glomerular Filtration Rate 13.5, Glucose Level 117H, Calcium Level 9.1 Current Medications Medications (Trade) Dose Ordered Sig/Liam Route PRN Reason Start Time Stop Time Status Last Admin Dose Admin Acetaminophen (Tylenol) 650 mg Q4H PRN ORAL fever 01/05/20 12:56 02/04/20 12:55 Albuterol/ Ipratropium (Albuterol/ Ipratropium) 3 ml Q4H PRN HHN Shortness of Breath 01/05/20 12:57 01/10/20 12:56 Allopurinol (allopurinoL) 300 mg DAILY ORAL 01/06/20 09:00 02/03/20 08:59 01/07/20 11:11 Cyclobenzaprine HCl (Flexeril) 10 mg TIDPRN PRN ORAL Muscle Spasm 01/05/20 12:57 02/04/20 12:56 01/05/20 13:17 Dextrose (Dextrose 50%) 25 ml Q30M PRN IV Hypoglycemia 01/05/20 13:15 01/30/20 18:44 Dextrose (Dextrose 50%) 50 ml Q30M PRN IV Hypoglycemia 01/05/20 13:15 01/30/20 18:44 Dextrose/ Electrolytes 1,000 ml @ 75 mls/hr [id number] IV 01/05/20 16:00 02/04/20 15:59 01/06/20 19:01 Docusate Sodium (Colace) 100 mg THREE TIMES A DAY ORAL 01/05/20 13:00 01/31/20 12:59 Epoetin Jose Ramon (Epoetin Jose Ramon-EPBX(NON ESRD)) 10,000 unit SAT-WED-SAT SUBQ 01/06/20 21:00 02/03/20 20:59 01/06/20 21:32 Folic Acid (Folate) 2 mg DAILY ORAL 01/06/20 09:00 01/31/20 10:14 01/07/20 11:12 Hydralazine HCl (Apresoline) 25 mg Q4H PRN ORAL bp over 160 syst 01/05/20 12:58 02/04/20 12:57 01/06/20 12:34 Iron Sucrose 100 mg/Sodium Chloride 55 ml @ 200 mls/hr BEDTIME IV 01/05/20 21:00 01/10/20 21:17 01/06/20 21:32 Levothyroxine Sodium (Synthroid) 100 mcg Q24H ORAL 01/06/20 06:30 02/01/20 06:29 01/07/20 06:58 Levothyroxine Sodium (Synthroid) 125 mcg DAILY@0630 ORAL 01/06/20 06:30 02/01/20 06:29 01/07/20 06:58 Lidocaine (Xylocaine 5% cream) 1 applic DAILY TOPIC 01/05/20 15:00 02/04/20 14:59 01/07/20 11:15 Nifedipine (Procardia XL) 60 mg BID ORAL 01/05/20 18:00 02/02/20 08:59 01/07/20 11:14 Ondansetron HCl (Zofran) 4 mg Q6H PRN IVP Nausea & Vomiting 01/05/20 12:58 02/04/20 12:57 Pantoprazole (Protonix) 40 mg EVERY 12 HOURS ORAL 01/05/20 21:00 01/31/20 20:59 01/07/20 11:15 Polyethylene Glycol (Miralax) 17 gm HSPRN PRN ORAL Constipation 01/05/20 13:00 02/04/20 12:59 Sucralfate (Carafate) 1 gm FOUR TIMES A DAY ORAL 01/06/20 21:00 02/05/20 20:59 01/07/20 11:11 Zolpidem Tartrate (Ambien) 5 mg HSPRN PRN ORAL Insomnia 01/05/20 18:45 01/07/20 18:44 Bean Gil MD Jan 07, 2020 12:21
[2020-01-07 16:00] VITALS: BP 154/71
--- NOTE | 2020-01-07 19:09 | Internal Med Progress Note ---
Subjective Date of Service: Jan 07, 2020 Physician Name Josué Jenkins Attending Physician Avila Gaspar MD Current Medications Medications (Trade) Dose Ordered Sig/Liam Route PRN Reason Start Time Stop Time Status Last Admin Dose Admin Acetaminophen (Tylenol) 650 mg Q4H PRN ORAL fever 01/05/20 12:56 02/04/20 12:55 Allopurinol (allopurinoL) 300 mg DAILY ORAL 01/06/20 09:00 02/03/20 08:59 01/07/20 11:11 Cyclobenzaprine HCl (Flexeril) 10 mg TIDPRN PRN ORAL Muscle Spasm 01/05/20 12:57 02/04/20 12:56 01/05/20 13:17 Dextrose (Dextrose 50%) 25 ml Q30M PRN IV Hypoglycemia 01/05/20 13:15 01/30/20 18:44 Dextrose (Dextrose 50%) 50 ml Q30M PRN IV Hypoglycemia 01/05/20 13:15 01/30/20 18:44 Docusate Sodium (Colace) 100 mg THREE TIMES A DAY ORAL 01/05/20 13:00 01/31/20 12:59 Epoetin Jose Ramon (Epoetin Jose Ramon-EPBX(NON ESRD)) 10,000 unit SAT-SAT-SAT SUBQ 01/06/20 21:00 02/03/20 20:59 01/06/20 21:32 Folic Acid (Folate) 2 mg DAILY ORAL 01/06/20 09:00 01/31/20 10:14 01/07/20 11:12 Hydralazine HCl (Apresoline) 25 mg Q4H PRN ORAL bp over 160 syst 01/05/20 12:58 02/04/20 12:57 01/06/20 12:34 Iron Sucrose 100 mg/Sodium Chloride 55 ml @ 200 mls/hr BEDTIME IV 01/05/20 21:00 01/10/20 21:17 01/06/20 21:32 Levothyroxine Sodium (Synthroid) 100 mcg Q24H ORAL 01/06/20 06:30 02/01/20 06:29 01/07/20 06:58 Levothyroxine Sodium (Synthroid) 125 mcg DAILY@0630 ORAL 01/06/20 06:30 02/01/20 06:29 01/07/20 06:58 Lidocaine (Xylocaine 5% cream) 1 applic DAILY TOPIC 01/05/20 15:00 02/04/20 14:59 01/07/20 11:15 Nifedipine (Procardia XL) 60 mg BID ORAL 01/05/20 18:00 02/02/20 08:59 01/07/20 18:51 Pantoprazole (Protonix) 40 mg EVERY 12 HOURS ORAL 01/05/20 21:00 01/31/20 20:59 01/07/20 11:15 Polyethylene Glycol (Miralax) 17 gm HSPRN PRN ORAL Constipation 01/05/20 13:00 02/04/20 12:59 Sucralfate (Carafate) 1 gm FOUR TIMES A DAY ORAL 01/06/20 21:00 02/05/20 20:59 01/07/20 18:49 Allergies: Coded Allergies: No Known Allergies (Unverified , 12/31/19) ROS Limited/Unobtainable: No Constitutional: Reports: no symptoms HEENT: Reports: no symptoms Cardiovascular: Reports: no symptoms Respiratory: Reports: no symptoms Gastrointestinal/Abdominal: Reports: no symptoms Genitourinary: Reports: no symptoms Neurologic/Psychiatric: Reports: no symptoms Subjective 69 YO F admitted with fatigue, now severe anemia. Cover for Int Med-Dr Gaspar. S /P Colonoscopy and endoscopy 01/06/20 Objective Last Vital Signs Date Time Temp Pulse Resp B/P (MAP) Pulse Ox O2 Delivery O2 Flow Rate FiO2 01/07/20 18:51 66 154/71 01/07/20 16:00 98.9 18 96 01/07/20 09:00 Room Air 01/06/20 11:35 3 Laboratory Tests Test 01/07/20 05:05 White Blood Count 9.2 K/UL (4.8-10.8) Red Blood Count 3.61 M/UL (4.20-5.40) L Hemoglobin 8.7 G/DL (12.0-16.0) L Hematocrit 27.6 % (37.0-47.0) L Mean Corpuscular Volume 76 FL (80-99) L Mean Corpuscular Hemoglobin 24.1 PG (27.0-31.0) L Mean Corpuscular Hemoglobin Concent 31.5 G/DL (32.0-36.0) L Red Cell Distribution Width 17.0 % (11.6-14.8) H Platelet Count 303 K/UL (150-450) Mean Platelet Volume 5.2 FL (6.5-10.1) L Neutrophils (%) (Auto) 68.9 % (45.0-75.0) Lymphocytes (%) (Auto) 19.4 % (20.0-45.0) L Monocytes (%) (Auto) 7.1 % (1.0-10.0) Eosinophils (%) (Auto) 3.9 % (0.0-3.0) H Basophils (%) (Auto) 0.7 % (0.0-2.0) Sodium Level 141 MMOL/L (136-145) Potassium Level 4.8 MMOL/L (3.5-5.1) Chloride Level 109 MMOL/L (98-107) H Carbon Dioxide Level 19 MMOL/L (21-32) L Anion Gap 13 mmol/L (5-15) Blood Urea Nitrogen 76 mg/dL (7-18) H Creatinine 4.0 MG/DL (0.55-1.30) H Estimat Glomerular Filtration Rate 13.5 mL/min (>60) Glucose Level 117 MG/DL (74-106) H Calcium Level 9.1 MG/DL (8.5-10.1) Intake and Output 01/06/20 01/07/20 19:00 07:00 Intake Total 520 ml 1140 ml Balance 520 ml 1140 ml Intake Oral 240 ml 240 ml IV Total 280 ml 900 ml # Voids 1 3 # Bowel Movements 1 Objective PHYSICAL EXAMINATION: GENERAL: The patient is awake, responsive, and in no acute distress. HEAD AND NECK: Pupils are equal and reactive to light. Extraocular movements intact. NECK: Supple. No JVD. LUNGS: Good air entry. No wheeze or rales. HEART: S1, S2. Regular rhythm. No murmur or gallops. ABDOMEN: Soft, nondistended, and nontender. Positive bowel sounds. EXTREMITIES: No cyanosis, clubbing, or edema. NEUROLOGIC: Cranial nerves II through XII grossly intact. RECTAL: Refused and deferred. GENITOURINARY: Refused and deferred. PSYCHIATRIC: Mood and affect is intact. Assessment/Plan Assessment/Plan ASSESSMENT: 1. Severe symptomatic anemia, possible due to anemia of chronic disease; however, cannot rule out GI etiology. 2. Hypothyroidism. 3. Folic acid deficiency. 4. Hypertension. 5. Coronary artery disease. 6. Acute kidney injury on chronic renal insufficiency. 7. History of breast cancer. 8. occult blood positive 9. Gastritis PLAN: 1. Admit the patient to medical floor. We will follow up with the 2. Code status is Full Code. 3. S/P transfusion 1 unit PRBC on 12/31/19 4. Nephrology =Dr Springer 5. Pulmonary consultation=Dr Gil. 6. DVT prophylaxis, SCD. 7. S/P transfusion 2 unit PRBC 12/31/19 and 01/03/20 8. Anemia workup-GI=Dr Garcia. Stool for occult blood=positive; S/P colonoscopy and endoscopy 01/06/20 9. Protonix BID and carafate 10. Discharge planning Josué Jenkins MD Jan 07, 2020 19:09
[2020-01-07 20:00] VITALS: BP 151/75
[2020-01-07 21:29] LABS: EOSINOPHILS % (AUTO) 4.5 % (0.0-3.0); HEMATOCRIT 26.1 % (37.0-47.0); HEMOGLOBIN 8.3 G/DL (12.0-16.0); LYMPHOCYTES % (AUTO) 22.4 % (20.0-45.0); MEAN CORPUSCULAR VOLUME 76 FL (80-99); NEUTROPHILS % (AUTO) 64.2 % (45.0-75.0); PLATELET COUNT 315 K/UL (150-450); RED BLOOD COUNT 3.43 M/UL (4.20-5.40); RED CELL DISTRIBUTION WIDTH 16.5 % (11.6-14.8); WHITE BLOOD COUNT 9.9 K/UL (4.8-10.8)
[2020-01-08] VITALS: BP 136/58
[2020-01-08 04:00] VITALS: BP 131/62
[2020-01-08] MEDS: Levothyroxine 125mcg tab ORAL SCH (06:22)
[2020-01-08 06:58] LABS: BASOPHILS % (AUTO) 0.8 % (0.0-2.0); EOSINOPHILS % (AUTO) 4.6 % (0.0-3.0); HEMATOCRIT 27.5 % (37.0-47.0); HEMOGLOBIN 8.7 G/DL (12.0-16.0); LYMPHOCYTES % (AUTO) 23.4 % (20.0-45.0); MEAN CORPUSCULAR VOLUME 76 FL (80-99); NEUTROPHILS % (AUTO) 64.1 % (45.0-75.0); PLATELET COUNT 334 K/UL (150-450); RED BLOOD COUNT 3.63 M/UL (4.20-5.40); RED CELL DISTRIBUTION WIDTH 16.7 % (11.6-14.8); WHITE BLOOD COUNT 8.7 K/UL (4.8-10.8)
[2020-01-08 07:47] LABS: ALANINE AMINOTRANSFERASE 20 U/L (12-78); ALBUMIN 2.6 G/DL (3.4-5.0); ALBUMIN/GLOBULIN RATIO 0.5 (1.0-2.7); ALKALINE PHOSPHATASE 103 U/L (46-116); ANION GAP 15 mmol/L (5-15); ASPARTATE AMINO TRANSFERASE 17 U/L (15-37); BILIRUBIN,TOTAL 0.2 MG/DL (0.2-1.0); BLOOD UREA NITROGEN 70 mg/dL (7-18); CALCIUM 9.4 MG/DL (8.5-10.1); CARBON DIOXIDE 17 MMOL/L (21-32); CHLORIDE 111 MMOL/L (98-107); PHOSPHORUS 3.8 MG/DL (2.5-4.9); POTASSIUM 4.8 MMOL/L (3.5-5.1); SODIUM 143 MMOL/L (136-145)
[2020-01-08 08:00] VITALS: BP 144/70
[2020-01-08] MEDS: Sucralfate 1gm tab ORAL SCH ×3 (10:02→18:41)
[2020-01-08] MEDS: Docusate 100mg cap ORAL SCH ×3 (10:03→18:00)
--- NOTE | 2020-01-08 10:41 | GI Progress Note ---
Assessment/Plan Problems: (1) Anemia in chronic kidney disease (CKD) ICD Codes: N18.9 - Chronic kidney disease, unspecified; D63.1 - Anemia in chronic kidney disease SNOMED: 166555170 (2) Symptomatic anemia ICD Codes: D64.9 - Anemia, unspecified SNOMED: 584546295 Status: stable Status Narrative Discussed with Dr. Garcia. Assessment/Plan SUMMARY OF FINDINGS: 1. Atrophic gastritis, status post biopsy. 2. Three colonic polyps removed. See above for details. 3. Internal hemorrhoids. RECOMMENDATIONS: advance diet prn transfusions ppi Follow up pathology given three polyps. We recommend repeat colonoscopy in three years. send for additional OB stool recommend outpatient capsule endoscopy dc planning per primary The patient was seen and examined at bedside and all new and available data was reviewed in the patients chart. I agree with the above findings, impression and plan. (Patient seen earlier today. Signature stamp does not reflect patient encounter time.). - Todd Garcia MD Subjective Gastrointestinal/Abdominal: Reports: no symptoms Objective Last 24 Hour Vital Signs Date Time Temp Pulse Resp B/P (MAP) Pulse Ox O2 Delivery O2 Flow Rate FiO2 01/08/20 10:02 66 144/70 01/08/20 04:00 97.8 73 18 131/62 (85) 96 01/08/20 00:00 98.6 79 17 136/58 (84) 96 01/07/20 21:00 Room Air 01/07/20 20:00 99.3 68 18 151/75 (100) 96 01/07/20 18:51 66 154/71 01/07/20 16:00 98.9 66 18 154/71 (98) 96 01/07/20 12:00 98.5 75 18 148/80 (102) 99 01/07/20 11:14 71 154/69 Laboratory Tests Test 01/07/20 21:05 01/08/20 05:10 White Blood Count 9.9 K/UL (4.8-10.8) 8.7 K/UL (4.8-10.8) Red Blood Count 3.43 M/UL (4.20-5.40) L 3.63 M/UL (4.20-5.40) L Hemoglobin 8.3 G/DL (12.0-16.0) L 8.7 G/DL (12.0-16.0) L Hematocrit 26.1 % (37.0-47.0) L 27.5 % (37.0-47.0) L Mean Corpuscular Volume 76 FL (80-99) L 76 FL (80-99) L Mean Corpuscular Hemoglobin 24.1 PG (27.0-31.0) L 24.0 PG (27.0-31.0) L Mean Corpuscular Hemoglobin Concent 31.6 G/DL (32.0-36.0) L 31.7 G/DL (32.0-36.0) L Red Cell Distribution Width 16.5 % (11.6-14.8) H 16.7 % (11.6-14.8) H Platelet Count 315 K/UL (150-450) 334 K/UL (150-450) Mean Platelet Volume 5.1 FL (6.5-10.1) L 5.2 FL (6.5-10.1) L Neutrophils (%) (Auto) 64.2 % (45.0-75.0) 64.1 % (45.0-75.0) Lymphocytes (%) (Auto) 22.4 % (20.0-45.0) 23.4 % (20.0-45.0) Monocytes (%) (Auto) 8.0 % (1.0-10.0) 7.0 % (1.0-10.0) Eosinophils (%) (Auto) 4.5 % (0.0-3.0) H 4.6 % (0.0-3.0) H Basophils (%) (Auto) 1.0 % (0.0-2.0) 0.8 % (0.0-2.0) Sodium Level 143 MMOL/L (136-145) Potassium Level 4.8 MMOL/L (3.5-5.1) Chloride Level 111 MMOL/L (98-107) H Carbon Dioxide Level 17 MMOL/L (21-32) L Anion Gap 15 mmol/L (5-15) Blood Urea Nitrogen 70 mg/dL (7-18) H Creatinine 4.0 MG/DL (0.55-1.30) H Estimat Glomerular Filtration Rate 13.5 mL/min (>60) Glucose Level 85 MG/DL (74-106) Uric Acid 6.0 MG/DL (2.6-7.2) Calcium Level 9.4 MG/DL (8.5-10.1) Phosphorus Level 3.8 MG/DL (2.5-4.9) Magnesium Level 1.7 MG/DL (1.8-2.4) L Total Bilirubin 0.2 MG/DL (0.2-1.0) Aspartate Amino Transf (AST/SGOT) 17 U/L (15-37) Alanine Aminotransferase (ALT/SGPT) 20 U/L (12-78) Alkaline Phosphatase 103 U/L (46-116) C-Reactive Protein, Quantitative 8.8 mg/dL (0.00-0.90) H Pro-B-Type Natriuretic Peptide 732 pg/mL (0-125) H Total Protein 7.9 G/DL (6.4-8.2) Albumin 2.6 G/DL (3.4-5.0) L Globulin 5.3 g/dL Albumin/Globulin Ratio 0.5 (1.0-2.7) L Thyroid Stimulating Hormone (TSH) 8.653 uiU/mL (0.358-3.740) Height (Feet): 5 Height (Inches): 4.00 Weight (Pounds): 182 General Appearance: WD/WN, no apparent distress, alert Cardiovascular: normal rate Respiratory/Chest: normal breath sounds, no respiratory distress Abdominal Exam: normal bowel sounds, non tender, soft Extremities: normal range of motion, non-tender Eran Perea NP Jan 08, 2020 10:41
[2020-01-08 12:00] VITALS: BP 139/66
--- NOTE | 2020-01-08 13:59 | Nephrology Progress Note ---
Assessment/Plan Problem List: (1) Acute on chronic renal insufficiency (2) History of hypertension (3) Anemia in chronic kidney disease (CKD) (4) Hypertensive kidney disease (5) Breast cancer Assessment Acute renal failure- ? CKD underlying- Severe Anemia- Low MCV HypoThyroid h/o Breast Ca . Plan Cr 4. stable Iron panel- Low Iron IV Iron Allopurinol EPO SQ Keep BP in check Avoid Nephrotoxics 2D echo 60% folic acid Kidney [facility] Medical renal disease. Left kidney somewhat limited in evaluation. 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 CT may be confirmatory. Subjective ROS Limited/Unobtainable: No Objective Objective Last 24 Hour Vital Signs Date Time Temp Pulse Resp B/P (MAP) Pulse Ox O2 Delivery O2 Flow Rate FiO2 01/08/20 12:00 98.2 67 20 139/66 (90) 93 01/08/20 10:02 66 144/70 01/08/20 09:00 Room Air 01/08/20 08:00 98.5 66 20 144/70 (94) 94 01/08/20 04:00 97.8 73 18 131/62 (85) 96 01/08/20 00:00 98.6 79 17 136/58 (84) 96 01/07/20 21:00 Room Air 01/07/20 20:00 99.3 68 18 151/75 (100) 96 01/07/20 18:51 66 154/71 01/07/20 16:00 98.9 66 18 154/71 (98) 96 Current Medications Medications (Trade) Dose Ordered Sig/Liam Route PRN Reason Start Time Stop Time Status Last Admin Dose Admin Acetaminophen (Tylenol) 650 mg Q4H PRN ORAL fever 01/05/20 12:56 02/04/20 12:55 Allopurinol (allopurinoL) 300 mg DAILY ORAL 01/06/20 09:00 02/03/20 08:59 01/08/20 10:02 Cyclobenzaprine HCl (Flexeril) 10 mg TIDPRN PRN ORAL Muscle Spasm 01/05/20 12:57 02/04/20 12:56 01/05/20 13:17 Dextrose (Dextrose 50%) 25 ml Q30M PRN IV Hypoglycemia 01/05/20 13:15 01/30/20 18:44 Dextrose (Dextrose 50%) 50 ml Q30M PRN IV Hypoglycemia 01/05/20 13:15 01/30/20 18:44 Docusate Sodium (Colace) 100 mg THREE TIMES A DAY ORAL 01/05/20 13:00 01/31/20 12:59 01/08/20 10:03 Epoetin Jose Ramon (Epoetin Jose Ramon-EPBX(NON ESRD)) 10,000 unit SAT-SAT-SAT SUBQ 01/06/20 21:00 02/03/20 20:59 01/06/20 21:32 Folic Acid (Folate) 2 mg DAILY ORAL 01/06/20 09:00 01/31/20 10:14 01/08/20 10:03 Hydralazine HCl (Apresoline) 25 mg Q4H PRN ORAL bp over 160 syst 01/05/20 12:58 02/04/20 12:57 01/06/20 12:34 Iron Sucrose 100 mg/Sodium Chloride 55 ml @ 200 mls/hr BEDTIME IV 01/05/20 21:00 01/10/20 21:17 01/07/20 21:40 Levothyroxine Sodium (Synthroid) 100 mcg Q24H ORAL 01/06/20 06:30 02/01/20 06:29 01/08/20 06:22 Levothyroxine Sodium (Synthroid) 125 mcg DAILY@0630 ORAL 01/06/20 06:30 02/01/20 06:29 01/08/20 06:22 Lidocaine (Xylocaine 5% cream) 1 applic DAILY TOPIC 01/05/20 15:00 02/04/20 14:59 01/08/20 10:03 Nifedipine (Procardia XL) 60 mg BID ORAL 01/05/20 18:00 02/02/20 08:59 01/08/20 10:02 Pantoprazole (Protonix) 40 mg EVERY 12 HOURS ORAL 01/05/20 21:00 01/31/20 20:59 01/08/20 10:01 Polyethylene Glycol (Miralax) 17 gm HSPRN PRN ORAL Constipation 01/05/20 13:00 02/04/20 12:59 Sucralfate (Carafate) 1 gm FOUR TIMES A DAY ORAL 01/06/20 21:00 02/05/20 20:59 01/08/20 10:02 Laboratory Tests 01/07/20 21:05: White Blood Count 9.9, Red Blood Count 3.43L, Hemoglobin 8.3L, Hematocrit 26.1L , Mean Corpuscular Volume 76L, Mean Corpuscular Hemoglobin 24.1L, Mean Corpuscular Hemoglobin Concent 31.6L, Red Cell Distribution Width 16.5H, Platelet Count 315, Mean Platelet Volume 5.1L, Neutrophils (%) (Auto) 64.2, Lymphocytes (%) (Auto) 22.4, Monocytes (%) (Auto) 8.0, Eosinophils (%) (Auto) 4.5H, Basophils (%) (Auto) 1.0 01/08/20 05:10: White Blood Count 8.7, Red Blood Count 3.63L, Hemoglobin 8.7L, Hematocrit 27.5L , Mean Corpuscular Volume 76L, Mean Corpuscular Hemoglobin 24.0L, Mean Corpuscular Hemoglobin Concent 31.7L, Red Cell Distribution Width 16.7H, Platelet Count 334, Mean Platelet Volume 5.2L, Neutrophils (%) (Auto) 64.1, Lymphocytes (%) (Auto) 23.4, Monocytes (%) (Auto) 7.0, Eosinophils (%) (Auto) 4.6H, Basophils (%) (Auto) 0.8, Sodium Level 143, Potassium Level 4.8, Chloride Level 111H, Carbon Dioxide Level 17L, Anion Gap 15, Blood Urea Nitrogen 70H, Creatinine 4.0H, Estimat Glomerular Filtration Rate 13.5, Glucose Level 85, Uric Acid 6.0, Calcium Level 9.4, Phosphorus Level 3.8, Magnesium Level 1.7L, Total Bilirubin 0.2, Aspartate Amino Transf (AST/SGOT) 17, Alanine Aminotransferase (ALT/SGPT) 20, Alkaline Phosphatase 103, C-Reactive Protein, Quantitative 8.8H, Pro-B-Type Natriuretic Peptide 732H, Total Protein 7.9, Albumin 2.6L, Globulin 5.3, Albumin/Globulin Ratio 0.5L, Thyroid Stimulating Hormone (TSH) 8.653H Height (Feet): 5 Height (Inches): 4.00 Weight (Pounds): 182 General Appearance: no apparent distress Cardiovascular: normal rate Respiratory/Chest: decreased breath sounds Abdomen: soft Objective no change Iggy Springer MD Jan 08, 2020 13:59
--- NOTE | 2020-01-08 14:26 | Pulmonology Progress Note ---
Assessment/Plan Problems: (1) GI bleeding (2) Symptomatic anemia (3) Musculoskeletal chest pain (4) Acute on chronic renal insufficiency (5) History of hypertension (6) Hypothyroidism (7) CAD (coronary artery disease) (8) Hypertensive kidney disease Assessment/Plan symptomatic treatment with Lidocaine patch and Flexeri GED showed gastritis and some colonic polyps were removed f/u renal recommendation echo reviewed, EF is 60-65% monitor BP s/p prbc times two repeat OB pending PT/ot might need to go to a rehab facility Subjective ROS Limited/Unobtainable: No Interval Events: doing better Allergies: Coded Allergies: No Known Allergies (Unverified , 12/31/19) Objective Last 24 Hour Vital Signs Date Time Temp Pulse Resp B/P (MAP) Pulse Ox O2 Delivery O2 Flow Rate FiO2 01/08/20 12:00 98.2 67 20 139/66 (90) 93 01/08/20 10:02 66 144/70 01/08/20 09:00 Room Air 01/08/20 08:00 98.5 66 20 144/70 (94) 94 01/08/20 04:00 97.8 73 18 131/62 (85) 96 01/08/20 00:00 98.6 79 17 136/58 (84) 96 01/07/20 21:00 Room Air 01/07/20 20:00 99.3 68 18 151/75 (100) 96 01/07/20 18:51 66 154/71 01/07/20 16:00 98.9 66 18 154/71 (98) 96 General Appearance: WD/WN HEENT: normocephalic, atraumatic Respiratory/Chest: chest wall non-tender, lungs clear Breasts: no masses Cardiovascular: normal peripheral pulses Abdomen: normal bowel sounds, soft, non tender Genitourinary: normal external genitalia Skin: no rash, no ulcers Laboratory Tests 01/07/20 21:05: White Blood Count 9.9, Red Blood Count 3.43L, Hemoglobin 8.3L, Hematocrit 26.1L , Mean Corpuscular Volume 76L, Mean Corpuscular Hemoglobin 24.1L, Mean Corpuscular Hemoglobin Concent 31.6L, Red Cell Distribution Width 16.5H, Platelet Count 315, Mean Platelet Volume 5.1L, Neutrophils (%) (Auto) 64.2, Lymphocytes (%) (Auto) 22.4, Monocytes (%) (Auto) 8.0, Eosinophils (%) (Auto) 4.5H, Basophils (%) (Auto) 1.0 01/08/20 05:10: White Blood Count 8.7, Red Blood Count 3.63L, Hemoglobin 8.7L, Hematocrit 27.5L , Mean Corpuscular Volume 76L, Mean Corpuscular Hemoglobin 24.0L, Mean Corpuscular Hemoglobin Concent 31.7L, Red Cell Distribution Width 16.7H, Platelet Count 334, Mean Platelet Volume 5.2L, Neutrophils (%) (Auto) 64.1, Lymphocytes (%) (Auto) 23.4, Monocytes (%) (Auto) 7.0, Eosinophils (%) (Auto) 4.6H, Basophils (%) (Auto) 0.8, Sodium Level 143, Potassium Level 4.8, Chloride Level 111H, Carbon Dioxide Level 17L, Anion Gap 15, Blood Urea Nitrogen 70H, Creatinine 4.0H, Estimat Glomerular Filtration Rate 13.5, Glucose Level 85, Uric Acid 6.0, Calcium Level 9.4, Phosphorus Level 3.8, Magnesium Level 1.7L, Total Bilirubin 0.2, Aspartate Amino Transf (AST/SGOT) 17, Alanine Aminotransferase (ALT/SGPT) 20, Alkaline Phosphatase 103, C-Reactive Protein, Quantitative 8.8H, Pro-B-Type Natriuretic Peptide 732H, Total Protein 7.9, Albumin 2.6L, Globulin 5.3, Albumin/Globulin Ratio 0.5L, Thyroid Stimulating Hormone (TSH) 8.653H Current Medications Medications (Trade) Dose Ordered Sig/Liam Route PRN Reason Start Time Stop Time Status Last Admin Dose Admin Acetaminophen (Tylenol) 650 mg Q4H PRN ORAL fever 01/05/20 12:56 02/04/20 12:55 Allopurinol (allopurinoL) 300 mg DAILY ORAL 01/06/20 09:00 02/03/20 08:59 01/08/20 10:02 Cyclobenzaprine HCl (Flexeril) 10 mg TIDPRN PRN ORAL Muscle Spasm 01/05/20 12:57 02/04/20 12:56 01/05/20 13:17 Dextrose (Dextrose 50%) 25 ml Q30M PRN IV Hypoglycemia 01/05/20 13:15 01/30/20 18:44 Dextrose (Dextrose 50%) 50 ml Q30M PRN IV Hypoglycemia 01/05/20 13:15 01/30/20 18:44 Docusate Sodium (Colace) 100 mg THREE TIMES A DAY ORAL 01/05/20 13:00 01/31/20 12:59 01/08/20 13:58 Epoetin Jose Ramon (Epoetin Jose Ramon-EPBX(NON ESRD)) 10,000 unit SAT- SUBQ 01/06/20 21:00 02/03/20 20:59 01/06/20 21:32 Folic Acid (Folate) 2 mg DAILY ORAL 01/06/20 09:00 01/31/20 10:14 01/08/20 10:03 Hydralazine HCl (Apresoline) 25 mg Q4H PRN ORAL bp over 160 syst 01/05/20 12:58 02/04/20 12:57 01/06/20 12:34 Iron Sucrose 100 mg/Sodium Chloride 55 ml @ 200 mls/hr BEDTIME IV 01/05/20 21:00 01/10/20 21:17 01/07/20 21:40 Levothyroxine Sodium (Synthroid) 100 mcg Q24H ORAL 01/06/20 06:30 02/01/20 06:29 01/08/20 06:22 Levothyroxine Sodium (Synthroid) 125 mcg DAILY@0630 ORAL 01/06/20 06:30 02/01/20 06:29 01/08/20 06:22 Lidocaine (Xylocaine 5% cream) 1 applic DAILY TOPIC 01/05/20 15:00 02/04/20 14:59 01/08/20 10:03 Nifedipine (Procardia XL) 60 mg BID ORAL 01/05/20 18:00 02/02/20 08:59 01/08/20 10:02 Pantoprazole (Protonix) 40 mg EVERY 12 HOURS ORAL 01/05/20 21:00 01/31/20 20:59 01/08/20 10:01 Polyethylene Glycol (Miralax) 17 gm HSPRN PRN ORAL Constipation 01/05/20 13:00 02/04/20 12:59 Sucralfate (Carafate) 1 gm FOUR TIMES A DAY ORAL 01/06/20 21:00 02/05/20 20:59 01/08/20 13:58 Bean Gil MD Jan 08, 2020 14:26
[2020-01-08 16:00] VITALS: BP 134/57
[2020-01-08] MEDS ORDERED: ALLOPURINOL300 M1 ORAL (17:28)
[2020-01-08] MEDS ORDERED: DOCUSATE SODIU100 MG ORAL (17:28)
[2020-01-08] MEDS ORDERED: FOLIC ACID1 MG ORAL (17:29)
[2020-01-08] MEDS ORDERED: CARAFATE1 G1 ORAL (17:33)
[2020-01-08] MEDS ORDERED: PROCARDIA XL30 MG ORAL (17:33)
[2020-01-08] MEDS ORDERED: PROTONIX40 MG ORAL (17:33)
[2020-01-08] MEDS ORDERED: ACETAMINOPHEN325 M1 ORAL (17:34)
[2020-01-08] MEDS ORDERED: SYNTHROID100 MCG ORAL (17:37)
--- NOTE | 2020-01-08 19:13 | Internal Med Progress Note ---
Subjective Date of Service: Jan 08, 2020 Physician Name Josué Jenkins Attending Physician Avila Gaspar MD Current Medications Medications (Trade) Dose Ordered Sig/Liam Route PRN Reason Start Time Stop Time Status Last Admin Dose Admin Acetaminophen (Tylenol) 650 mg Q4H PRN ORAL fever 01/05/20 12:56 02/04/20 12:55 Allopurinol (allopurinoL) 300 mg DAILY ORAL 01/06/20 09:00 02/03/20 08:59 01/08/20 10:02 Cyclobenzaprine HCl (Flexeril) 10 mg TIDPRN PRN ORAL Muscle Spasm 01/05/20 12:57 02/04/20 12:56 01/05/20 13:17 Dextrose (Dextrose 50%) 25 ml Q30M PRN IV Hypoglycemia 01/05/20 13:15 01/30/20 18:44 Dextrose (Dextrose 50%) 50 ml Q30M PRN IV Hypoglycemia 01/05/20 13:15 01/30/20 18:44 Docusate Sodium (Colace) 100 mg THREE TIMES A DAY ORAL 01/05/20 13:00 01/31/20 12:59 01/08/20 13:58 Epoetin Jose Ramon (Epoetin Jose Ramon-EPBX(NON ESRD)) 10,000 unit SAT-SAT-SAT SUBQ 01/06/20 21:00 02/03/20 20:59 01/06/20 21:32 Folic Acid (Folate) 2 mg DAILY ORAL 01/06/20 09:00 01/31/20 10:14 01/08/20 10:03 Hydralazine HCl (Apresoline) 25 mg Q4H PRN ORAL bp over 160 syst 01/05/20 12:58 02/04/20 12:57 01/06/20 12:34 Iron Sucrose 100 mg/Sodium Chloride 55 ml @ 200 mls/hr BEDTIME IV 01/05/20 21:00 01/10/20 21:17 01/07/20 21:40 Levothyroxine Sodium (Synthroid) 100 mcg Q24H ORAL 01/06/20 06:30 02/01/20 06:29 01/08/20 06:22 Levothyroxine Sodium (Synthroid) 125 mcg DAILY@0630 ORAL 01/06/20 06:30 02/01/20 06:29 01/08/20 06:22 Lidocaine (Xylocaine 5% cream) 1 applic DAILY TOPIC 01/05/20 15:00 02/04/20 14:59 01/08/20 10:03 Nifedipine (Procardia XL) 60 mg BID ORAL 01/05/20 18:00 02/02/20 08:59 01/08/20 18:42 Pantoprazole (Protonix) 40 mg EVERY 12 HOURS ORAL 01/05/20 21:00 01/31/20 20:59 01/08/20 10:01 Polyethylene Glycol (Miralax) 17 gm HSPRN PRN ORAL Constipation 01/05/20 13:00 02/04/20 12:59 Sucralfate (Carafate) 1 gm FOUR TIMES A DAY ORAL 01/06/20 21:00 02/05/20 20:59 01/08/20 18:41 Allergies: Coded Allergies: No Known Allergies (Unverified , 12/31/19) ROS Limited/Unobtainable: No Constitutional: Reports: no symptoms HEENT: Reports: no symptoms Cardiovascular: Reports: no symptoms Respiratory: Reports: no symptoms Gastrointestinal/Abdominal: Reports: abdominal pain Genitourinary: Reports: no symptoms Neurologic/Psychiatric: Reports: no symptoms Subjective 69 YO F admitted with fatigue, now severe anemia. Cover for Int Jose-Dr Gaspar. S /P Colonoscopy and endoscopy 01/06/20 Objective Last Vital Signs Date Time Temp Pulse Resp B/P (MAP) Pulse Ox O2 Delivery O2 Flow Rate FiO2 01/08/20 18:42 73 134/57 01/08/20 16:00 98.3 18 95 01/08/20 09:00 Room Air 01/06/20 11:35 3 Laboratory Tests Test 01/07/20 21:05 01/08/20 05:10 White Blood Count 9.9 K/UL (4.8-10.8) 8.7 K/UL (4.8-10.8) Red Blood Count 3.43 M/UL (4.20-5.40) L 3.63 M/UL (4.20-5.40) L Hemoglobin 8.3 G/DL (12.0-16.0) L 8.7 G/DL (12.0-16.0) L Hematocrit 26.1 % (37.0-47.0) L 27.5 % (37.0-47.0) L Mean Corpuscular Volume 76 FL (80-99) L 76 FL (80-99) L Mean Corpuscular Hemoglobin 24.1 PG (27.0-31.0) L 24.0 PG (27.0-31.0) L Mean Corpuscular Hemoglobin Concent 31.6 G/DL (32.0-36.0) L 31.7 G/DL (32.0-36.0) L Red Cell Distribution Width 16.5 % (11.6-14.8) H 16.7 % (11.6-14.8) H Platelet Count 315 K/UL (150-450) 334 K/UL (150-450) Mean Platelet Volume 5.1 FL (6.5-10.1) L 5.2 FL (6.5-10.1) L Neutrophils (%) (Auto) 64.2 % (45.0-75.0) 64.1 % (45.0-75.0) Lymphocytes (%) (Auto) 22.4 % (20.0-45.0) 23.4 % (20.0-45.0) Monocytes (%) (Auto) 8.0 % (1.0-10.0) 7.0 % (1.0-10.0) Eosinophils (%) (Auto) 4.5 % (0.0-3.0) H 4.6 % (0.0-3.0) H Basophils (%) (Auto) 1.0 % (0.0-2.0) 0.8 % (0.0-2.0) Sodium Level 143 MMOL/L (136-145) Potassium Level 4.8 MMOL/L (3.5-5.1) Chloride Level 111 MMOL/L (98-107) H Carbon Dioxide Level 17 MMOL/L (21-32) L Anion Gap 15 mmol/L (5-15) Blood Urea Nitrogen 70 mg/dL (7-18) H Creatinine 4.0 MG/DL (0.55-1.30) H Estimat Glomerular Filtration Rate 13.5 mL/min (>60) Glucose Level 85 MG/DL (74-106) Uric Acid 6.0 MG/DL (2.6-7.2) Calcium Level 9.4 MG/DL (8.5-10.1) Phosphorus Level 3.8 MG/DL (2.5-4.9) Magnesium Level 1.7 MG/DL (1.8-2.4) L Total Bilirubin 0.2 MG/DL (0.2-1.0) Aspartate Amino Transf (AST/SGOT) 17 U/L (15-37) Alanine Aminotransferase (ALT/SGPT) 20 U/L (12-78) Alkaline Phosphatase 103 U/L (46-116) C-Reactive Protein, Quantitative 8.8 mg/dL (0.00-0.90) H Pro-B-Type Natriuretic Peptide 732 pg/mL (0-125) H Total Protein 7.9 G/DL (6.4-8.2) Albumin 2.6 G/DL (3.4-5.0) L Globulin 5.3 g/dL Albumin/Globulin Ratio 0.5 (1.0-2.7) L Thyroid Stimulating Hormone (TSH) 8.653 uiU/mL (0.358-3.740) Objective PHYSICAL EXAMINATION: GENERAL: The patient is awake, responsive, and in no acute distress. HEAD AND NECK: Pupils are equal and reactive to light. Extraocular movements intact. NECK: Supple. No JVD. LUNGS: Good air entry. No wheeze or rales. HEART: S1, S2. Regular rhythm. No murmur or gallops. ABDOMEN: Soft, nondistended, and nontender. Positive bowel sounds. EXTREMITIES: No cyanosis, clubbing, or edema. NEUROLOGIC: Cranial nerves II through XII grossly intact. RECTAL: Refused and deferred. GENITOURINARY: Refused and deferred. PSYCHIATRIC: Mood and affect is intact. Assessment/Plan Assessment/Plan ASSESSMENT: 1. Severe symptomatic anemia, possible due to anemia of chronic disease; however, cannot rule out GI etiology. 2. Hypothyroidism. 3. Folic acid deficiency. 4. Hypertension. 5. Coronary artery disease. 6. Acute kidney injury on chronic renal insufficiency. 7. History of breast cancer. 8. occult blood positive 9. Gastritis PLAN: 1. Admit the patient to medical floor. We will follow up with the 2. Code status is Full Code. 3. S/P transfusion 1 unit PRBC on 12/31/19 4. Nephrology =Dr Springer 5. Pulmonary consultation=Dr Gil. 6. DVT prophylaxis, SCD. 7. S/P transfusion 2 unit PRBC 12/31/19 and 01/03/20 8. Anemia workup-GI=Dr Garcia. Stool for occult blood=positive; S/P colonoscopy and endoscopy 01/06/20 9. Protonix BID and carafate 10. Discharge planning Josué Jenkins MD Jan 08, 2020 19:13
[2020-01-08 20:00] VITALS: BP 138/70
[2020-01-08] MEDS ORDERED: Tubing IV Secondary IV ONE (20:24)
--- NOTE | 2020-01-10 15:31 | Discharge Summary ---
Discharge Summary Discharge Summary _ DATE OF ADMISSION: 12/31/2019 DATE OF DISCHARGE: 01/08/2020 ADMITTING MD: Dr. Avila Gaspar DISCHARGED BY: Dr. Bean Gil CONSULTANTS: Dr. Bean Gardner BRIEF HOSPITAL COURSE: Patient is a 69-year-old -[place] female, with past medical history significant for hypothyroidism, chronic kidney disease, hypertension, coronary artery disease, breast cancer in 2011 status post surgery, chemo and radiation therapy, who presented to the emergency room complaining of feeling tired. The patient became progressively worse over the past week. Outside laboratory drawn was noted to have hemoglobin of 6.6. Patient was sent in from clinic for work-up. Patient denies black tarry stools. No vaginal bleeding, no rectal bleeding. Upon evaluation at ED, blood work showed hemoglobin of 7.3, hematocrit 24.6. Electrolytes were normal. Creatinine was elevated to 4.4. BUN 97. Patient was then admitted for evaluation of anemia and renal failure. She was given blood transfusion. Resume home medications. Anemia work-up done was consistent with iron deficiency anemia. She was eventually given Venofer. She also showed folate deficiency. She was given folic acid replacement. She was given proton pump inhibitors. Kidney ultrasound showed echogenic kidneys consistent with medical renal disease. 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 TSH was elevated. Levothyroxine was increased to 225 mcg. Advised to recheck in 3 to 4 weeks. There was again a drop in patient's hemoglobin. Stool OB was positive. GI consulted. Patient was planned for endoscopy. She complained of chest pain. Troponin was negative. EKG was in sinus rhythm. Chest pain eventually resolved. There were no changes seen on the monitor. Echocardiogram showed preserved ejection fraction. Barrel Raiser was consulted. Patient was hemodynamically stable. Echocardiogram stable. Patient was given symptomatic treatment with lidocaine patch and Flexeril for musculoskeletal chest pain. On 01/06/2020, patient underwent upper endoscopy and colonoscopy. Findings showed atrophic gastritis; 3 colonic polyps were removed. No obvious evidence of lower GI bleed. Recommend repeat colonoscopy in 3 years. She was given Protonix and Carafate. Recommend outpatient capsule endoscopy. He was given physical therapy. Patient was eventually discharged to a SNF. FINAL DIAGNOSES: Severe symptomatic anemia, requiring blood transfusion Status post EGD with findings of gastritis Acute kidney injury on stage IV CKD Iron deficiency anemia Folic acid deficiency Musculoskeletal pain Hypothyroidism Hypertensive kidney disease Coronary artery disease History of breast cancer DISPOSITION: Patient is discharged home with home health. DISCHARGE MEDICATIONS: Refer to Discharge Medication List. DISCHARGE INSTRUCTIONS: Follow-up in a week. I have been assigned to complete a discharge summary on this account, I was not involved with the patient's management.--CELINA eMndez Jacqueline Robles NP Jan 10, 2020 15:31
--- NOTE | 2020-02-02 09:17 | Coder Physician Query ---
Clarification is required for compliance, coding accuracy, and to reflect severity of illness for this patient Dear Dr. Jenkins, Date: 02.02.20 CDS Name: Miley South Please clarify the specific type of anemia below: Patient received blood transfusion and had positive occult blood test, with removal of three colonic polyps on this visit. Acuity [X]Acute []Acute on Chronic []Chronic Etiology [ ] Blood loss due to colonic polyps [ X] Blood loss due other [ ] blood loss due to unknown [ ] Other Present on Admission: [X ] Yes [ ] No [ ] Clinically Undetermined Physician signature Date Please also document in your Progress Notes and/or Discharge Summary and indicate if the condition was present on admission. MTDD
== END 2020-01-08 20:25 | disposition home health service (06) | DRG 812 ==
LOC: EDBD 15:36 → EMR 15:45 → 3E 17:35 → EDBEDREQ 18:19 → 4E 22:39 → 2E 01-03 15:33 → 3E 01-05 12:50
PROC: 30233N1 Transfusion of Nonautologous Red Blood Cells into Peripheral Vein, Percutaneous Approach (ICD-10-PCS; principal; 2019-12-31)
PROC: 0DBN8ZZ Excision of Sigmoid Colon, Via Natural or Artificial Opening Endoscopic (ICD-10-PCS; 2020-01-06 10:58)
PROC: 0DB78ZX Excision of Stomach, Pylorus, Via Natural or Artificial Opening Endoscopic, Diagnostic (ICD-10-PCS; 2020-01-06 10:58)
DX: D50.9 Iron deficiency anemia, unspecified (principal); N17.9 Acute kidney failure, unspecified; N18.4 Chronic kidney disease, stage 4 (severe); I12.9 Hypertensive chronic kidney disease with stage 1 through stage 4 chronic kidney disease, or unspecified chronic kidney disease; D63.1 Anemia in chronic kidney disease; E03.9 Hypothyroidism, unspecified; I25.10 Atherosclerotic heart disease of native coronary artery without angina pectoris; N18.9 Chronic kidney disease, unspecified; E53.8 Deficiency of other specified B group vitamins; Z85.3 Personal history of malignant neoplasm of breast; Z92.3 Personal history of irradiation; K63.5 Polyp of colon; K64.8 Other hemorrhoids; K29.40 Chronic atrophic gastritis without bleeding; R07.89 Other chest pain
CPT/HCPCS: 36415; 36430; 71045; 74176; 76770; 80048; 80053; 80061; 80076; 81001; 82270; 82378; 82550; 82607; 82728; 82746; 83036; 83540; 83550; 83615; 83735; 83880; 84100; 84133; 84300; 84439; 84443; 84481; 84484; 84550; 85007; 85025; 85044; 85060; 85610; 85651; 85730; 86140; 86850; 86900; 86901; 86920; 89050; 93005; 93306; 93931; 94003; 94150; 96374; 96375; 96376; 99291